=== PATIENT | male | born 1960 | race Caucasian/White ===

== ENCOUNTER 2018-08-19 15:10 | Emergency (ER) | payer BC ==
--- OUTSIDE RECORDS SUMMARY | 2018-08-19 15:11 | XMS REPORT ---
:1960 [facility] Address [address] [place] [address] Dr. Read [address] [place] [id number] Care Team Providers Name Role Phone Unavailable Unavailable Unavailable Payers Payer Name Policy Type Policy Number Effective Date Expiration Date Problems This patient has no known problems. Allergies, Adverse Reactions, Alerts Allergy Allergy Status Severity Reaction(s) Onset Inactive Treating Comments Name Type Date Date Clinician No Known DA Active U 2018-03 Drug -25 Allergies 00:00:0 0 No Known DA Active U 2018-03 Drug -24 Allergies 00:00:0 0 No Known DA Active U 2016-02 Drug -18 Allergies 00:00:0 0 Medications This patient has no known medications.
--- OUTSIDE RECORDS SUMMARY | 2018-08-19 15:11 | XMS REPORT | Clinical Summary ---
:1960 Author Organization [facility] Address [address] [place] [address] Care Team Providers Name Role Phone Hema De La Rosa DO Primary Care Provider Allergies No Known Allergies Medications Medication Sig Dispensed Refills Start Date End Date Status buprenorphine-naloxone Place 1 Film 0 Active (SUBOXONE) 8-2 mg film under the tongue daily. meloxicam (MOBIC) 7.5 Take by mouth 0 Active mg/5 mL suspension daily. cyclobenzaprine Take 10 mg by 0 Active (FLEXERIL) 10 mg tablet mouth 3 (three) times a day as needed for muscle spasms. Active Problems Not on file Encounters Date Type Specialty Care Team Description 07/31/2018 Office Visit Orthopedic Surgery Keanu Valadez Scoliosis, S. unspecified scoliosis type, unspecified spinal region (Primary Dx) 07/28/2018 Hospital Encounter Radiology Keanu Valadez 07/07/2018 Orders Only Orthopedic Surgery Obinna Perez MA Spinal stenosis of lumbar region, unspecified whether neurogenic claudication present (Primary Dx); Other kyphosis, site unspecified; Scoliosis, unspecified scoliosis type, unspecified spinal region 07/03/2018 Office Visit Orthopedic Surgery Keanu Valadez Other secondary S. scoliosis, lumbar region (Primary Dx) 05/08/2018 Hospital Encounter Radiology Keanu Valadez 05/08/2018 Hospital Encounter Radiology Keanu Valadez 05/08/2018 Hospital Encounter Radiology Keanu Valadez 05/08/2018 Hospital Encounter Radiology Keanu Valadez 05/08/2018 Office Visit Orthopedic Surgery Keanu Valadez Scoliosis, S. unspecified scoliosis type, unspecified spinal region (Primary Dx) after 08/18/2017 Social History Tobacco Use Types Packs/Day Years Used Date Former Smoker 1 20 Quit: 04/2018 Smokeless Tobacco: Never Used Alcohol Use Drinks/Week oz/Week Comments No Alcohol Habits Answer Date Recorded How often do you have a drink containing alcohol? Never 08/18/2018 How many drinks containing alcohol do you have on a typical Not asked day when you are drinking? How often do you have six or more drinks on one occasion? Not asked Sex Assigned at Date Recorded Not on file Job Start Date Occupation Industry Not on file Not on file Not on file Travel History Travel Start Travel End No recent travel history available. 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 Height 170.2 cm (5' 7") 08/18/2018 10:19 AM INSURANCE EXECUTIVE Body Mass Index 29.76 08/18/2018 10:19 AM INSURANCE EXECUTIVE Plan of Treatment Date Type Specialty Care Team Description 08/21/2018 Office Visit Neurosurgery Huseyin Childs MD [address] [facility] [address] [place] [address] [phone] Health Maintenance Due Date Last Done Comments COLON CANCER SCREENING 2008 SHINGLES VACCINES (1 of 2) 2008 INFLUENZA VACCINE 02/22/2018 Procedures Procedure Name Priority Date/Time Associated Diagnosis Comments CT SPINE EXTERNAL Routine 07/21/2018 1:39 PM Results for this STUDY INSURANCE EXECUTIVE procedure are in the results section. XR SPINE SCOLIOSIS Routine 05/08/2018 4:53 PM Scoliosis, Results for this 2-3 VIEWS CDT unspecified procedure are in scoliosis type, the results unspecified spinal section. region XR SPINE EXTERNAL Routine 04/12/2018 9:34 AM Results for this STUDY CDT procedure are in the results section. MRI SPINE EXTERNAL Routine 01/30/2018 12:47 PM Results for this STUDY CDT procedure are in the results section. after 08/18/[address] Spine External Study (07/21/2018 1:39 PM INSURANCE EXECUTIVE) Narrative Performed At This exam was not acquired at a [facility] facility and has not been [facility] interpreted by a [facility] Provider.The exam was imported into our imaging system for comparisons purposes. Performing Organization Address City/State/Zipcode Phone Number [facility] [address] [place] [address] XR Spine Scoliosos 2-3 Views (05/08/2018 4:53 PM CDT) Narrative Performed At Standing PA and lateral views of the entire spine are reviewed today.He SONYA BENNETT has a somewhat imbalanced scoliosis with a 31 degree right thoracic, 37 degree left lumbar curvature.The apex of his left lumbar curvature is L3.Coronal imbalance to the right.He has quite a bit of degenerative changes and bridging osteophytes throughout his spine.He appears to have prior laminectomy changes from L3 through L5, possibly L2 as well. Looking at his lateral film, he has severe spondylosis L5-S1, grade 1 degenerative spondylolisthesis at L4-5 with severe spondylosis at this level as well.He has 17 degrees of kyphosis from T10-L3.His C7 latasha line falls approximately 9 cm in front of the sacrum.27 degrees of lumbar lordosis and a pelvic incidence of 49 degrees, for a pelvic incidence lumbar lordosis mismatch of 22 degrees. Performing Organization Address [facility] Phone Number [facility] [address] [place] [address] XR Spine External Study (04/12/2018 9:34 AM CDT) Narrative Performed At This exam was not acquired at a [facility] facility and has not been [facility] interpreted by a [facility] Provider.The exam was imported into our imaging system for comparisons purposes. Performing Organization Address [facility] Phone Number [facility] [address] [place] [address] MRI Spine External Study (01/30/2018 12:47 PM CDT) Narrative Performed At This exam was not acquired at a [facility] facility and has not been [facility] interpreted by a [facility] Provider.The exam was imported into our imaging system for comparisons purposes. Performing Organization Address [facility] Phone Number [facility] [address] [place] [address] after 08/18/2017 Insurance Payer Benefit Plan / Group Subscriber ID Type Phone Address [facility] JOSSE CARRERO xxxxxxxxxxxx PPO Advance Directives Patient has advance care planning documents on file. For more information, please contact:Igor Rodgers[address] [place] [address]
--- NOTE | 2018-08-19 17:01 | RAD REPORT ---
EXAM DESCRIPTION: RAD - Foot Left 3 View - 08/19/2018 4:33 pm CLINICAL HISTORY: Left foot pain and swelling, trauma history COMPARISON: None. FINDINGS: No fracture, dislocation or periosteal reaction. No acute or destructive bony process. Mo derate-sized plantar and small Achilles spurs. No air or foreign body in the soft tissues. IMPRESSION: No fracture or acute bone finding. Plantar and Achilles spurs are present. Repeat imaging in 7 days recommended if the patient has continued symptoms concerning for fracture.
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
== END 2018-08-19 17:27 | disposition home or self-care (01) ==
LOC: ER 15:10
DX: S90.32XA Contusion of left foot, initial encounter (principal); W22.8XXA Striking against or struck by other objects, initial encounter; Y93.9 Activity, unspecified; Y92.9 Unspecified place or not applicable
CPT/HCPCS: 99283

== ENCOUNTER 2019-03-13 13:58 | Emergency (ER) | payer BC ==
--- OUTSIDE RECORDS SUMMARY | 2019-03-13 14:02 | XMS REPORT ---
:1960 [facility] Address [address] [place] [address] Dr. Read [address] [place] [id number] Care Team Providers Name Role Phone Unavailable [...]
--- OUTSIDE RECORDS SUMMARY | 2019-03-13 14:02 | XMS REPORT | Clinical Summary ---
:1960 Author Organization [facility] Address [address] [place] [address] Care Team Providers Name Role Phone Hema De La Rosa DO Primary Care Provider Allergies No Known Allergies Medications Medication Sig Dispensed Refills Start End Date Status Date cyclobenzaprine Take 10 mg 0 Active (FLEXERIL) 10 mg by mouth tablet daily. cholecalciferol, Take 1,000 0 Active vitamin D3, (VITAMIN Units by D3) 1,000 unit tablet mouth daily. ascorbic acid, Take 500 mg 0 Active vitamin C, (VITAMIN by mouth C) 500 MG tablet daily. testosterone every 30 0 Active cypionate (thirty) 9 (DEPOTESTOTERONE days. CYPIONATE) 200 mg/mL injection buprenorphine-naloxon Place 1 Film 0 11/05/19 Discontinued e (SUBOXONE) 8-2 mg under the 19 (Stop Taking at film tongue 2 Discharge) (two) times a day. meloxicam (MOBIC) 7.5 Take by 0 10/03/19 Discontinued mg/5 mL suspension mouth daily. 19 (Med List Cleanup) meloxicam (MOBIC) 7.5 every 0 11/05/19 Discontinued mg tablet morning. 8 19 (Stop Taking at Discharge) cyclobenzaprine Take 10 mg 0 10/03/19 Discontinued (FLEXERIL) 10 mg by mouth 7 19 (Duplicate tablet every order) morning. acetaminophen Take 2 0 11/05/19 Discontinued (TYLENOL) 325 MG tablets (650 9 19 (Stop Taking at tablet mg total) by Discharge) mouth every 8 (eight) hours as needed (pain) for up to 30 days. pregabalin (LYRICA) Take 1 0 11/05/19 Discontinued 150 MG capsule capsule (150 9 19 mg total) by mouth 3 (three) times a day for 30 days. heparin Inject 1 mL 0 11/05/19 Discontinued sodium,porcine (5,000 Units 9 19 (Stop Taking at (HEPARIN, PORCINE,) total) under Discharge) 5,000 unit/mL the skin injection every 12 (twelve) hours. ramelteon (ROZEREM) 8 Take 1 0 11/05/19 Discontinued mg tablet tablet (8 mg 9 19 total) by mouth nightly as needed for sleep. methylnaltrexone Inject 0.6 0 11/05/19 Discontinued (RELISTOR) 12 mg/0.6 mL (12 mg 9 19 (Stop Taking at mL syringe total) under Discharge) the skin every other day. morPHINE (MS CONTIN) Take 1 0 11/18/19 30 MG 12 hr tablet tablet (30 9 19 mg total) by mouth every 8 (eight) hours for 14 days. Max Daily Amount: 90 mg morPHINE Take 1 0 11/18/19 immediate-release 15 tablet (15 9 19 MG tablet mg total) by mouth every 4 (four) hours as needed (pain) for up to 14 days. Max Daily Amount: 90 mg pregabalin (LYRICA) Take 1 90 capsule 0 12/05/19 150 MG capsule capsule (150 9 19 mg total) by mouth 3 (three) times a day for 30 days. ramelteon (ROZEREM) 8 Take 1 15 tablet 0 11/20/19 mg tablet tablet (8 mg 9 19 total) by mouth nightly as needed for sleep for up to 15 days. 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 Scoliosis due to degenerative disease of spine in adult patient 08/21/2018 Lumbar stenosis with neurogenic claudication 08/21/2018 Encounters Date Type Specialty Care Team Description 02/14/2019 Office Visit Neurosurgery Huseyin Childs S/P lumbar fusion MD Addison (Primary Dx) 02/14/2019 Hospital Encounter Radiology Huseyin Childs Other form of MD Addison scoliosis of thoracolumbar spine 02/14/2019 Orders Only Neurosurgery Law, Lumbar pain (Primary Dx); DANE Brown Thoracic back pain, unspecified back pain laterality, unspecified chronicity; Scoliosis (and kyphoscoliosis), idiopathic; Scoliosis due to degenerative disease of spine in adult patient; Scoliosis of thoracolumbar region due to degenerative disease of spine in adult; Thoracic spine pain 02/12/2019 Orders Only Neurosurgery Huseyin hCilds Other form of MD Addison scoliosis of thoracolumbar spine (Primary Dx) 11/15/2018 Office Visit Neurosurgery Huseyin Childs Scoliosis due to MD Addison degenerative disease of spine in adult patient (Primary Dx) 11/15/2018 Hospital Encounter Radiology Huseyin Childs Scoliosis of MD Addison thoracolumbar spine, unspecified scoliosis type 11/15/2018 Orders Only Neurosurgery Mireya Pablo MA 11/14/2018 Orders Only Neurosurgery Angel Pablo of DANE Gomes thoracolumbar spine, unspecified scoliosis type (Primary Dx) 11/04/2018 Documentation Business Intelligence Director Alonzo Tanesha 10/28/2018 Documentation Otolaryngology Huseyin Childs MD 10/20/2018 Surgery General Surgery Huseyin Childs T9-S1 THORACOLUMBAR MD Addison POSTERIOR FUSION W/ INSTRUMENTATION, MULTI-LEVEL POWERS-LUNA OSTEOTOMIES, EMG'S, SSEP'S, MEP'S MONITORING 10/20/2018 Anesthesia Event General Surgery Hema Munoz MD Felan, Priyanka Araya, RADIATOR SPECIALIST 10/17/2018 Anesthesia Event General Surgery Piotr Ann MD Felan, Veronica Lynn, RADIATOR SPECIALIST 10/17/2018 Surgery General Surgery Huseyin Childs L5-S1 ANTERIOR LUMBAR MD Addison INTERBODY FUSION W/ INSTRUMETATION, L2-L5, LATERAL LUMBAR INTERBODY FUSION W/ INSTRUMENTATION W/ EMG'S, SSEP'S, AND MEP'S 10/17/2018 Hospital Encounter Neurosurgery Huseyin Childs Scoliosis due to degenerative disease of spine in adult patient; Jeanne Jaime MD Lumbar stenosis with neurogenic claudication 11/04/2018 10/02/2018 Hospital Encounter Radiology Huseyin Childs Preop examination MD Addison 10/02/2018 Pre-Admit Testing Pre-Admission Huseyin Childs Pre-op testing Appointment Testing MD Addison (Primary Dx) 10/02/2018 Transcribe Orders Access Huseyin Childs Preop examination MD Addison (Primary Dx) 08/21/2018 Hospital Encounter Radiology Huseyin Childs MD 08/21/2018 Hospital Encounter Radiology Huseyin Childs MD 08/21/2018 Hospital Encounter Radiology Huseyin Childs Other bonnie Jaime MD disorders of bone density and structure, multiple sites 08/21/2018 Hospital Encounter Radiology Huseyin Childs Other bonnie Jaime MD disorders of bone density and structure, multiple sites 08/21/2018 Office Visit Neurosurgery Huseyin Childs Sagittal plane imbalance (Primary Dx); MD Addison Scoliosis due to degenerative disease of spine in adult patient; Lumbar stenosis with neurogenic claudication 08/21/2018 Orders Only Neurosurgery Samy, Other specified DANE Gomes disorders of bone density and structure, multiple sites (Primary Dx) 07/31/2018 Office Visit Orthopedic Surgery Rory, Scoliosis, Keanu S. unspecified scoliosis type, unspecified spinal region (Primary Dx) 07/28/2018 Hospital Encounter Radiology Keanu Simpson SGregory 07/07/2018 Orders Only Orthopedic Surgery PerezYossi hamiltonro, Spinal stenosis of lumbar region, unspecified whether neurogenic claudication present (Primary Dx); DANE Other kyphosis, site unspecified; Scoliosis, unspecified scoliosis type, unspecified spinal region 07/03/2018 Office Visit Orthopedic Surgery Rory, Other secondary Keanu S. scoliosis, lumbar region (Primary Dx) 05/08/2018 Hospital Encounter Radiology Keanu Simpson S. 05/08/2018 Hospital Encounter Radiology Keanu Simpson S. 05/08/2018 Hospital Encounter Radiology Keanu Simpson S. 05/08/2018 Hospital Encounter Radiology Keanu Simpsno S. 05/08/2018 Office Visit Orthopedic Surgery Rory, Scoliosis, Keanu S. unspecified scoliosis type, unspecified spinal region (Primary Dx) after 03/12/2018 Family History Medical History Relation Name Comments Lung cancer Mother Relation Name Status Comments Father Bile duct cancer Mother Social History Tobacco Use Types Packs/Day Years Used Date Former Smoker 2 30 Quit: 07/2018 Smokeless Tobacco: Never Used Alcohol Use Drinks/Week oz/Week Comments Yes social Alcohol Habits Answer Date Recorded How often [...] Vital Signs Vital Sign Reading Time Taken Comments Blood Pressure 125/63 11/04/2018 11:24 AM CDT Pulse 70 11/04/2018 11:24 AM CDT Temperature 37.1 C (98.7 F) 11/04/2018 11:24 AM CDT Respiratory Rate 18 11/04/2018 11:24 AM CDT Oxygen Saturation 97% 11/04/2018 11:24 AM CDT Inhaled Oxygen Concentration - - Weight 83.9 kg (185 lb) 10/20/2018 7:00 AM CDT Height 167.6 cm (5' 6") 10/20/2018 7:00 AM CDT Body Mass Index 29.86 10/20/2018 7:00 AM CDT Plan of Treatment Date Type Specialty Care Team Description 10/22/2019 Appointment Radiology Huseyin Childs MD [address] [facility] [address] [place] [address] [phone] 10/22/2019 Appointment Radiology Huseyin Childs MD [address] [facility] [address] [place] [address] [phone] 10/22/2019 Appointment Radiology Huseyin Childs MD [address] [facility] [address] [place] [address] [phone] 10/22/2019 Appointment Radiology Huseyin Childs MD [address] [facility] [address] [place] [address] 10/22/2019 Appointment Radiology Huseyin Childs MD [address] [facility] [address] [place] [phone] 10/22/2019 Office Visit Neurosurgery Huseyin Childs MD [address] [address] [phone] Health Maintenance Due Date Last Done Comments COLONOSCOPY SCREENING 2008 SHINGLES VACCINES (#1) 2008 INFLUENZA VACCINE 02/22/2019 06/24/2018 Implants Implanted Type Area Shop Tech Device Shelf Model / Identifier Expiration Serial / Lot Date System Spine Selnt For Dural Selng Exact 5ml Duraseal - [id number] Cardiovascular N/A: INTEGRA 12/23/[id number] / Implanted: 10/20/2018 at [facility] (Quantity not on file) Implants N/A LIFESCIENCE / NEURO [id number] System Spine Selnt For Dural Selng Exact 5ml Duraseal - [id number] Cardiovascular N/A: INTEGRA 12/23/[id number] / Implanted: Qty: 1 on 10/20/2018 by Huseyin Childs MD at [facility] Implants N/A LIFESCIENCE / NEURO [id number] Bone Matriz Osteocel Pro Large - [id number] - [id number] Human Tissue N/A: NUVASIVE 06/02/2023 [id number] / Implanted: Qty: 1 on 10/17/2018 by Huseyin Childs MD at [facility] Implants Spine [id number] / Lumbar LOT NA Bone Matriz Osteocel Pro Large - [id number] - [id number] Human Tissue N/A: NUVASIVE 03/05/2023 [id number] / Implanted: Qty: 1 on 10/17/2018 by Huseyin Childs MD at [facility] Implants Spine [id number] / Lumbar LOT NA Kit Bone Grft Lmbr Tprd 8ml Xxl Infuse - [id number] Human Tissue N/A: MEDTRONIC 12/23/2019 [id number] / Implanted: Qty: 1 on 10/20/2018 by Huseyin Childs MD at [facility] Implants N/A SPINAL AND / BIOLOGICS [id number] Paste Dbm Easy-Dispensing Wdmth Syr 10ml [place] [address] - [id number] - [id number] Human Tissue N/A: MEDTRONIC 08/23/2020 [id number] / Implanted: Qty: 1 on 10/20/2018 by Huseyin Childs MD at [facility] Implants N/A SPINAL GRAFT [id number] / TECHNOLOGIES [id number] Paste Dbm Easy-Dispensing Wdmth Syr 10ml [address] - [id number] - [id number] Human Tissue N/A: MEDTRONIC 08/23/2020 [id number] / Implanted: Qty: 1 on 10/20/2018 by Huseyin Childs MD at [facility] Implants N/A SPINAL GRAFT [id number] / TECHNOLOGIES [id number] Bone Cancellous 30ml Chips - [id number] - [id number] Human Tissue N/A: RTI SURGICAL 06/19/2023 [id number] / Implanted: Qty: 1 on 10/20/2018 by Huseyin Childs MD at [facility] Implants N/A INC. [id number] / [id number] Bone Cancellous 30ml Chips - [id number] - [id number] Human Tissue N/A: RTI SURGICAL 06/19/2023 [id number] / Implanted: Qty: 1 on 10/20/2018 by Huseyin Childs MD at [facility] Implants N/A INC. [id number] / [id number] Matrix Dural Duragen Plus 1x3in Regnrtn - [id number] Human Tissue N/A: INTEGRA 05/24/2021 [id number] / Implanted: Qty: 1 on 10/20/2018 by Huseyin Childs MD at [facility] Implants N/A LIFESCIENCE / NEURO [id number] Base Ti Hyperlordotic Imp, [id number] - [id number] IPM IMPLANT N/A: NUVASIVE [id number] / Implanted: 10/17/2018 at [facility] (Quantity not on file) DEVICES Spine SPINE / Lumbar Base [place], 5.0x17.5mm Ike - [id number] IPM IMPLANT N/A: NUVASIVE [id number] / Implanted: 10/17/2018 at [facility] (Quantity not on file) DEVICES Spine SPINE / Lumbar Modulus Xlw, [id number] 10deg - [id number] IPM IMPLANT N/A: NUVASIVE 03/21 [id number] / Implanted: 10/17/2018 at [facility] (Quantity not on file) DEVICES N/A SPINE / [id number] Coroent Xl Coronal Tapered Implants, Peek Xl(Ct) - [id number] - [id number] IPM IMPLANT N/A: NUVASIVE 06/24/2023 [id number] / Implanted: 10/17/2018 at [facility] (Quantity not on file) DEVICES Spine SPINE / Lumbar N/A Unid Patient Specific Lele 5.5 - [id number] [id number] IMPLANT N/A: MEDICREA [id number] / Implanted: Qty: 1 on 10/17/2018 by Huseyin Childs MD at [facility] DEVICES Spine INT'L / Lumbar Unid Patient Specific Lele 5.5 - [id number] [id number] IMPLANT N/A: MEDICREA [id number] / Implanted: 10/20/2018 at [facility] (Quantity not on file) DEVICES N/A INT 'L / [id number] Unid Patient Specific Lele 5.5 - [id number] [id number] IMPLANT N/A: MEDICREA [id number] / Implanted: 10/20/2018 at [facility] (Quantity not on file) DEVICES N/A INT 'L / LOTNA Unid Patient Specific Lele 5.5 - [id number] IPM IMPLANT N/A: MEDICREA [id number] / Implanted: 10/20/2018 at [facility] (Quantity not on file) DEVICES N/A INT 'L / LOTNA Screw [id number] 5.5/6.0 Drmas 7.5x50 - [id number] IPM IMPLANT N/A: MEDTRONIC [id number] / Implanted: Qty: 1 on 10/20/2018 by Huseyin Childs MD at [facility] DEVICES N/A SOFAMOR DANEK / Screw [id number] 5.5 Mas 7.5x100 Cc - [id number] IPM IMPLANT N/A: MEDTRONIC [id number] / Implanted: Qty: 1 on 10/20/2018 by Huseyin Childs MD at [facility] DEVICES N/A SOFAMOR DANEK / Screw [id number] Bs Cnmas 7.5x90 T/C - [id number] IPM IMPLANT N/A: MEDTRONIC [id number] / Implanted: Qty: 1 on 10/20/2018 by Huseyin Childs MD at [facility] DEVICES N/A SOFAMOR DANEK / Screw [id number] 5.5 Mas 8.5x50 Cc - [id number] IPM IMPLANT N/A: MEDTRONIC [id number] / Implanted: Qty: 1 on 10/20/2018 by Huseyin Childs MD at [facility] DEVICES N/A SOFAMOR DANEK / Screw [id number] 5.5 Mas 8.5x45 Cc - [id number] IPM IMPLANT N/A: MEDTRONIC [id number] / Implanted: Qty: 1 on 10/20/2018 by Huseyin Childs MD at [facility] DEVICES N/A SOFAMOR DANEK / Screw [id number] 5.5 Mas 8.5x40 Cc - [id number] IPM IMPLANT N/A: MEDTRONIC [id number] / Implanted: Qty: 1 on 10/20/2018 by Huseyin Childs MD at [facility] DEVICES N/A SOFAMOR DANEK / Screw [id number] 5.5 Mas 6.5x55 Cc - [id number] IPM IMPLANT N/A: MEDTRONIC [id number] / Implanted: Qty: 3 on 10/20/2018 by Huseyin Childs MD at [facility] DEVICES N/A SOFAMOR DANEK / Screw [id number] 5.5 Mas 7.5x50 Cc - [id number] IPM IMPLANT N/A: MEDTRONIC [id number] / Implanted: Qty: 1 on 10/20/2018 by Huseyin Childs MD at [facility] DEVICES N/A SOFAMOR DANEK / Screw [id number] 5.5 Mas 7.5x45 Cc - [id number] IPM IMPLANT N/A: MEDTRONIC [id number] / Implanted: Qty: 1 on 10/20/2018 by Huseyin Childs MD at [facility] DEVICES N/A SOFAMOR DANEK / Screw [id number] 5.5 Mas 7.5x45 Cc - [id number] IPM IMPLANT N/A: MEDTRONIC [id number] / Implanted: Qty: 2 on 10/20/2018 by Huseyin Childs MD at [facility] DEVICES N/A SOFAMOR DANEK / Screw [id number] 5.5/6.0 Drmas 7.5x50 - [id number] IPM IMPLANT N/A: MEDTRONIC [id number] / Implanted: Qty: 1 on 10/20/2018 by Huseyin Childs MD at [facility] DEVICES N/A SOFAMOR DANEK / Screw [id number] 5.5 Mas 7.5x55 Cc - [id number] IPM IMPLANT N/A: MEDTRONIC [id number] / Implanted: Qty: 1 on 10/20/2018 by Huseyin Childs MD at [facility] DEVICES N/A SOFAMOR DANEK / Screw [id number] 5.5 Mas 7.5x55 Cc - [id number] IPM IMPLANT N/A: MEDTRONIC [id number] / Implanted: Qty: 1 on 10/20/2018 by Huseyin Childs MD at [facility] DEVICES N/A SOFAMOR DANEK / Screw [id number] 5.5 Mas 6.5x50 Cc - [id number] IPM IMPLANT N/A: MEDTRONIC [id number] / Implanted: Qty: 1 on 10/20/2018 by Huseyin Childs MD at [facility] DEVICES N/A SOFAMOR DANEK / Screw [id number] 5.5 Mas 6.5x45 Cc - [id number] IPM IMPLANT N/A: MEDTRONIC [id number] / Implanted: Qty: 5 on 10/20/2018 by Huseyin Childs MD at [facility] DEVICES N/A SOFAMOR DANEK / Screw [id number] 5.5 Mas 5.5x50 Cc - [id number] IPM IMPLANT N/A: MEDTRONIC [id number] / Implanted: Qty: 1 on 10/20/2018 by Huseyin Childs MD at [facility] DEVICES N/A SOFAMOR DANEK / Screw [id number] 5.5 Mas 5.5x45 Cc - [id number] IPM IMPLANT N/A: MEDTRONIC [id number] / Implanted: Qty: 1 on 10/20/2018 by Huseyin Childs MD at [facility] DEVICES N/A SOFAMOR DANEK / Lele [id number] 5.9calepbxnevmfr110oefmol - [id number] IPM IMPLANT N/A: MEDTRONIC [id number] / Implanted: Qty: 1 on 10/20/2018 by Huseyin Childs MD at [facility] DEVICES N/A SOFAMOR DANEK / Set Screw [id number] 5.5 Ti Ns Brk Off - [id number] Orthopedic N/A: MEDTRONIC [id number] / Implanted: Qty: 24 on 10/20/2018 by Huseyin Childs MD at [facility] Trauma Implants N/A SOFAMOR DANEK / Kit Dil M5 Xlif - [id number] Spinal Implants N/A: NUVASIVE [id number] / Implanted: 10/17/2018 at [facility] (Quantity not on file) N/A / Connector Lele Spinal Ti 5.5x5.5mm Strl - [id number] Spinal Implants N/A: MEDTRONIC [id number] / Implanted: Qty: 1 on 10/20/2018 by Huseyin Childs MD at [facility] N/A SPINAL AND / BIOLOGICS Screw Set Std Ti 1/4in 32mm - [id number] Spinal Implants N/A: MEDTRONIC [id number] / Implanted: Qty: 2 on 10/20/2018 by Huseyin Childs MD at [facility] N/A SPINAL AND / BIOLOGICS Procedures Procedure Name Priority Date/Time Associated Diagnosis Comments XR SPINE SCOLIOSIS 2-3 Routine 02/14/2019 12:36 Other form of Results for this VIEWS PM CDT scoliosis of procedure are in thoracolumbar spine the results section. XR SPINE SCOLIOSIS 2-3 Routine 11/15/2018 2:49 Scoliosis of Results for this VIEWS PM CDT thoracolumbar spine, procedure are in unspecified scoliosis the results type section. ESTIMATED GFR Routine 11/02/2018 3:10 Results for this AM CDT procedure are in the results section. HC COMPLETE BLD COUNT Routine 11/02/2018 3:10 Results for this W/AUTO DIFF AM CDT procedure are in the results section. BASIC METABOLIC PANEL Routine 11/02/2018 3:10 Results for this AM CDT procedure are in the results section. XR ABDOMEN 2 VW AP W Routine 10/29/2018 9:07 Results for this UPRIGHT AND/OR AM CDT procedure are in DECUBITUS the results section. ESTIMATED GFR Routine 10/28/2018 10:20 Results for this AM CDT procedure are in the results section. BASIC METABOLIC PANEL Routine 10/28/2018 10:20 Results for this AM CDT procedure are in the results section. HC COMPLETE BLD COUNT Routine 10/28/2018 10:02 Results for this W/AUTO DIFF AM CDT procedure are in the results section. XR ABDOMEN 1 VW STAT 10/28/2018 9:05 Results for this PORTABLE AM CDT procedure are in the results section. ESTIMATED GFR Routine 10/27/2018 4:30 Results for this AM CDT procedure are in the results section. HC COMPLETE BLD COUNT Routine 10/27/2018 4:30 Results for this W/AUTO DIFF AM CDT procedure are in the results section. BASIC METABOLIC PANEL Routine 10/27/2018 4:30 Results for this AM CDT procedure are in the results section. XR ABDOMEN 1 VW STAT 10/24/2018 8:16 Results for this PORTABLE AM CDT procedure are in the results section. ZINC LEVEL, SERUM Routine 10/23/2018 7:15 Results for this PM CDT procedure are in the results section. VITAMIN B12 LEVEL Routine 10/23/2018 7:15 Results for this PM CDT procedure are in the results section. VITAMIN C LEVEL, Routine 10/23/2018 7:15 Results for this PLASMA PM CDT procedure are in the results section. XR ABDOMEN 1 VW Routine 10/23/2018 2:24 Results for this PORTABLE AM CDT procedure are in the results section. ESTIMATED GFR Routine 10/23/2018 2:00 Results for this AM CDT procedure are in the results section. BASIC METABOLIC PANEL Routine 10/23/2018 2:00 Results for this AM CDT procedure are in the results section. HC COMPLETE BLD COUNT Routine 10/23/2018 2:00 Results for this W/AUTO DIFF AM CDT procedure are in the results section. XR ABDOMEN 1 VW STAT 10/22/2018 11:13 Results for this PORTABLE PM CDT procedure are in the results section. HEMOGLOBIN & STAT 10/22/2018 5:30 Results for this HEMATOCRIT AM CDT procedure are in the results section. HEMOGLOBIN Routine 10/22/2018 3:20 Results for this AM CDT procedure are in the results section. HEMOGLOBIN Routine 10/21/2018 4:50 Results for this AM CDT procedure are in the results section. XR LUMBAR SPINE 2 OR 3 Routine 10/20/2018 3:32 Scoliosis due to Results for this VW PM CDT degenerative disease procedure are in of spine in adult the results patient section. Lumbar stenosis with neurogenic claudication FIBRINOGEN Routine 10/20/2018 3:30 Results for this PM CDT procedure are in the results section. PROTHROMBIN TIME WITH Routine 10/20/2018 3:30 Results for this INR PM CDT procedure are in the results section. LACTIC ACID, SYRINGE STAT 10/20/2018 3:30 Results for this PM CDT procedure are in the results section. MAGNESIUM LEVEL STAT 10/20/2018 3:30 Results for this PM CDT procedure are in the results section. GLUCOSE LEVEL, SYRINGE STAT 10/20/2018 3:30 Results for this PM CDT procedure are in the results section. IONIZED CALCIUM, STAT 10/20/2018 3:30 Results for this ARTERIAL PM CDT procedure are in the results section. HEMOGLOBIN, SYRINGE STAT 10/20/2018 3:30 Results for this PM CDT procedure are in the results section. POTASSIUM, SYRINGE STAT 10/20/2018 3:30 Results for this PM CDT procedure are in the results section. SODIUM LEVEL, SYRINGE STAT 10/20/2018 3:30 Results for this PM CDT procedure are in the results section. ARTERIAL BLOOD GAS, STAT 10/20/2018 3:30 Results for this CORRECTED PM CDT procedure are in the results section. INTRAOPERATIVE Routine 10/20/2018 2:58 MONITORING PM CDT OR FL > 1 HOUR Routine 10/20/2018 2:50 Scoliosis due to Results for this PM CDT degenerative disease procedure are in of spine in adult the results patient section. Lumbar stenosis with neurogenic claudication LACTIC ACID, SYRINGE STAT 10/20/2018 1:11 Results for this PM CDT procedure are in the results section. MAGNESIUM LEVEL STAT 10/20/2018 1:11 Results for this PM CDT procedure are in the results section. HEMOGLOBIN, SYRINGE STAT 10/20/2018 1:11 Results for this PM CDT procedure are in the results section. GLUCOSE LEVEL, SYRINGE STAT 10/20/2018 1:11 Results for this PM CDT procedure are in the results section. IONIZED CALCIUM, STAT 10/20/2018 1:11 Results for this ARTERIAL PM CDT procedure are in the results section. SODIUM LEVEL, SYRINGE STAT 10/20/2018 1:11 Results for this PM CDT procedure are in the results section. POTASSIUM, SYRINGE STAT 10/20/2018 1:11 Results for this PM CDT procedure are in the results section. ARTERIAL BLOOD GAS, STAT 10/20/2018 1:11 Results for this CORRECTED PM CDT procedure are in the results section. MAGNESIUM LEVEL STAT 10/20/2018 10:54 Results for this AM CDT procedure are in the results section. LACTIC ACID, SYRINGE STAT 10/20/2018 10:54 Results for this AM CDT procedure are in the results section. GLUCOSE LEVEL, SYRINGE STAT 10/20/2018 10:54 Results for this AM CDT procedure are in the results section. IONIZED CALCIUM, STAT 10/20/2018 10:54 Results for this ARTERIAL AM CDT procedure are in the results section. POTASSIUM, SYRINGE STAT 10/20/2018 10:54 Results for this AM CDT procedure are in the results section. HEMOGLOBIN, SYRINGE STAT 10/20/2018 10:54 Results for this AM CDT procedure are in the results section. ARTERIAL BLOOD GAS, STAT 10/20/2018 10:54 Results for this CORRECTED AM CDT procedure are in the results section. SODIUM LEVEL, SYRINGE STAT 10/20/2018 10:54 Results for this AM CDT procedure are in the results section. ARTERIAL LINE Routine 10/20/2018 7:53 AM CDT Procedure Note - Hussain Beyer CRNA - 10/20/2018 7:53 AM CDT Arterial line Performed by: Maxi Dupont II, MD Authorized by: Maxi Dupont II, MD Patient Location: OR Start Time: 10/20/2018 7:53 AM End Time: 10/20/2018 7:53 AM Staff: Performed by: Anesthesiologist Pre-procedure: patient identified, IV checked, site and side verified, risks and benefits discussed, procedure verified, surgical consent complete, patient position confirmed, monitors and equipment checked and pre-op evaluation complete MSBT: antiseptic used, hand hygiene performed and cap/gown used by other personnel Indications: Indications: multiple ABGs and hemodynamic monitoring Anesthesia: Anesthesia: General Procedure Details: Arterial Line placement: Placed post induction Line placement site: Radial Line placement side: Right Arterial line gauge: 20 G Number of attempts: 1 Ultrasound guidance used: No Post-procedure: Post-procedure: Sterile dressing applied Post procedure circulation, sensation, movement: Unable to assess Patient tolerance: Patient tolerated the procedure well with no immediate complications [place] AN ELECTIVE ENDOTRACHEAL AIRWAY Routine 10/20/2018 7:52 AM CDT Procedure Note - Hussain Beyer CRNA - 10/20/2018 7:52 AM CDT Airway Date/Time: 10/20/2018 7:41 AM Performed by: Hussain Beyer CRNA Authorized by: Maxi Dupont II, MD Location: OR Urgency: Elective Difficult Airway: No Performed by: anesthesiologist Preoxygenated with 100% O2: Yes C-spine Precautions Maintained Throughout: Yes Mask Ventilation: Easy mask Final Airway Type: Endotracheal airway Final Endotracheal Airway: ETT Cuffed: Yes Technique Used: Direct laryngoscopy Devices/Methods Used in Placement: Intubating stylet Insertion Site: Oral Blade Type: Gonzalez Laryngoscope Blade/Videolaryngoscope Blade Size: 2 ETT Size (mm): 8.0 Cuff at minimum occlusion pressure: Yes Measured from: Lips ETT to Lips (cm): 22 Placement Verified by: CO2 detection and equal breath sounds Laryngoscopic view: Grade IIa - partial view of glottis Rapid Sequence Induction (RSI): No Modified RSI: No Number of Attempts at Approach: 1 FUSION, SPINE, THORACIC, 10/20/2018 7:30 AM CDT Scoliosis due to degenerative USING POSTERIOR TECHNIQUE disease of spine in adult patient Lumbar stenosis with neurogenic claudication Case Notes PRONE POSITION, PRO AXIS TABLE, EMG'S, SSEP'S, MEP'S MONITORING, STEALTH S7, O ARM , AQUAMANTYS, BONE SCALPEL, MEDTR[employer]IC INSTRUMENTATION, MICROSCOPE, DR ESCOBAR CO-SURGEON Special Needs PRONE POSITION, PRO AXIS TABLE, EMG'S, SSEP'S, MEP'S MONITORING, STEALTH S7, O ARM , AQUAMANTYS, BONE SCALPEL, [employer]TR[employer]IC INSTRUMENTATION, MICROSCOPE, DR ESCOBAR CO-SURGEON TYPE AND SCREEN Routine 10/20/2018 1:40 AM CDT ESTIMATED GFR Routine 10/20/2018 1:40 AM CDT BASIC METABOLIC PANEL Routine 10/20/2018 1:40 AM CDT HC COMPLETE BLD COUNT W/AUTO Routine 10/20/2018 1:40 AM CDT Results for this DIFF procedure are in the results section. PARTIAL THROMBOPLASTIN TIME Routine 10/20/2018 1:40 AM CDT Results for this (PTT) procedure are in the results section. PROTHROMBIN TIME WITH INR Routine 10/20/2018 1:40 AM CDT XR SPINE SCOLIOSIS 2-3 VIEWS Routine 10/19/2018 3:55 PM CDT HEMOGLOBIN Routine 10/19/2018 3:35 AM CDT HEMOGLOBIN Routine 10/18/2018 3:35 AM CDT INTRAOPERATIVE MONITORING Routine 10/17/2018 2:47 PM CDT SURGICAL PATHOLOGY REQUEST Routine 10/17/2018 1:27 PM CDT OR FL > 1 HOUR Routine 10/17/2018 12:15 PM CDT ARTERIAL LINE Routine 10/17/2018 12:09 PM CDT Procedure Note - Quoc Tamez CRNA - 10/17/2018 12:09 PM CDT Arterial line Performed by: Quoc Tamez CRNA Authorized by: Piotr Ann MD Patient Location: OR Start Time: 10/17/2018 7:55 AM Staff: Anesthesiologist: Yariel Olson MD Pre-procedure: patient identified, IV checked, site and side verified, risks and benefits discussed, procedure verified, surgical consent complete, patient position confirmed, monitors and equipment checked and pre-op evaluation complete MSBT: antiseptic used, all elements of maximal sterile barrier technique followed, hand hygiene performed, cap/gown used by other personnel and solutions labeled Indications: Indications: multiple ABGs and hemodynamic monitoring Procedure Details: Arterial Line placement: Placed post induction Line placement site: Radial Line placement side: Right Arterial line gauge: 20 G Number of attempts: 1 Ultrasound guidance used: No Post-procedure: Post-procedure: Sterile dressing applied Post procedure circulation, sensation, movement: Normal Patient tolerance: Patient tolerated the procedure well with no immediate complications IONIZED CALCIUM, ARTERIAL Routine 10/17/2018 9:03 AM CDT GLUCOSE LEVEL, SYRINGE Routine 10/17/2018 9:03 AM CDT POTASSIUM, SYRINGE Routine 10/17/2018 9:03 AM CDT HEMOGLOBIN, SYRINGE Routine 10/17/2018 9:03 AM CDT SODIUM LEVEL, SYRINGE Routine 10/17/2018 9:03 AM CDT ARTERIAL BLOOD GAS, Routine 10/17/2018 9:03 AM CDT Results for this CORRECTED procedure are in the results section. WV AN ELECTIVE ENDOTRACHEAL Routine 10/17/2018 8:52 AM CDT AIRWAY Procedure Note - Quoc Tamez CRNA - 10/17/2018 8:52 AM CDT Airway Date/Time: 10/17/2018 7:57 AM Performed by: Quoc Tamez CRNA Authorized by: Piotr Ann MD Location: OR Urgency: Elective Difficult Airway: No Resident/DENSITOMETRIST/AA: Quoc Tamez CRNA Performed by: resident/DENSITOMETRIST/AA Preoxygenated with 100% O2: Yes C-spine Precautions Maintained Throughout: No Mask Ventilation: Easy mask Final Airway Type: Endotracheal airway Final Endotracheal Airway: ETT Cuffed: Yes Technique Used: Direct laryngoscopy Devices/Methods Used in Placement: Intubating stylet Insertion Site: Oral Blade Type: Gonzalez Laryngoscope Blade/Videolaryngoscope Blade Size: 2 ETT Size (mm): 8.0 Cuff at minimum occlusion pressure: Yes Measured from: Lips ETT to Lips (cm): 23 Placement Verified by: CO2 detection, direct visualization and equal breath sounds Laryngoscopic view: Grade IIa - partial view of glottis Rapid Sequence Induction (RSI): No Modified RSI: No Number of Attempts at Approach: 1 FUSION, ANTERIOR SPINAL 10/17/2018 7:44 AM CDT Scoliosis due to degenerative COLUMN, LUMBAR, ANTERIOR disease of spine in adult APPROACH patient Lumbar stenosis with neurogenic claudication Case Notes Dr. Albertina WELSH CO-SURGEON (WORKING FIRST, EST. 30 MIN), Dr. SIMPSON ASSISTING, SUPINE POSITION FIRST, LATERAL: LEFT SIDE UP RIGHT LATERAL DECUBITUS, C-ARM , AMSCO BED, NUVASIVE INSTRUMENTATION, EMG'S, SSEP'S, MEP'S MONITORING Special Needs Dr. Albertina WELSH CO-SURGEON (WORKING FIRST, EST. 30 MIN), Dr. SIMPSON ASSISTING, SUPINE POSITION FIRST, LATERAL: LEFT SIDE UP RIGHT LATERAL DECUBITUS, C-ARM , AMSCO BED, NUVASIVE INSTRUMENTATION, EMG'S, SSEP'S, MEP'S MONITORING GRAM STAIN Routine 10/02/2018 10:23 Results for this AM CDT procedure are in the results section. URINE CULTURE Routine 10/02/2018 10:23 Results for this AM CDT procedure are in the results section. XR CHEST 2 VW Routine 10/02/2018 9:16 Preop examination Results for this AM CDT procedure are in the results section. ECG 12-LEAD Routine 10/02/2018 8:45 Results for this AM CDT procedure are in the results section. URINALYSIS SCREEN AND Routine 10/02/2018 8:34 Pre-op testing Results for this MICROSCOPY, WITH REFLEX AM CDT procedure are in TO CULTURE the results section. ESTIMATED GFR Routine 10/02/2018 8:33 Results for this AM CDT procedure are in the results section. TYPE AND SCREEN Routine 10/02/2018 8:33 Pre-op testing Results for this AM CDT procedure are in the results section. VITAMIN D 25 HYDROXY Routine 10/02/2018 8:33 Pre-op testing Results for this LEVEL AM CDT procedure are in the results section. PARATHYROID HORMONE Routine 10/02/2018 8:33 Pre-op testing Results for this AM CDT procedure are in the results section. PHOSPHORUS LEVEL Routine 10/02/2018 8:33 Pre-op testing Results for this AM CDT procedure are in the results section. MAGNESIUM LEVEL Routine 10/02/2018 8:33 Pre-op testing Results for this AM CDT procedure are in the results section. HEPATIC FUNCTION PANEL Routine 10/02/2018 8:33 Pre-op testing Results for this AM CDT procedure are in the results section. PROTHROMBIN TIME WITH Routine 10/02/2018 8:33 Pre-op testing Results for this INR AM CDT procedure are in the results section. PARTIAL THROMBOPLASTIN Routine 10/02/2018 8:33 Pre-op testing Results for this TIME (PTT) AM CDT procedure are in the results section. BASIC METABOLIC PANEL Routine 10/02/2018 8:33 Pre-op testing Results for this AM CDT procedure are in the results section. CBC HEMOGRAM Routine 10/02/2018 8:33 Pre-op testing Results for this AM CDT procedure are in the results section. XR SPINE EXTERNAL STUDY Routine 08/21/2018 1:23 Results for this PM [facility]ONDE OPERATOR procedure are in the results section. XR SPINE EXTERNAL STUDY Routine 08/21/2018 1:08 Results for this PM RADIOSONDE OPERATOR procedure are in the results section. BONE DENSITY PERIPHERAL Routine 08/21/2018 11:51 Other specified Results for this AM RADIOSONDE OPERATOR disorders of bone procedure are in density and the results structure, multiple section. sites BONE DENSITY Routine 08/21/2018 11:50 Other specified Results for this AM RADIOSONDE OPERATOR disorders of bone procedure are in density and the results structure, multiple section. sites CT SPINE EXTERNAL STUDY Routine 07/21/2018 1:39 Results for this PM RADIOSONDE OPERATOR procedure are in the results section. XR SPINE SCOLIOSIS 2-3 Routine 05/08/2018 4:53 Scoliosis, Results for this VIEWS PM CDT unspecified procedure are in scoliosis type, the results unspecified spinal section. region XR SPINE EXTERNAL STUDY Routine 04/12/2018 9:34 Results for this AM CDT procedure are in the results section. after 03/12/2018 Results XR Spine Scoliosos 2-3 Views (02/14/2019 12:36 PM CDT)Only the most recent of4 resultswithin the time period is included. Specimen Narrative Performed At EXAMINATION: XR SPINE SCOLIOSIS 2-3 VIEWS [facility] CLINICAL HISTORY: M41.85 Other forms of scoliosisthoracolumbar region, scoliosis COMPARISON:Scoliosis study 11/15/2018 IMPRESSION: 12 rib-bearing thoracic vertebrae and 5 lumbar type vertebrae. Right convex thoracic scoliosis with Spivey angle measuring 29 degrees from the superior endplate of T1 to the inferior endplate of L1. Left convex lumbar scoliosis with Spivey angle measuring 31 degrees from the superior endplate of L1 to the inferior endplate of L4. Leftward pelvic tilt with approximately 5 mm offset of the superior aspects of the femoral heads. A coronal latasha line drawn inferiorly from the mid C7 vertebral body terminates approximately 6.3 cm to the right of the mid S1 level, previously 4.8 cm. A sagittal latasha line drawn inferiorly from the mid C7 vertebral body terminates approximately 3.3 cm posterior to the posterior aspect of the superior endplate of S1, previously 2.8 cm anterior. Posterior spinal fusion T9 to the pelvis. Hardware appears intact. Interbody cage devices at L3-L4 and L5-S1. Interbody graft at L4-L5. Gastric band. [id number] Procedure Note Interface, Radiology Results Incoming - 02/14/2019 4:45 PM CDT EXAMINATION: XR SPINE SCOLIOSIS 2-3 VIEWS CLINICAL HISTORY: M41.85 Other forms of scoliosis thoracolumbar region, scoliosis COMPARISON: Scoliosis study 11/15/2018 IMPRESSION: 12 rib-bearing thoracic vertebrae and 5 lumbar type vertebrae. Right convex thoracic scoliosis with Spivey angle measuring 29 degrees from the superior endplate of T1 to the inferior endplate of L1. Left convex lumbar scoliosis with Spivey angle measuring 31 degrees from the superior endplate of L1 to the inferior endplate of L4. Leftward pelvic tilt with approximately 5 mm offset of the superior aspects of the femoral heads. A coronal latasha line drawn inferiorly from the mid C7 vertebral body terminates approximately 6.3 cm to the right of the mid S1 level, previously 4.8 cm. A sagittal latasha line drawn inferiorly from the mid C7 vertebral body terminates approximately 3.3 cm posterior to the posterior aspect of the superior endplate of S1, previously 2.8 cm anterior. Posterior spinal fusion T9 to the pelvis. Hardware appears intact. Interbody cage devices at L3-L4 and L5-S1. Interbody graft at L4-L5. Gastric band. [id number] Performing Organization Address [facility] Centercode Phone Number [address] [address] Estimated GFR (11/02/2018 3:10 AM CDT)Only the most recent of6 resultswithin the time period is included. Estimated GFR >=90 mL/min/1.73 [facility] Comment: HOSPITAL CatergoryUnitsInterpretation G1 >=90 Normal or high G2 60-89Mildly decreased [id number] to moderately decreased D3n84-84Ktflhjksqw to severely decreased G4 15-29Severely decreased G5 <15Kidney failure The eGFR was calculated using the Chronic Kidney Disease Epidemiology Collaboration (CKD-EPI) equation. Interpretation is based on recommendations of the National Kidney Foundation-Kidney Disease Outcomes Quality Initiative (NKF-KDOQI) published in 2014. Specimen Plasma specimen Performing Organization Address City/[facility]/Zipcode Phone Number [facility] DEPARTMENT OF PATHOLOGY AND [address] [place] [phone] [facility] [address] [address] CBC with platelet and differential (11/02/2018 3:10 AM CDT)Only the most recent of5 resultswithin the time period is included. Pathologist [facility] WBC 7.40 4.50 - 11.00 [facility] k/uL HOSPITAL RBC 3.55 (L) 4.40 - 6.00 [facility] m/uL [facility] HGB 10.9 (L) 14.0 - 18.0 [facility] g/dL HOSPITAL HCT 34.9 (L) 41.0 - 51.0 % [facility] MCV 98.3 82.0 - 100.0 [facility] MCH 30.7 27.0 - 34.0 pg [facility] MCHC 31.2 31.0 - 37.0 [facility] g/dL [facility] RDW - SD 55.8 (H) 37.0 - 55.0 fL [facility] MPV 9.6 8.8 - 13.2 fL [facility] Platelet count 451 (H) 150 - 400 k/uL [facility] Nucleated RBC 0.00 /100 WBC [facility] Neutrophils 57.6 39.0 - 69.0 % [facility] Lymphocytes 28.9 25.0 - 45.0 % [facility] Monocytes 9.2 0.0 - 10.0 % [facility] Eosinophils 3.0 0.0 - 5.0 % [facility] Basophils 0.9 0.0 - 1.0 % [facility] Immature granulocytes 0.4Comment: 0.0 - 1.0 % [facility] "Immature HOSPITAL granulocytes" (promyelocytes , myelocytes, metamyelocytes ) Specimen Blood Performing Organization Address City/State/Zipcode Phone Number [facility] DEPARTMENT OF PATHOLOGY AND [address] [place] [address] GEN[facility] MEDICINE [address] [address] Basic metabolic panel (11/02/2018 3:10 AM CDT)Only the most recent of6 resultswithin the time period is included. [facility] Sodium 139 135 - 148 mEq/L [facility] Potassium 4.4 3.5 - 5.0 mEq/L [facility] Chloride 100 98 - 112 mEq/L [facility] CO2 27 24 - 31 mEq/L [facility] Anion gap 12@ANIO 7 - 15 mEq/L [facility] BUN 7 (L) 8 - 23 mg/dL [facility] Creatinine 0.60 (L) 0.70 - 1.20 mg/dL [facility] Glucose 98 65 - 99 mg/dL [facility] Calcium 9.4 8.8 - 10.2 mg/dL [facility] Specimen Plasma specimen Performing Organization Address City/[facility] Centercode Phone Number [facility] DEPARTMENT OF PATHOLOGY AND [address] [place] [address] GENOMIC MEDICINE [facility] [address] [place] [address] XR Abdomen 2 Vw Ap W Upright And/Or Decubitus (10/29/2018 9:07 AM CDT) Specimen Narrative Performed At EXAMINATION: XR ABDOMEN 2 VW AP W UPRIGHT AND OR DECUBITUS [facility] INDICATION: small bowel obstruction COMPARISON: October 28, 2018 IMPRESSION: Gastric band is in place. Mild diffuse gaseous distention of loops of small and large bowel, more suggestive of adynamic ileus than high-grade small bowel obstruction. A 15 mm calcific density overlies the right interpolar region, likely a calculus. There is also likely a small calculus involving the left kidney. Spinal fusion hardware is in place. [facility]-[id number] Procedure Note Hm Interface, Radiology Results Incoming - 10/29/2018 11:28 AM CDT EXAMINATION: XR ABDOMEN 2 VW AP W UPRIGHT AND OR DECUBITUS INDICATION: small bowel obstruction COMPARISON: October 28, 2018 IMPRESSION: Gastric band is in place. Mild diffuse gaseous distention of loops of small and large bowel, more suggestive of adynamic ileus than high-grade small bowel obstruction. A 15 mm calcific density overlies the right interpolar region, likely a calculus. There is also likely a small calculus involving the left kidney. Spinal fusion hardware is in place. [facility]-[id number] Performing Organization Address City/State/Zipcode Phone Number [facility] [address] [place] [address] XR Abdomen 1 Vw Portable (10/28/2018 9:05 AM CDT)Only the most recent of4 resultswithin the time period is included. Specimen Narrative Performed At EXAMINATION: XR ABDOMEN 1 VW PORTABLE [facility] INDICATION: SBO COMPARISON: October 24, 2018 IMPRESSION: There is gas within large and small bowel loops, arguing against high-grade small bowel obstruction. Gastric band is in place. Posterior fusion hardware extends from the midthoracic spine to the sacrum. Lumbar levoscoliosis. Scattered degenerative osseous changes. [facility]-[id number] Procedure Note Hm Interface, Radiology Results Incoming - 10/28/2018 9:17 AM CDT EXAMINATION: XR ABDOMEN 1 VW PORTABLE INDICATION: SBO COMPARISON: October 24, 2018 IMPRESSION: There is gas within large and small bowel loops, arguing against high-grade small bowel obstruction. Gastric band is in place. Posterior fusion hardware extends from the midthoracic spine to the sacrum. Lumbar levoscoliosis. Scattered degenerative osseous changes. [facility]-[id number] Performing Organization Address [facility]/Zipcode Phone Number [facility] [address] [place] [address] Zinc level, serum (10/23/2018 7:15 PM CDT) Zinc 64 60 - 120 ug/dL [facility] Comment: INTERPRETIVE INFORMATION: Zinc, Serum or Plasma Circulating zinc concentrations are dependent on albumin status and are depressed with malnutrition. Zinc may also be lowered with infection, inflammation, stress, oral contraceptives, and . Zinc may be elevated with zinc supplementation or fasting. Elevated zinc concentrations may interfere with copper absorption. Test developed and characteristics determined by [facility]. See Compliance Statement B: [employer]/CS Performed by [facility], [address] [place] [id number] [email or web address], Branden Holland MD - Lab. Director Specimen Blood Performing Organization Address [facility] Centercode Phone Number [facility] [address] [place] [address] [facility] [address] [place] [address] Vitamin C level, plasma (10/23/2018 7:15 PM CDT) Vitamin C, plasma 21 (L) 23 - 114 [facility] Comment: umol/L INTERPRETIVE DATA: Vitamin C (Ascorbic Acid), Plasma Vitamin C concentrations lower than 11 umol/L indicate deficiency. Concentrations between 11 and 23 umol/L are consistent with a moderate risk of deficiency due to inadequate tissue stores. Vitamin C concentration is reported as micromoles per liter (umol/L). To convert concentration to milligrams per deciliter (mg/dL), multiply the result by 0.0176. Test developed and characteristics determined by [facility]. See Compliance Statement B: [employer]/CS Performed by [facility], [address] [place] [address] [email or web address], Branden Holland MD - Lab. Director Specimen Plasma specimen Performing Organization Address City/[facility]/Zipcode Phone Number [facility] [address] [place] [address] [facility] [address] [place] [address] Vitamin B12 level (10/23/2018 7:15 PM CDT) Vitamin B12 [phone] [facility] Comment: pg/mL HOSPITAL Significant overlap exists between normal and deficiency states. However, most patients with deficiencies will have Serum B12 <200 pg/mL. Specimen Serum Performing Organization Address [facility] Centercode Phone Number [facility] DEPARTMENT OF PATHOLOGY AND [address] [place] [address] Hemoglobin & hematocrit (10/22/2018 5:30 AM CDT) HGB 11.4 (L) 14.0 - 18.0 g/dL [facility] HCT 34.8 (L) 41.0 - 51.0 % [facility] Specimen Blood Performing Organization Address [facility] Phone Number [facility] DEPARTMENT OF PATHOLOGY AND [address] [place] [address] Hemoglobin (10/22/2018 3:20 AM CDT)Only the most recent of4 resultswithin the time period is included. HGB 7.6 (L) 14.0 - 18.0 g/dL [facility] Specimen Blood Performing Organization Address City/[facility]/Zipcode Phone Number [facility] DEPARTMENT OF PATHOLOGY AND [address] [place], [place] [id number] XR Lumbar Spine 2 Or 3 Vw (10/20/2018 3:32 PM CDT) Specimen Narrative Performed At EXAMINATION: XR LUMBAR SPINE 2 OR 3 VW [facility] CLINICAL HISTORY: M41.50 Other secondary scoliosissite unspecified, M48.062 Spinal stenosislumbar region with neurogenic claudication, T9-S1 THORACOLUMBAR POSTERIOR FUSION COMPARISON:None IMPRESSION: Frontal and lateral views of lumbar spine were obtained for total of 2 views. Extensive fusion hardware is noted posteriorly from the lower thoracic spine down to the sacrum. There is rightward scoliosis of the mid lumbar spine. Hardware appears grossly in good alignment given the limitations of this exam due to the rotatory component of the scoliosis. Exam is also limited beam attenuation and osteoporosis with no definite acute compression deformity identified. [facility]-[id number] Procedure Note Interface, Radiology Results Incoming - 10/20/2018 3:40 PM CDT EXAMINATION: XR LUMBAR SPINE 2 OR 3 VW CLINICAL HISTORY: M41.50 Other secondary scoliosis site unspecified, M48.062 Spinal stenosis lumbar region with neurogenic claudication, T9-S1 THORACOLUMBAR POSTERIOR FUSION COMPARISON: None IMPRESSION: Frontal and lateral views of lumbar spine were obtained for total of 2 views. Extensive fusion hardware is noted posteriorly from the lower thoracic spine down to the sacrum. There is rightward scoliosis of the mid lumbar spine. Hardware appears grossly in good alignment given the limitations of this exam due to the rotatory component of the scoliosis. Exam is also limited beam attenuation and osteoporosis with no definite acute compression deformity identified. [facility]-[id number] Performing Organization Address City/State/Zipcode Phone Number [address] [address] Sodium level, syringe (10/20/2018 3:30 PM CDT)Only the most recent of4 resultswithin the time period is included. Sodium, syringe 132 (L) 135 - 148 mEq/L [facility] Specimen Blood Performing Organization Address City/State/Zipcode Phone Number [facility] DEPARTMENT OF PATHOLOGY AND [address] [place] [address] GENOMIC MEDICINE [address] [address] Potassium, syringe (10/20/2018 3:30 PM CDT)Only the most recent of4 resultswithin the time period is included. Potassium, syringe 4.1 3.5 - 5.0 mEq/L [facility] Specimen Blood Performing Organization Address City/[facility]/Zipcode Phone Number [facility] DEPARTMENT OF PATHOLOGY AND [address] [place] [phone] [place] [phone] Lactic acid, syringe (10/20/2018 3:30 PM CDT)Only the most recent of3 resultswithin the time period is included. Lactic acid, syringe 1.6 0.5 - 2.2 mmol/L [facility] Specimen Blood Performing Organization Address City/[facility] Centercode Phone Number [facility] DEPARTMENT OF PATHOLOGY AND [address] [place] [phone] Ionized calcium, arterial (10/20/2018 3:30 PM CDT)Only the most recent of4 resultswithin the time period is included. Ionized calcium, 1.03 (L) 1.11 - 1.32 [facility] arterial mmol/L HOSPITAL Specimen Blood Performing Organization Address City/[facility] Centercode Phone Number [facility] DEPARTMENT OF PATHOLOGY AND [address] [place] [phone] Hemoglobin, syringe (10/20/2018 3:30 PM CDT)Only the most recent of4 resultswithin the time period is included. Hemoglobin, syringe 11.9 (L) 14.0 - 18.0 g/dL [facility] Specimen Blood Performing Organization Address [facility] Centercode Phone Number [facility] DEPARTMENT OF PATHOLOGY AND [address] [place] [phone] Glucose level, syringe (10/20/2018 3:30 PM CDT)Only the most recent of4 resultswithin the time period is included. Glucose, syringe 119 (H) 65 - 99 mg/dL [facility] Specimen Blood Performing Organization Address City/[facility] Centercode Phone Number [facility] DEPARTMENT OF PATHOLOGY AND [address] [place] [phone] [place] [phone] Arterial blood gas, corrected (10/20/2018 3:30 PM CDT)Only the most recent of4 resultswithin the time period is included. pH, arterial 7.42 7.35 - 7.45 [facility] pCO2, arterial 38 35 - 45 mmHg [facility] pO2, arterial 236 (H) 80 - 90 mmHg [facility] Temperature, Celsius 37.1 Degrees C [facility] O2 saturation, 100 95 - 100 % [facility] arterial HOSPITAL pH, arterial 7.42 [facility] HOSPITAL pCO2, arterial [address] [facility] HOSPITAL pO2, arterial [address] [facility] Base excess, arterial 0 -2 - 2 mEq/L [facility] Specimen Blood Performing Organization Address City/[facility] Centercode Phone Number [facility] DEPARTMENT OF PATHOLOGY AND [address] [place] [phone] [place] [phone] Prothrombin time with INR (10/20/2018 3:30 PM CDT)Only the most recent of3 resultswithin the time period is included. Prothrombin time 14.8 (H) 11.5 - 14.5 [facility] INR 1.2 [place] Comment: [facility] International Normalized Ratio (INR) is a therapeutic HOSPITAL monitoring tool for patients who are stable on oral anticoagulant therapy. An INR of 2.0-3.0 is suggested for deep vein thrombosis/pulmonary embolism. Specimen Blood Performing Organization Address City/[facility] Centercola Phone Number [facility] DEPARTMENT OF PATHOLOGY AND [address] [place] [phone] [address] Fibrinogen (10/20/2018 3:30 PM CDT) Fibrinogen 254 200 - 450 mg/dL [facility] Specimen Blood Performing Organization Address City/[facility]/Zipcode Phone Number [facility] DEPARTMENT OF PATHOLOGY AND [address] [place] [phone] [address] Magnesium level (10/20/2018 3:30 PM CDT)Only the most recent of4 resultswithin the time period is included. Magnesium 1.4 (L) 1.6 - 2.4 mg/dL [facility] Specimen Plasma specimen Performing Organization Address City/[facility]/Zipcode Phone Number [facility] DEPARTMENT OF PATHOLOGY AND [address] [place] [phone] [address] Intraoperative monitoring (10/20/2018 2:58 PM CDT) Narrative Performed At OR [place] > I Hour (10/20/2018 2:50 PM CDT)Only the most recent of2 resultswithin the time period is included. Specimen Narrative Performed At EXAMINATION:OR [place]> 1 HOUR [facility] C-arm fluoroscopy was requested in OR. LOCATION: DUNN3 OR RM 19 PROCEDURE: O-ARM FOR T9-S1 THORACOLUMBAR POSTERIOR FUSION START: 0805 END: 1450 FL TIME: 13.86sec DOSE (mGy): 107.20 TECH: GM/DR SCANS: 3 IMPRESSION: Separate operative report will be issued by the physician performing the procedure. [id number] Procedure Note Interface, Radiology Results Incoming - 10/20/2018 10:12 PM CDT EXAMINATION: OR [place] > 1 HOUR C-arm fluoroscopy was requested in OR. LOCATION: DUNN3 OR RM 19 PROCEDURE: O-ARM FOR T9-S1 THORACOLUMBAR POSTERIOR FUSION START: 0805 END: 1450 [place] TIME: 13.86sec DOSE (mGy): 107.20 TECH: GM/DR SCANS: 3 IMPRESSION: Separate operative report will be issued by the physician performing the procedure. [id number] Performing Organization Address City/[facility]/Zipcode Phone Number [address] [address] Partial thromboplastin time, activated (10/20/2018 1:40 AM CDT)Only the most recent of2 resultswithin the time period is included. PTT 45.8 (H) 23.0 - 36.0 [facility] Comment: [facility] PTT therapeutic range for unfractionated heparin is 61.0-112.0 seconds which corresponds to Anti-Xa 0.3-0.7 U/ml. Specimen Blood Performing Organization Address City/State/Zipcode Phone Number [facility] DEPARTMENT OF PATHOLOGY AND [address] [place] [phone] [address] Type and screen (10/20/2018 1:40 AM CDT)Only the most recent of2 resultswithin the time period is included. ABO grouping O [facility] Rh type NEG [facility] Antibody screen (gel) NEG [facility] Specimen Blood Performing Organization Address City/State/Zipcode Phone Number [facility] DEPARTMENT OF PATHOLOGY AND [address] [place] [address] GENOMIC MEDICINE [facility] [address] [place] [address] Intraoperative monitoring (10/17/2018 2:47 PM CDT) Narrative Performed At INTRAOPERATIVE NEURO MONITORING Patient Name: Steven Hope Date of : 1960 Gender: male Surgical Procedure:L5-S1 ALIF; L2-L5 XLIF OR: (CORI) Room #: (19) Tech #1: (JN) Start Time: (09:50) End Time: (12:13) Total Time (in hours): (3) Date of Service: 10/17/18 Physician IOM Time: 3 Hours Procedure(s) performed During IOM: 83092, 14970, 79254 ICD10: M4716 Stimulation Parameters Ulnar nerves individually stimulated at the wrist. Rate 4.7 Hz, Intensity 20-60 mA, Duration 0.3 ms, Filters 30-500 Hz, Notch Off Posterior Tibial nerves individually stimulated at the ankle., Rate 4.7 Hz, Intensity 30 - 80 mA, Duration 0.3 ms, Filters 30-500 Hz, Notch Off Motor strip stimulated anterior to C3 and C4 with alternating polarities, Intensity 500 V Train Rate 4-5 CHLOE 2-3 ms, Filter 30-2KHz Notch off Technical Summary Intraoperative neurophysiological monitoring was performed using a combination of upper and lower extremity somatosensory evoked potentials (SEP), transcranial electrical motor potentials (TcMEP) and running electromyography (EMG) of the innervated muscle groups. A real time connection was established by the monitoring technologist with the examining neurologist throughout the operative procedure. Lower extremity somatosensory evoked potentials were recorded peripherally at the popliteal fossa and centrally at the cervical and cortical levels following posterior tibial nerve stimulation at the ankle. Upper extremity somatosensory evoked potentials were recorded centrally at the cervical and cortical levels following ulnar nerve stimulation at the wrist. There were no significant surgically related changes in amplitude or latency to the cervical and/or cortical SEP responses throughout the surgical procedure. TcMEPs were recorded peripherally from the upper and lower extremities following alternating polarity motor strip stimulation. Post-induction TcMEP responses to motor cortex stimulation were clear and reproducible bilaterally. Bilateral VM MEPs were lost during the procedure. At closing responses were judged to be essentially unchanged from those of post positioning baselines. Free running EMG of the innervated muscle groups was monitored continuously throughout the operative procedure with no sustained neurotonic discharges noted. Conclusion All values were reported to the surgeon in real time. Surgical pathology request (10/17/2018 1:27 PM CDT) [facility] DEPARTMENT OF PATHOLOGY AND GENOMIC MEDICINE Surgical pathology See link below [facility] DEPARTMENT OF report for PDF Lab PATHOLOGY AND Report GENOMIC MEDICINE Result status This is Final [facility] DEPARTMENT OF Report for PATHOLOGY AND [id number] GENOMIC MEDICINE Specimen Performing Organization Address City/[facility]ercode Phone Number [facility] DEPARTMENT OF [facility]OLOGY AND [address] [place] [phone] [place] [address] Gram stain (10/02/2018 10:23 AM CDT) Pathologist [facility] Gram stain result Rare WBC's [facility] No organisms seen HOSPITAL Comment: Specimen Information Specimen Source: Urine Specimen Site: Clean catch Specimen Urine Performing Organization Address City/[facility] Centercode Phone Number [facility] DEPARTMENT OF PATHOLOGY AND [address] [place] [phone] Urine culture (10/02/2018 10:23 AM CDT) Pathologist [facility] Urine culture Mixed dillon <=10-3 col/cc [facility] isolate Comment: HOSPITAL Specimen Information Specimen Source: Urine Specimen Site: Clean catch Specimen Urine Performing Organization Address City/[facility]ercode Phone Number [facility] DEPARTMENT OF PATHOLOGY AND [address] [place] [phone] [place] [phone] XR Chest 2 Vw (10/02/2018 9:16 AM CDT) Specimen Narrative Performed At XR CHEST 2 VW [facility] CLINICAL INDICATION:Z01.818 Encounter for other preprocedural examination, preop COMPARISON:None available IMPRESSION: Heart and mediastinum are within normal limits. Joy markings are marginally increased without significant edema or infiltrate. There is no pneumothorax or effusion. There is an indeterminate well-circumscribed 9 mm nodular density overlying the left apex about the first second anterior rib levels. This is not identified on lateral view uncertain if this is a parenchymal nodule or related to skin either anteriorly or posteriorly over the upper chest. Correlate with physical exam and consider follow-up CT chest for further evaluation if there are no remote exams to assess stability. There are mild degenerative changes in the thoracal lumbar spine with angular kyphosis about the thoracolumbar junction. *Indeterminate nodule left apex uncertain if this is lung parenchymal versus artifact from a skin lesion. Correlate with physical exam and consider CT chestin follow-up in the absence of prior exams and stability. *[facility]-[id number] Procedure Note Interface, Radiology Results Incoming - 10/02/2018 9:34 AM CDT XR CHEST 2 VW CLINICAL INDICATION: Z01.818 Encounter for other preprocedural examination, preop COMPARISON: None available IMPRESSION: Heart and mediastinum are within normal limits. Joy markings are marginally increased without significant edema or infiltrate. There is no pneumothorax or effusion. There is an indeterminate well-circumscribed 9 mm nodular density overlying the left apex about the first second anterior rib levels. This is not identified on lateral view uncertain if this is a parenchymal nodule or related to skin either anteriorly or posteriorly over the upper chest. Correlate with physical exam and consider follow-up CT chest for further evaluation if there are no remote exams to assess stability. There are mild degenerative changes in the thoracal lumbar spine with angular kyphosis about the thoracolumbar junction. * Indeterminate nodule left apex uncertain if this is lung parenchymal versus artifact from a skin lesion. Correlate with physical exam and consider CT chest in follow-up in the absence of prior exams and stability. *[facility]-[id number] Performing Organization Address City/State/Zipcode Phone Number [facility] [address] [place] [address] ECG 12 lead (10/02/2018 8:45 AM CDT) Ventricular rate 72 [facility] Atrial rate 72 [facility] WV interval 146 [facility] QRSD interval 98 [facility] QT interval 388 [facility] QTC interval 424 [facility] P axis 1 68 [facility] QRS axis 1 72 [facility] T wave axis 62 [facility] EKG impression Normal sinus [facility] M[facility] rhythm-Possible Left atrial enlargement-Borderline ECG-No previous ECGs available-Electronicall y Signed By Danielle Mccormack MD ([id number]) on 10/02/2018 8:49:12 PM Specimen Narrative Performed At Performing Organization Address City/State/Zipcode Phone Number [facility] MUSE [address] [place] [address] Urinalysis screen and microscopy, with reflex to culture (10/02/2018 8:34 AM CDT) Specimen site Clean catch [facility] Color, UA Straw [facility] Appearance, UA Clear [facility] Specific gravity, 1.009 1.001 - 1.035 [facility] pH, UA 7.0 5.0 - 8.5 [facility] Protein, UA Negative Negative [facility] Glucose, UA Negative Negative [facility] Ketones, UA Negative Negative [facility] Bilirubin, UA Negative Negative [facility] Blood, UA Small (A) Negative [facility] Nitrite, UA Negative Negative [facility] Urobilinogen, UA <2.0 <2.0 [facility] Leukocyte esterase, Small (A) Negative [facility] WBC, UA 7 (H) 0 - 1 /HPF [facility] RBC, UA 2 0 - 5 /HPF [facility] Bacteria, UA Few None seen [facility] Yeast, UA None seen [facility] Yeast with None seen [facility] pseudohyphae, HOSPITAL Specimen Urine Performing Organization Address City/State/Zipcode Phone Number [facility] DEPARTMENT OF PATHOLOGY AND [address] [place] [address] GENOMIC MEDICINE [facility] [address] [place] [address] Vitamin D 25 hydroxy level (10/02/2018 8:33 AM CDT) Vitamin D, 137.5 30.0 - 150.0 [facility] 25-hydroxy Comment: ng/mL HOSPITAL This assay reports the sum of 25-hydroxy vitamin D3 and 25-hydroxy vitamin D2. Reference range: 0-17 years: Deficiency: less than 20ng/mL Optimum level: greater than or equal to 20 ng/mL. 18 years and older: Deficiency: less than 20ng/mL Insufficiency: 20-29 ng/mL Optimum Level: 30-80 ng/mL The assay reportable range is 3.4155.9 ng/mL. Levels higher than 150 ng/mL may be associated with toxicity. If toxicity is clinically suspected and the reported result is >155.9 ng/mL,contact lab for alternative methods to obtain a definitivelevel. If separate quantitation of 25-hydroxy vitamin D3 and 25-hydroxy vitamin D2 is needed, please contact lab for alternative methods. Specimen Blood Performing Organization Address City/[facility]ercode Phone Number [facility] DEPARTMENT OF PATHOLOGY AND [address] [place] [phone] [place] [phone] CBC hemogram (10/02/2018 8:33 AM CDT) WBC 9.41 4.50 - 11.00 k/uL [facility] RBC 5.20 4.40 - 6.00 m/uL [facility] HGB 15.8 14.0 - 18.0 g/dL [facility] HCT 48.6 41.0 - 51.0 % [facility] MCV 93.5 82.0 - 100.0 fL [facility] MCH 30.4 27.0 - 34.0 pg [facility] MCHC 32.5 31.0 - 37.0 g/dL [facility] RDW - SD 45.8 37.0 - 55.0 fL [facility] MPV 9.5 8.8 - 13.2 fL [facility] Platelet count 319 150 - 400 k/uL [facility] Nucleated RBC 0.00 /100 WBC [facility] Specimen Blood Performing Organization Address [facility] Centercode Phone Number [facility] DEPARTMENT OF PATHOLOGY AND [address] [place] [phone] [address] Phosphorus level (10/02/2018 8:33 AM CDT) Phosphorus 2.0 (L) 2.4 - 4.5 mg/dL [facility] Specimen Plasma specimen Performing Organization Address City/[facility]/Zipcode Phone Number [facility] DEPARTMENT OF PATHOLOGY AND [address] [place] [phone] [address] Parathyroid hormone (10/02/2018 8:33 AM CDT) PTH 38 15 - 65 pg/mL [facility] Specimen Blood Performing Organization Address City/State/Zipcode Phone Number [facility] DEPARTMENT OF PATHOLOGY AND [address] [place] [phone] [place] [phone] Hepatic function panel (10/02/2018 8:33 AM CDT) Albumin 4.1 3.5 - 5.0 g/dL [facility] Total bilirubin 0.3 0.0 - 1.2 [facility] mg/dL [facility] Bilirubin direct <0.2 0.0 - 0.3 [facility] mg/dL [facility] Alkaline phosphatase 70 40 - 129 U/L [facility] Protein 7.4 6.3 - 8.3 g/dL [facility] Comment: HOSPITAL 4.6-7.0 g/dL 1 week 4.4-7.6 g/dL 7 months-1year5.1-7.3 g/dL 1-2 years5.6-7.5 g/dL >3 years6.0-8.0 g/dL 18-150 6.3-8.3 g/dL ALT 14 5 - 50 U/L [facility] AST 18 10 - 50 U/L [facility] Specimen Plasma specimen Performing Organization Address City/[facility]ode Phone Number [facility] DEPARTMENT OF PATHOLOGY AND [address] [place] [phone] [place] [phone] XR Spine External Study (08/21/2018 1:23 PM RADIOSONDE OPERATOR)Only the most recent of3 resultswithin the time period is included. Specimen Narrative Performed At This exam was not acquired at a [facility]ism facility and has not been [facility] interpreted by a [facility]ism Provider.The exam was imported into our imaging system for comparisons purposes. Performing Organization Address City/[facility]/Zipcode Phone Number [facility] [address] [place] [address] Bone Density Peripheral (08/21/2018 11:51 AM RADIOSONDE OPERATOR) Specimen Narrative Performed At EXAMINATION:BONE DENSITY PERIPHERAL [facility] CLINICAL HISTORY:M85.89 Other specified disorders of bone density and structuremultiple sites, Osteoporosis COMPARISON:None. The results of this study expressed as bone mineral density (BMD) were as follows: Right Forearm (Radius 33%): BMD: 1.061 g/cm2 T-Score: 0.7 WHO Classification:Normal IMPRESSION: Bone mineral density measurements as described.Please see report. A copy of this scan including a report detailing these results will follow. Note: The world health organization (WHO) has classified the patient's T-score as follows: Above (-1) as normal (-1) to (-2.5) as low (osteopenia) Below (-2.5) as abnormally low (osteoporosis, increased fracture risk) *[facility]-[id number] Procedure Note Interface, Radiology Results Incoming - 08/21/2018 12:25 PM RADIOSONDE OPERATOR EXAMINATION: BONE DENSITY PERIPHERAL CLINICAL HISTORY: M85.89 Other specified disorders of bone density and structure multiple sites, Osteoporosis COMPARISON: None. The results of this study expressed as bone mineral density (BMD) were as follows: Right Forearm (Radius 33%): BMD: 1.061 g/cm2 T-Score: 0.7 WHO Classification: Normal IMPRESSION: Bone mineral density measurements as described. Please see report. A copy of this scan including a report detailing these results will follow. Note: The world health organization (WHO) has classified the patient's T-score as follows: Above (-1) as normal (-1) to (-2.5) as low (osteopenia) Below (-2.5) as abnormally low (osteoporosis, increased fracture risk) *[facility]-[id number] Performing Organization Address City/State/Zipcode Phone Number [facility] [address] [place] [address] Bone Density (08/21/2018 11:50 AM RADIOSONDE OPERATOR) Specimen Narrative Performed At EXAMINATION:BONE DENSITY [facility] CLINICAL HISTORY:M85.89 Other specified disorders of bone density and structuremultiple sites, Osteoporosis COMPARISON:None. The results of this study expressed as bone mineral density (BMD) were as follows: AP spine (L1-L2) BMD: 1.515 g/cm2 T-Score: 2.6 WHO Classification:Normal There is advanced levoscoliosis of the spine which may artifactually elevate apparent bone mineral density. TBS L1-L4: 1.607, >1.350 normal, 1.200-1.350 partially degraded microarchitecture, <1.200 degraded microarchitecture The 10 year probability of fracture, adjusted for FRAX: Major Osteoporotic Fracture: 3.0% Hip Fracture:0.1% Dual Femur (Total Mean): BMD: 0.971 g/cm2 T-Score:- 0.9 WHO Classification:Normal IMPRESSION: Bone mineral density results as described.Normal BMD as described. A copy of this scan including a report detailing these results will follow. Note: The world health organization (WHO) has classified the patient's T-score as follows: Above (-1) as normal (-1) to (-2.5) as low (osteopenia) Below (-2.5) as abnormally low (osteoporosis, increased fracture risk) Dual femur FRAX: Risk factors: None. 10 year probability of fracture: 1.Major osteoporotic: 4.6% 2.Hip: 0.3% 3.Based on dual femur right neck BMD *[facility]-[id number] Procedure Note [facility], Radiology Results Incoming - 08/21/2018 12:24 PM RADIOSONDE OPERATOR EXAMINATION: BONE DENSITY CLINICAL HISTORY: M85.89 Other specified disorders of bone density and structure multiple sites, Osteoporosis COMPARISON: None. The results of this study expressed as bone mineral density (BMD) were as follows: AP spine (L1-L2) BMD: 1.515 g/cm2 T-Score: 2.6 WHO Classification: Normal There is advanced levoscoliosis of the spine which may artifactually elevate apparent bone mineral density. TBS L1-L4: 1.607, >1.350 normal, 1.200-1.350 partially degraded microarchitecture, <1.200 degraded microarchitecture The 10 year probability of fracture, adjusted for FRAX: Major Osteoporotic Fracture: 3.0% Hip Fracture: 0.1% Dual Femur (Total Mean): BMD: 0.971 g/cm2 T-Score: - 0.9 WHO Classification: Normal IMPRESSION: Bone mineral density results as described. Normal BMD as described. A copy of this scan including a report detailing these results will follow. Note: The world health organization (WHO) has classified the patient's T-score as follows: Above (-1) as normal (-1) to (-2.5) as low (osteopenia) Below (-2.5) as abnormally low (osteoporosis, increased fracture risk) Dual femur FRAX: Risk factors: None. 10 year probability of fracture: 1. Major osteoporotic: 4.6% 2. Hip: 0.3% 3. Based on dual femur right neck BMD *[facility]-[id number] Performing Organization Address [facility] Phone Number [employer] [address] [place] [address] CT Spine External Study (07/21/2018 1:39 PM RADIOSONDE OPERATOR) Specimen Narrative Performed At This exam was not acquired at a Hinduism facility and has not been [facility] interpreted by a Hinduism Provider.The exam was imported into our imaging system for comparisons purposes. Performing Organization Address [facility] Phone Number [employer] [address] [place] [address] after 03/12/2018 (Home) [place] [address] Advance Directives For more information, please contact: [phone] Type Date Recorded Patient Sales And Support Center Agent Explanation Advance Directives, Living Will and Medical Power of Complaint Clerk Advance Directives, 11/09/2018 4:43 AM ADVANCE DIRECTIVE Living Will and Medical Power of Complaint Clerk Advance Directives, 11/09/2018 4:43 AM MEDICAL POWER OF Living Will and SQL DATABASE ADMINISTRATOR Medical Power of Complaint Clerk
[2019-03-13] MEDS ORDERED: LEVALBUTEROL 1.25 MG/3 ML NEB ONE (14:05)
--- NOTE | 2019-03-13 14:29 | RAD REPORT ---
EXAM DESCRIPTION: RAD - Chest Single View - 03/13/2019 2:19 pm CLINICAL HISTORY: possible aspiration Chest pain. COMPARISON: Abdomen 1 View (KUB) dated 03/07/2019; Chest Pa And Lat (2 Views) dated 03/07/2019; Abdome n 1 View (KUB) dated 03/02/2019 FINDINGS: Portable technique limits examination quality. Bilateral pulmonary opacities are noted likely representing pulmonary edema superimposed on emphysema tous changes. The heart is normal in size. Hardware is present in the thoracolumbar spine. IMPRESSION: Mild pulmonary edema suspected.
--- NOTE | 2019-03-13 15:00 | EDPHYS ---
Physician Documentation [facility] Name: Steven Hope Age: 58 yrs Sex: Male : 1960 Arrival Date: 03/13/2019 Time: 14:01 Bed 16 Private MD: ED Physician Bj Culver HPI: 03/13 14:04 This 58 yrs old Male presents to ER via Unassigned with complaints of rn possible aspiration. 14:04 Sent from surgery center for possible aspiration during lithotripsy, given propofol, rn vomited, and anesthesia noted some wheezing, oxygen was mid 80s, 95% on 3L, is smoker. Patient reports feels fine, "ready to go to the gym". Patient states because of lap band has had similar event happen before where aspiration was considered and ended up ok. . Onset: The symptoms/episode began/occurred just prior to arrival. Severity of symptoms: At their worst the symptoms were mild in the emergency department the symptoms are unchanged. The patient has experienced a previous episode. The patient has been recently seen by a physician:. Historical: - Allergies: 14:10 No Known Allergies; rb1 - PMHx: 14:10 Back pain; Kidney stones; rb1 - PSHx: 14:10 Kidney stone removal; rb1 - Immunization history:: Adult Immunizations up to date. - Family history:: not pertinent. - Social history:: Smoking status: . - Ebola Screening: : Patient negative for fever greater than or equal to 101.5 degrees Fahrenheit, and additional compatible Ebola Virus Disease symptoms. - Hospitalizations: : No recent hospitalization is reported. ROS: 14:04 Constitutional: Negative for fever, chills, and weight loss, Eyes: Negative for injury, rn pain, redness, and discharge, Neck: Negative for injury, pain, and swelling, Cardiovascular: Negative for chest pain, palpitations, and edema, Respiratory: Negative for pleuritic chest pain, Abdomen/GI: Negative for abdominal pain, diarrhea, and constipation, MS/Extremity: Negative for injury and deformity, Skin: Negative for injury, rash, and discoloration, Neuro: Negative for headache, weakness, numbness, tingling, and seizure. Exam: 14:04 Constitutional: This is a well developed, well nourished patient who is awake, alert, rn and in no acute distress. Head/Face: Normocephalic, atraumatic. Eyes: Pupils equal round and reactive to light, extra-ocular motions intact. Lids and lashes normal. Conjunctiva and sclera are non-icteric and not injected. Cornea within normal limits. Periorbital areas with no swelling, redness, or edema. ENT: MMM Cardiovascular: Regular rate and rhythm. No pulse deficits. Respiratory: Lungs have equal breath sounds bilaterally, clear to auscultation. No increased work of breathing, no retractions or nasal flaring. Abdomen/GI: soft, non-tender MS/ Extremity: Pulses equal, no cyanosis. Neurovascular intact. Full, normal range of motion. Equal circumference. Neuro: Awake and alert, GCS 15, oriented to person, place, time, and situation. Cranial nerves II-XII grossly intact. Motor strength 5/5 in all extremities. Sensory grossly intact. Cerebellar exam normal. Vital Signs: 14:08 BP 120 / 72; Pulse 80; Resp 18; Temp 98.0(O); Pulse Ox 93% on R/A; Weight 97.52 kg (R); tw2 Height 5 ft. 6 in. (167.64 cm); Pain 0/10; 15:00 BP 132 / 68; Pulse 88; Resp 17; Temp 98.2(O); Pulse Ox 97% on R/A; Pain 0/10; rb1 14:08 Body Mass Index 34.70 (97.52 kg, 167.64 cm) tw2 14:08 pt placed on o2 via nc at 2l, will continue to monitor tw2 MDM: 14:01 Patient medically screened. rn 14:54 Differential Diagnosis pneumonitis, aspiration, pneumonia. Data reviewed: vital signs, rn nurses notes, radiologic studies, plain films, and as a result, I will continue to observe the patient. Counseling: I had a detailed discussion with the patient and/or guardian regarding: the historical points, exam findings, and any diagnostic results supporting the discharge/admit diagnosis, radiology results. Response to treatment: the patient's condition has returned to base line, the patient is now symptom free. ED course: Pt states feels fine, doesn't want blood tests, denies sob or cough, xray shows possible interstitial vs edema findings. Patient wants to go home. Explained to him aspiration starts as pneumonitis then possible pneumonia, told him preference is to get tests, observe in hospital, patient wants to go home. States understands risks and wants to go. States will return if worsens. Taken off oxygen and O2 95%, is smoker, well within his range. Will prescribe abx and inhaler prn. . 03/13 14:01 Order name: JORGE Chest (1 view); Complete Time: 14:43 rn Administered Medications: 14:09 Drug: Xopenex (3) 1.25 mg Route: Inhalation; rb1 Disposition: 03/13/19 14:59 Discharged to Home. Impression: Possible aspiration during induction of anesthesia. - Condition is Stable. - Discharge Instructions: Aspiration Pneumonia. - Prescriptions for Clindamycin HCl 300 mg Oral Capsule - take 1 capsule by ORAL route every 6 hours for 10 days; 40 capsule. Levaquin 500 mg Oral Tablet - take 1 tablet by ORAL route once daily for 10 days; 10 tablet. Albuterol Sulfate 90 mcg/actuation - inhale 1-2 puff by INHALATION route every 4-6 hours; 1 Inhaler. - Medication Reconciliation Form, Thank You Letter, Antibiotic Education, Prescription Opioid Use form. - Follow up: Private Physician; When: As needed; Reason: Recheck today's complaints, Re-evaluation by your physician. - Problem is new. - Symptoms have improved. Signatures: Dispatcher [employer] EDNE Bj Culver MD MD rn Barber, Rebecca, RN RN rb1 Corrections: (The following items were deleted from the chart) 15:43 14:02 CBC+H.LAB.BRZ ordered. EDNE EDMS 15:43 14:02 BASIC METABOLIC PANEL+C.LAB.BRZ ordered. EDNE EDMS 15:43 14:02 BLOOD CULTURE*+BA.LAB.BRZ ordered. EDNE EDMS 15:43 14:02 Procalcitonin+C.LAB.BRZ ordered. EDNE EDMS 15:48 14:59 03/13/2019 14:59 Discharged to Home. Impression: Possible aspiration during rb1 induction of anesthesia. Condition is Stable. Forms are Medication Reconciliation Form, Thank You Letter, Antibiotic Education, Prescription Opioid Use. Follow up: Private Physician; When: As needed; Reason: Recheck today's complaints, Re-evaluation by your physician. Problem is new. Symptoms have improved. rn
--- NOTE | 2019-03-13 15:00 | ER ---
Nurse's Notes [facility] Name: Steven Hope Age: 58 yrs Sex: Male : 1960 Arrival Date: 03/13/2019 Time: 14:01 Bed 16 Private MD: Diagnosis: Possible aspiration during induction of anesthesia Presentation: 03/13 14:04 Presenting complaint: EMS states: pt was at [facility] having kidney tw2 stones removed when he aspirated, he was 90's on RA, when he is on 2L he is fine, they say there able to complete the sx, pt denies sob or pain. Transition of care: patient was not received from another setting of care. Onset of symptoms was March 13, 2019. Risk Assessment: Do you want to hurt yourself or someone else? Patient reports no desire to harm self or others. Initial Sepsis Screen: Does the patient meet any 2 criteria? No. Patient's initial sepsis screen is negative. Does the patient have a suspected source of infection? No. Patient's initial sepsis screen is negative. Care prior to arrival: IV initiated. 22 GA, in the right wrist, Oxygen administered. via nasal cannula. 14:04 Method Of Arrival: EMS: [facility] tw2 14:04 Acuity: OTILIA 2 tw2 Triage Assessment: 14:09 General: Appears in no apparent distress. Behavior is cooperative, appropriate for age. tw2 Pain: Denies pain. Historical: - Allergies: 14:10 No Known Allergies; rb1 - PMHx: 14:10 Back pain; Kidney stones; rb1 - PSHx: 14:10 Kidney stone removal; rb1 - Immunization history:: Adult Immunizations up to date. - Family history:: not pertinent. - Social history:: Smoking status: . - Ebola Screening: : Patient negative for fever greater than or equal to 101.5 degrees Fahrenheit, and additional compatible Ebola Virus Disease symptoms. - Hospitalizations: : No recent hospitalization is reported. Screenin:10 Abuse screen: Denies threats or abuse. Nutritional screening: No deficits noted. rb1 Tuberculosis screening: No symptoms or risk factors identified. Fall Risk None identified. Assessment: 14:10 General: Appears in no apparent distress. comfortable, Behavior is calm, cooperative. rb1 General: Pt. reports that [facility] thinks he may have aspirated during his procedure.. Pain: Denies pain. Neuro: Level of Consciousness is awake, alert, obeys commands, Oriented to person, place, time, situation. Cardiovascular: Capillary refill < 3 seconds is brisk in bilateral fingers. Respiratory: Airway is patent Respiratory effort is even, unlabored, Respiratory pattern is regular, symmetrical, Denies shortness of breath. GI: No signs and/or symptoms were reported involving the gastrointestinal system. : No signs and/or symptoms were reported regarding the genitourinary system. Derm: Skin is pink, warm \T\ dry. Musculoskeletal: Range of motion: intact in all extremities. 15:00 Reassessment: Patient appears in no apparent distress at this time. No changes from rb1 previously documented assessment. 15:08 Reassessment: Pt. reports that he feels good and would like to speak with the doctor. rb1 Pt. desires to go home. Notified provider. 15:14 Reassessment: Pt. O2 sat remains 96% and above on RA. rb1 Vital Signs: 14:08 BP 120 / 72; Pulse 80; Resp 18; Temp 98.0(O); Pulse Ox 93% on R/A; Weight 97.52 kg (R); tw2 Height 5 ft. 6 in. (167.64 cm); Pain 0/10; 15:00 BP 132 / 68; Pulse 88; Resp 17; Temp 98.2(O); Pulse Ox 97% on R/A; Pain 0/10; rb1 14:08 Body Mass Index 34.70 (97.52 kg, 167.64 cm) tw2 14:08 pt placed on o2 via nc at 2l, will continue to monitor tw2 ED Course: 14:01 Patient arrived in ED. rn 14:01 Bj Culver MD is Attending Physician. rn 14:03 Vero Taylor, THONG is Primary Nurse. rb1 14:08 Triage completed. tw2 14:09 Arm band placed on. tw2 14:10 Patient has correct armband on for positive identification. Bed in low position. Call rb1 light in reach. Side rails up X2. environmental monitoring specialist on. Pulse ox on. NIBP on. Warm blanket given. 14:10 Maintain EMS IV. Dressing intact. Good blood return noted. Site clean \T\ dry. Gauge \T\ rb 1 site: 20 G right hand. 14:18 X-ray completed. Portable x-ray completed in exam room. Patient tolerated procedure ls3 well. 14:18 XRAY Chest (1 view) In Process Unspecified. EDMS 15:28 No provider procedures requiring assistance completed. IV discontinued, intact, rb1 bleeding controlled, No redness/swelling at site. Pressure dressing applied. Administered Medications: 14:09 Drug: Xopenex (3) 1.25 mg Route: Inhalation; rb1 Outcome: 14:59 Discharge ordered by MD. rn 15:28 Patient left the ED. rb1 15:28 Discharged to home ambulatory, with significant other. rb1 15:28 Condition: stable 15:28 Discharge instructions given to patient, Instructed on discharge instructions, follow up and referral plans. medication usage, Demonstrated understanding of instructions, follow-up care, medications, Prescriptions given X 3. Signatures: Dispatcher [employer] EDMS Bj Culver MD MD rn Barber, Rebecca RN RN rb1 Alana Freitas RN RN tw2 Gadiel Santana ls3 Corrections: (The following items were deleted from the chart) 16:08 15:48 Patient left the ED. rb1 rb1
== END 2019-03-13 15:48 | disposition home or self-care (01) ==
LOC: ER 13:58
DX: Z04.89 Encounter for examination and observation for other specified reasons (principal); Z98.890 Other specified postprocedural states; Z87.442 Personal history of urinary calculi
CPT/HCPCS: 71045; 99285

== ENCOUNTER 2020-04-24 09:43 | Inpatient (IN) | payer BC ==
[2020-04-24] MEDS ORDERED: VANCOMYCIN 1.5 GM in NA CHLORIDE 0.9% 500 ML IVPB ONE (11:30)
[2020-04-24] MEDS ORDERED: CHLORPROMAZINE 25 MG TAB PO ONE (11:35)
--- NOTE | 2020-04-24 12:12 | EDPHYS ---
Physician Documentation [facility] Name: Steven Hope Age: 59 yrs Sex: Male : 1960 Arrival Date: 04/24/2020 Time: 09:46 Bed 4 Private MD: Hema De La Rosa H ED Physician Willem Pratt HPI: 04/25 09:27 This 59 yrs old Male presents to ER via Wheelchair with complaints of Leg kdr Pain. 09:27 The patient presents with pain, that is acute, swelling, tenderness. The complaints kdr affect the lateral aspect of left calf, medial aspect of left calf and left tesfaye. Context: The problem was sustained at home, resulted from an unknown cause, the patient can fully bear weight, the patient is able to ambulate, Problem is a result from a previous injury: No. Onset: The symptoms/episode began/occurred gradually, 3 week(s) ago. Modifying factors: The symptoms are alleviated by nothing. the symptoms are aggravated by movement. Associated signs and symptoms: The patient has no apparent associated signs or symptoms. Treatment prior to arrival includes: prescription medications, The patient was given Amoxicillin for a few days. Severity of symptoms: At their worst the symptoms were mild, moderate, in the emergency department the symptoms are unchanged. The patient has not experienced similar symptoms in the past. The patient has been recently seen by a physician: the patient's primary care provider. Historical: - Allergies: 04/24 09:58 No Known Allergies; ll1 - PMHx: 09:58 Back pain; Kidney stones; ll1 - PSHx: 09:58 Kidney stone removal; major back surgery; ll1 - Immunization history:: Flu vaccine is up to date. - Social history:: Smoking status: Patient reports the use of cigarette tobacco products, smokes one pack cigarettes per day. ROS: 04/25 09:27 Constitutional: Negative for fever, chills, and weight loss, Eyes: Negative for injury, kdr pain, redness, and discharge, ENT: Negative for injury, pain, and discharge, Neck: Negative for injury, pain, and swelling, Cardiovascular: Negative for chest pain, palpitations, and edema, Respiratory: Negative for shortness of breath, cough, wheezing, and pleuritic chest pain, Abdomen/GI: Negative for abdominal pain, nausea, vomiting, diarrhea, and constipation, Back: Negative for injury and pain, : Negative for injury, bleeding, discharge, and swelling, Neuro: Negative for headache, weakness, numbness, tingling, and seizure activity. Psych: Negative for depression, anxiety, suicide ideation, homicidal ideation, and hallucinations, Allergy/Immunology: Negative for hives, rash, and allergies, Endocrine: Negative for neck swelling, polydipsia, polyuria, polyphagia, and marked weight changes, Hematologic/Lymphatic: Negative for swollen nodes, abnormal bleeding, and unusual bruising. Skin: Positive for cellulitis, erythema, swelling, of the lateral aspect of right calf, right calf, medial aspect of right calf and right tesfaye. Exam: 09:27 Constitutional: This is a well developed, well nourished patient who is awake, alert, kdr and in no acute distress. Head/Face: Normocephalic, atraumatic. Eyes: Pupils equal round and reactive to light, extra-ocular motions intact. Lids and lashes normal. Conjunctiva and sclera are non-icteric and not injected. Cornea within normal limits. Periorbital areas with no swelling, redness, or edema. Neck: Trachea midline, no thyromegaly or masses palpated, and no cervical lymphadenopathy. Supple, full range of motion without nuchal rigidity, or vertebral point tenderness. No Meningismus. Chest/axilla: Normal chest wall appearance and motion. Nontender with no deformity. No lesions are appreciated. Cardiovascular: Regular rate and rhythm with a normal S1 and S2. No gallops, murmurs, or rubs. Normal PMI, no JVD. No pulse deficits. Respiratory: Lungs have equal breath sounds bilaterally, clear to auscultation and percussion. No rales, rhonchi or wheezes noted. No increased work of breathing, no retractions or nasal flaring. Abdomen/GI: Soft, non-tender, with normal bowel sounds. No distension or tympany. No guarding or rebound. No evidence of tenderness throughout. Back: No spinal tenderness. No costovertebral tenderness. Full range of motion. MS/ Extremity: Pulses equal, no cyanosis. Neurovascular intact. Full, normal range of motion. Neuro: Awake and alert, GCS 15, oriented to person, place, time, and situation. Cranial nerves II-XII grossly intact. Motor strength 5/5 in all extremities. Sensory grossly intact. Cerebellar exam normal. Normal gait. Psych: Awake, alert, with orientation to person, place and time. Behavior, mood, and affect are within normal limits. 09:27 Skin: cellulitis, that is mild, that is moderate, confluent, on the lateral aspect of right calf. Vital Signs: 04/24 09:55 BP 148 / 93; Pulse 80; Resp 18; Temp 97.6; Pulse Ox 96% ; Weight 100.7 kg; Height 5 ft. ll1 7 in. (170.18 cm); Pain 8/10; 11:24 BP 144 / 96; Pulse 61; Resp 18; Pulse Ox 99% on R/A; Pain 7/10; em 13:42 BP 140 / 84; Pulse 80; Resp 18; Pulse Ox 97% on R/A; Pain 5/10; em 09:55 Body Mass Index 34.77 (100.70 kg, 170.18 cm) ll1 MDM: 12:11 Patient medically screened. kdr 04/25 09:27 Data reviewed: vital signs, nurses notes, lab test result(s), radiologic studies. kdr Counseling: I had a detailed discussion with the patient and/or guardian regarding: the historical points, exam findings, and any diagnostic results supporting the discharge/admit diagnosis, lab results, radiology results, the need for further work-up and treatment in the hospital. 04/24 11:13 Order name: CBC with Diff kdr 04/24 11:13 Order name: Chem 7 kdr 04/24 11:13 Order name: US Extremity Venous Unilateral Ltd kdr 04/24 11:13 Order name: Blood Culture Adult (2) kdr Administered Medications: 04/24 12:48 Drug: morphine 2 mg Route: IVP; Site: left antecubital; ss 13:40 Follow up: Response: No adverse reaction; Marked relief of symptoms; Pain is decreased em 12:50 Drug: vancoMYCIN 1.5 grams Route: IVPB; Rate: calculated rate; Site: left antecubital; ss 13:40 Follow up: IV Status: Infusion continued upon admission em 12:50 Drug: chlorproMAZINE 50 mg Route: PO; ss 13:31 Follow up: Response: No adverse reaction em Disposition: 04/24/20 12:11 Hospitalization ordered by Reginaldo Culver for Inpatient Admission. Preliminary diagnosis is Cellulitis of left lower limb. - Bed requested for Telemetry/MedSurg (observation). - Status is Inpatient Admission. ss - Condition is Fair. - Problem is new. - Symptoms have improved. Signatures: Dispatcher [employer] EDWillem Kahn MD MD [facility] Harry Zazueta, RN RN em Elyse Felton RN RN Yosef Nascimento, PA KRISTOPHER [email or web address] Ranjit Dee RN RN ja1 Beto Sigala RN RN ll1 Corrections: (The following items were deleted from the chart) 13:01 12:11 Hospitalization Ordered by Reginaldo Culver MD for Inpatient Admission. Preliminary ja1 diagnosis is Cellulitis of left lower limb. Bed requested for Telemetry/MedSurg (observation). Status is Inpatient Admission. Condition is Fair. Problem is new. Symptoms have improved. kdr 14:06 13:01 04/24/2020 12:11 Hospitalization Ordered by Reginaldo Culver MD for Inpatient ss Admission. Preliminary diagnosis is Cellulitis of left lower limb. Bed requested for Telemetry/MedSurg (observation). Status is Inpatient Admission. Condition is Fair. Problem is new. Symptoms have improved. ja1
--- NOTE | 2020-04-24 12:12 | ER ---
Nurse's Notes [facility] Name: Steven Hope Age: 59 yrs Sex: Male : 1960 Arrival Date: 04/24/2020 Time: 09:46 Bed 4 Private MD: Hema De La Rosa H Diagnosis: Cellulitis of left lower limb Presentation: 04/24 09:55 Chief complaint: Patient states: LLE pain and redness for 2-3 weeks. On amoxicillin ll1 since Tuesday. Ultrasound two days ago is negative for DVT. No fever. Coronavirus screen: Client denies travel out of the [place] in the last 14 days. At this time, the client does not indicate any symptoms associated with coronavirus-19. Ebola Screen: Patient denies travel to an Ebola-affected area in the 21 days before illness onset. Initial Sepsis Screen: Does the patient meet any 2 criteria? No. Patient's initial sepsis screen is negative. Risk Assessment: Do you want to hurt yourself or someone else? Patient reports no desire to harm self or others. Onset of symptoms was March 31, 2020. 09:55 Method Of Arrival: Wheelchair ll1 09:55 Acuity: OTILIA 3 ll1 Historical: - Allergies: 09:58 No Known Allergies; ll1 - PMHx: 09:58 Back pain; Kidney stones; ll1 - PSHx: 09:58 Kidney stone removal; major back surgery; ll1 - Immunization history:: Flu vaccine is up to date. - Social history:: Smoking status: Patient reports the use of cigarette tobacco products, smokes one pack cigarettes per day. Screenin:47 Abuse screen: Denies threats or abuse. Nutritional screening: No deficits noted. em Tuberculosis screening: No symptoms or risk factors identified. Fall Risk None identified. Assessment: 10:48 General: Appears in no apparent distress. uncomfortable, Behavior is calm, cooperative, em appropriate for age, Denies fever. Pain: Complains of pain in left tesfaye and anterior aspect of left ankle Pain currently is 7 out of 10 on a pain scale. Neuro: Level of Consciousness is awake, alert, obeys commands, Oriented to person, place, time, situation, Appropriate for age. Cardiovascular: Capillary refill < 3 seconds Patient's skin is warm and dry. Respiratory: Airway is patent Respiratory effort is even, unlabored, Respiratory pattern is regular, symmetrical. GI: Abdomen is round non-distended, Abd is soft and non tender X 4 quads. Reports nausea, vomiting, Patient currently denies abdominal pain. Derm: Skin is intact, is healthy with good turgor, Skin is dry, Skin is red, Skin temperature is hot left leg is reddened. Musculoskeletal: Capillary refill < 3 seconds. 11:48 Reassessment: Pt in ultrasound. IV access delayed. ss 11:50 Reassessment: wheeled to CT. em 12:30 Reassessment: Patient appears in no apparent distress at this time. Patient and/or em family updated on plan of care and expected duration. Pain level reassessed. Patient is alert, oriented x 3, equal unlabored respirations, skin warm/dry/pink. 13:42 Reassessment: Patient appears in no apparent distress at this time. Patient and/or em family updated on plan of care and expected duration. Pain level reassessed. Patient is alert, oriented x 3, equal unlabored respirations, skin warm/dry/pink. Patient states feeling better. Patient states symptoms have improved. Vital Signs: 09:55 BP 148 / 93; Pulse 80; Resp 18; Temp 97.6; Pulse Ox 96% ; Weight 100.7 kg; Height 5 ft. ll1 7 in. (170.18 cm); Pain 8/10; 11:24 BP 144 / 96; Pulse 61; Resp 18; Pulse Ox 99% on R/A; Pain 7/10; em 13:42 BP 140 / 84; Pulse 80; Resp 18; Pulse Ox 97% on R/A; Pain 5/10; em 09:55 Body Mass Index 34.77 (100.70 kg, 170.18 cm) ll1 ED Course: 09:46 Patient arrived in ED. mr 09:46 Hema De La Rosa DO is Private Physician. mr 09:57 Triage completed. ll1 09:58 Arm band placed on. ll1 10:38 Willem Pratt MD is Attending Physician. kdr 10:41 Harry Zazueta, THONG is Primary Nurse. em 10:47 Patient has correct armband on for positive identification. Placed in gown. Bed in low em position. Call light in reach. Pulse ox on. NIBP on. 11:40 Missed attempt(s): 22 gauge in left in right antecubital area. Bleeding controlled, em band aid applied, catheter tip intact. 11:50 US Extremity Venous Unilateral Ltd In Process Unspecified. EDMS 12:10 Reginaldo Culver MD is Hospitalizing Provider. kdr 12:35 Missed attempt(s): 22 gauge in right forearm. Bleeding controlled, band aid applied, 3 catheter tip intact. 12:40 Initial lab(s) drawn, by ED staff, sent to lab. First set of blood cultures drawn by [facility] Elyse Felton. Inserted saline lock: 22 gauge in left antecubital area, using aseptic technique. Blood collected. 12:45 Second set of blood cultures drawn by Elyse Felton. [facility] 14:03 No provider procedures requiring assistance completed. Patient admitted, IV remains in ss place. Administered Medications: 12:48 Drug: morphine 2 mg Route: IVP; Site: left antecubital; 13:40 Follow up: Response: No adverse reaction; Marked relief of symptoms; Pain is decreased em 12:50 Drug: vancoMYCIN 1.5 grams Route: IVPB; Rate: calculated rate; Site: left antecubital; 13:40 Follow up: IV Status: Infusion continued upon admission em 12:50 Drug: chlorproMAZINE 50 mg Route: PO; 13:31 Follow up: Response: No adverse reaction em Outcome: 12:11 Decision to Hospitalize by Provider. kdr 14:03 Admitted to Med/surg accompanied by tech, via wheelchair, with chart, Report called to DELANEY.RN 14:03 Condition: good 14:03 Instructed on the need for admit. 14:06 Patient left the ED. Signatures: Dispatcher [employer] EDMS Willem Pratt MD MD kdr Rivera, Harry Felix RN Elyse Headley RN RN Kelly Martínez [facility] Beto Sigala RN RN ll1
[2020-04-24] MEDS ORDERED: MORPHINE 2 MG/ML SYR ONE (12:30)
[2020-04-24 13:01] LABS: Absolute Lymphocytes (CBC) 1.3 K/uL (0.7-4.9); Basophils % 0.5 % (0-1.3); Hematocrit 53.6 % (39.6-49.0); Lymphocytes % 10.7 % (15.3-44.8); MPV 7.1 fL (7.6-11.3); RBC Red Blood Cell Count 5.31 M/uL (4.33-5.43)
[2020-04-24 13:09] LABS: Potassium 4.8 mmol/L (3.5-5.1)
--- NOTE | 2020-04-24 14:00 | P.HP ---
Certification for Inpatient Patient admitted to: Inpatient With expected LOS: >2 Midnights Practitioner: I am a practitioner with admitting privileges, knowledge of patient current condition, hospital course, and medical plan of care. Services: Services provided to patient in accordance with Admission requirements found in Title 42 Section 412.3 of the Code of Federal Regulations Patient History Date of Service: 04/24/20 Reason for admission: LLE cellulitis, failed outpatient therapy History of Present Illness: 59-year-old male, PMH: Opiate dependence on some oxycodone, chronic back pain, otherwise denies any past history. Patient presents to ED with significant left lower extremity pain, redness, and swelling. He states this has been progressively worsening over the past 2 weeks. He saw his PCP 4 days ago and was started on the Lasix and amoxicillin. He states a few weeks ago prior to this issue, his right lower extremity was very swollen but that resolved on its own. He reports no fevers, no chills, no vision changes, no shortness of breath, no chest pain, no abdominal pain, no changes in bowel/bladder habits. He does endorse some nausea and feeling Like shit" for the past 2 days, with significant decreased p.o. intake. In the ED, he was noted to have a leukocytosis of 12.5, mildly elevated bicarb of 34, afebrile, hypertensive. On arrival to the ED, patient's heart rate: 80s, BP: 140/90s, SpO2: 99% on room air Allergies No Known Allergies Allergy (Unverified 04/24/20 11:28) Home Medications: Amoxicillin [Amoxil] 875 mg PO BID 04/24/20 Buprenorphine HCl/Naloxone HCl [Suboxone 2 mg-0.5 mg Sl Film] 1 each SL DAILY 04/24/20 Furosemide [Lasix] 20 mg PO DAILY 04/24/20 - Past Medical/Surgical History -: Opioid dependence -: Chronic back pain -: Multiple back surgeries -: lap band - Family History Family History: Reviewed- Non-Contributory - Social History Smoking Status: Current every day smoker Smoking therapy provided: Yes Review of Systems 10-point ROS is otherwise unremarkable Physical Examination - Physical Exam General: Alert, In no apparent distress Neck: JVD not distended, No LAD Respiratory: Clear to auscultation bilaterally, Normal air movement Cardiovascular: Regular rate/rhythm, Normal S1 S2 Gastrointestinal: Soft and benign, Non-distended, Tenderness Musculoskeletal: Erythema (Left lower extremity from mid foot up to the mid lower leg, circumferential), Tenderness (LLE), Warmth (LLE), Other (No open wounds on left lower extremity, no drainage) Integumentary: Other (Multiple varicose veins on bilateral legs) Neurological: Normal speech, Normal affect - Studies Laboratory Data (last 24 hrs) 04/24/20 12:40: Sodium 139, Potassium 4.8, BUN 11, Creatinine 0.89, Glucose 86 04/24/20 12:40: WBC 12.5 H, Hgb 17.9, Hct 53.6 H, Plt Count 340 Assessment and Plan - Advance Directives Does patient have a Living Will: No Does patient have a Durable POA for Healthcare: No Physician Review Additional Text: LLE cellulitis, failed outpatient therapy Hypertension Opiate dependence. Chronic back pain Nicotine dependence LLE cellulitis, failed outpatient therapy -failed amoxicillin as an outpatient, received IV vanc in the ED -no significant risk for MRSA, will treat with cefazolin -will give gentle IV fluids @100ml/hr appears dry and has had decreased p.o. intake, monitor closely -blood cultures obtained in the ED -left lower extremity Doppler was performed in the ED and reported as negative, however difficult due to patient's tenderness -will check entrance CRP, troponin, lactate Hypertension -elevated in the ED likely secondary to pain, patient reports no history, but unclear borges compliant and how often he sees a physician -10 and p.r.n. if needed Opiate dependence Chronic back pain -continue home Suboxone Nicotine dependence -nicotine patch ordered Code: Full VTE prophylaxis: Lovenox Dispo: anticipate dc home in ~2 days Time Spent Managing Pts Care (In Minutes): 60
[2020-04-24] MEDS ORDERED: NA CHLORIDE 0.9% 1,000 ML IV SCH (14:35)
[2020-04-24] MEDS ORDERED: ONDANSETRON 4 MG (ODT) TAB PO PRN (14:35)
[2020-04-24] MEDS ORDERED: MORPHINE 2 MG/ML SYR IV PRN (14:35)
[2020-04-24 14:55] VITALS: BMI 35.2
[2020-04-24] MEDS: ENOXAPARIN 40 MG/0.4 ML SQ SCH (17:24)
[2020-04-24] MEDS: CEFAZOLIN/SWI 2gm 2 GM/20 ML SYR IVP SCH (17:24)
[2020-04-24] MEDS: NICOTINE 21 MG/PAT TD SCH (17:24)
[2020-04-24] MEDS ORDERED: FUROSEMIDE 40 MG/4 ML VIAL IV SCH (19:03)
[2020-04-24] MEDS ORDERED: FUROSEMIDE 40 MG/4 ML VIAL IV ONE (19:10)
[2020-04-24] MEDS ORDERED: FUROSEMIDE 40 MG/4 ML VIAL ONE (19:16)
[2020-04-24 19:28] LABS: Arterial Blood Carboxyhemoglob 6.3 % (0-1.5); Blood O2 Saturation 90.4 % (92-98.5)
[2020-04-24] MEDS: Buprenorphine Hcl/Naloxone Hcl [Suboxone 2 Mg-0.5 Mg Sl Film] SL SCH (20:07)
--- NOTE | 2020-04-24 23:45 | RAD REPORT ---
EXAM DESCRIPTION: CT - Head Brain Wo Cont - 04/24/2020 10:24 pm CLINICAL HISTORY: ams Headache, drowsiness COMPARISON: No comparisons TECHNIQUE: All CT scans are performed using dose optimization technique as appropriate and may inclu de automated exposure control or mA/KV adjustment according to patient size. FINDINGS: No intracranial hemorrhage, hydrocephalus or extra-axial fluid collection.No areas of brai n edema or evidence of midline shift. The paranasal sinuses and mastoids are clear. The calvarium is intact. IMPRESSION: No acute intracranial abnormality.
--- NOTE | 2020-04-24 23:48 | RAD REPORT ---
EXAM DESCRIPTION: CT - Chest For Pe Angio - 04/24/2020 10:23 pm CLINICAL HISTORY: Chest pain. hypoxia COMPARISON: No comparisons TECHNIQUE: CT angiogram of the pulmonary arteries was performed with MIP. All CT scans are performed using dose optimization technique as appropriate and may include automated exposure control or mA/KV adjustment according to patient size. FINDINGS: No evidence of pulmonary thromboembolism. No acute aortic finding demonstrated. Moderate bilateral interstitial lung opacities are present suggesting interstitial pneumonia/ pulmona ry infection. No significant pericardial or pleural fluid. Esophagus is timely with fluid within gastric banding no segun. Spinal hardware is present. IMPRESSION: No evidence of pulmonary thromboembolism. Moderate bilateral interstitial lung opacities are present likely representing interstitial pneumonia .
--- NOTE | 2020-04-25 00:23 | RAD REPORT ---
EXAM DESCRIPTION: RAD - Chest Pa And Lat (2 Views) - 04/24/2020 10:22 pm CLINICAL HISTORY: Desaturation Chest pain. COMPARISON: Abdomen 1 View (KUB) dated 05/21/2019; Abdomen 1 View (KUB) dated 05/07/2019; Abdomen 1 View (KUB) dated 04/23/2019; Abdomen 1 View (KUB) dated 03/28/2019 FINDINGS: Moderate bilateral interstitial lung opacities are present with could represent pulmonary edema or interstitial pneumonia. The heart is mildly prominent size. Thoracolumbar hardware is presen t.
[2020-04-25 00:46] LABS: ALT/SGPT 12 U/L (12-78); AST/SGOT 13 U/L (15-37); Albumin 3.4 g/dL (3.4-5.0); Alkaline Phosphatase 87 U/L (45-117); BUN Blood Urea Nitrogen 11 mg/dL (7-18); Bicarbonate 30 mmol/L (21-32); Bilirubin Direct 0.3 mg/dL (0-0.2); Bilirubin Total 0.7 mg/dL (0.2-1.0); Creatine Phosphokinase 60 U/L (39-308); Glucose Level 82 mg/dL (74-106); Protein, Total 7.8 g/dL (6.4-8.2); Sodium Level 138 mmol/L (136-145)
--- NOTE | 2020-04-25 01:00 | P.PN ---
Date of Service: 04/25/20 Rapid response was called yesterday evening, patient was having labored breathing and decreased mentation. Patient's saturations on Venti mask were in the high 80s. When I went to examine the patient he had crackles in bilateral lung horne. Ordered BiPAP, Lasix, Joy catheter be placed. Patient had 1800 cc urine output within the 1st couple of hr. Patient's arrived at bedside and stated that after receiving a medication in the emergency department he began acting differently. Upon further review of records patient received Thorazine for hiccups while in the emergency department. Patient had chest x- ray after it was noted that he is hypoxic which showed mild pulmonary edema, CT PE study was negative for pulmonary embolism although did show some fluid in the distal esophagus. Patient is known to have lap band and states that he has problems with reflux and feeling like food is not passing sometimes. Also perform CT brain to rule out any acute intracranial findings which was negative. ABG showed the patient was mildly hypoxic and mildly hypercapnic. Patient was initiated on BiPAP which he did not tolerate very well and was trying to pull off. At around midnight I went to examine the patient again, he was requiring 70% FiO2 on BiPAP is still with some confusion. Due to change in condition and patient's high level of oxygen requirement and decreased mentation patient admitted to intensive care unit. Patient does respond to verbal stimulus, will attempt to implement high-flow nasal cannula to decrease risk for aspiration if he can tolerate this. Discussed with at length regarding plan of care. Will continue to monitor patient closely in the intensive care unit.
[2020-04-25] MEDS: CEFAZOLIN/SWI 2gm 2 GM/20 ML SYR IVP SCH ×3 (01:11→17:48)
[2020-04-25 05:54] LABS: Absolute Lymphocytes (CBC) 0.7 K/uL (0.7-4.9); Basophils % 0.4 % (0-1.3); Hematocrit 50.4 % (39.6-49.0); Lymphocytes % 7.4 % (15.3-44.8); MPV 7.2 fL (7.6-11.3); RBC Red Blood Cell Count 5.07 M/uL (4.33-5.43)
[2020-04-25 06:16] LABS: Albumin 3.3 g/dL (3.4-5.0); Bilirubin Total 0.8 mg/dL (0.2-1.0); C-Reactive Protein 83.7 mg/L (<3.00); Magnesium 1.6 mg/dL (1.8-2.4); Phosphorus 2.7 mg/dL (2.5-4.9); Potassium 4.6 mmol/L (3.5-5.1); Protein, Total 7.4 g/dL (6.4-8.2)
[2020-04-25] MEDS ORDERED: MORPHINE 2 MG/ML SYR ONE (06:20)
[2020-04-25 06:37] LABS: Blood Morphology Comment NOT SEEN (NOT SEEN); Platelet Estimate ADEQ
[2020-04-25] MEDS ORDERED: FUROSEMIDE 40 MG/4 ML VIAL ONE (08:05)
[2020-04-25] MEDS ORDERED: ENOXAPARIN 40 MG/0.4 ML SQ ONE (08:06)
[2020-04-25] MEDS: FUROSEMIDE 20 MG/ 2ML VIAL IV SCH (09:00)
[2020-04-25] MEDS ORDERED: MAGNESIUM SULFATE 1 gm IVPB 1 GM/100 ML BAG IV ONE ×2 (09:00→10:19)
[2020-04-25] MEDS: Buprenorphine Hcl/Naloxone Hcl [Suboxone 2 Mg-0.5 Mg Sl Film] SL SCH ×2 (09:16→20:42)
--- NOTE | 2020-04-25 09:18 | P.PN ---
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 Workup revealed concern for insterstitial pneumonia Patient transferred to ICU and on 35L HFNC. BIPAP was avoiding due to his decreased mentation and concern for aspiration Patient and his report he is breathing better this morning, he feels better remains sleepy/tired, occassionally has increased work of breathing) Physical Examination - Vital Signs Temperature: 99.1 F Blood Pressure: 115/55 Pulse: 90 Respirations: 25 Pulse Ox (%): 95 - Physical Exam General: Oriented x3, Other (appears sleepy, but answers questions a ppropriately, somewhat agitated) Respiratory: Diminished (at bases), Crackles/rales (bilateral in lower lung horne) Cardiovascular: Regular rate/rhythm, Edema (1+ on LLE, improved) Gastrointestinal: Soft and benign, Non-distended, No tenderness Musculoskeletal: Tenderness (b/l lower legs, L>R, improved) Integumentary: Erythema (mild in LLE from calf to ankle, much improved) Neurological: Cranial nerves 3-12 intact, Abnormal speech (sluggish, slight slurred / sleepy, improves when prompted more) Urinary: Mehta catheter - Studies Laboratory Data (last 24 hrs) 04/24/20 12:40: Sodium 139, Potassium 4.8, BUN 11, Creatinine 0.89, Glucose 86 04/24/20 12:40: WBC 12.5 H, Hgb 17.9, Hct 53.6 H, Plt Count 340 Assessment & Plan Physician Review Additional Text: LLE cellulitis, failed outpatient therapy Hypertension Opiate dependence. Chronic back pain Nicotine dependence LLE cellulitis, failed outpatient therapy -failed amoxicillin as an outpatient, received IV vanc in the ED -no significant risk for MRSA, continue cefazolin -improved significantly compared to yesterday -blood cultures obtained in the ED -left lower extremity Doppler was performed in the ED and reported as negative, however difficult due to patient's tenderness -CRP uptrending, likely due to interstitial pneumonia and not cellulitis given clinical improvement Acute hypoxemic respiratory failure Insterstitial pneumonia -reported no cough/SOB, h/o lung issues at time of admission, lungs were clear in ED -received ~3-4 hours of 100ml/hr NS prior to desaturation yesterday -IVF dc'd yesterday, pt given 60mg IV Lasix and continued on 40mg BID, however no significant effusions/edema noted on CT, BP trending down, lower leg edema improved, will decrease to IV 20mg daily, can give extra doses if needed/appropriate. 1900ml UOP overnight. -mehta for strict I/Os -CXR: ?pulm edema, CT: concern for interstitial pneumonia -BNP: 66 -CRP: 41.7 on admission, up to 83.7 today -start solumedrol, 40mg IV q8hr for now -pulmonology consulted -currently on 35L HFNC at 90% fIO2 -ABG pending for this morning Hypertension -elevated in the ED likely secondary to pain, patient reports no history, but unclear how compliant and how often he sees a physician -10 and p.r.n. if needed Opiate dependence Chronic back pain -continue home Suboxone Nicotine dependence -nicotine patch ordered Code: Full VTE prophylaxis: Lovenox Dispo: anticipate dc home in 2-3 days, requires ICU level of care Time Spent Managing Pts Care (In Minutes): 40
[2020-04-25] MEDS: ENOXAPARIN 40 MG/0.4 ML SQ SCH (09:25)
[2020-04-25] MEDS: NICOTINE 21 MG/PAT TD SCH (09:26)
--- NOTE | 2020-04-25 09:45 | RAD REPORT ---
EXAM DESCRIPTION: RAD - Chest Single View - 04/25/2020 9:32 am CLINICAL HISTORY: SOB, hypoxia; b/l opacities COMPARISON: CT chest April 24, two view chest April 24 TECHNIQUE: AP portable chest image was obtained 04/25/2020 9:32 am . FINDINGS: Lung volumes are reduced compared to prior study. Diffuse interstitial opacification is pr esent. Airspace opacification is also present. Right base findings are progressive some of which is d ue to under penetrated technique and shallow inspiration. There is certainly been no improvement from prior day examination. Heart and vasculature are normal. No measurable pleural effusion and no pneum othorax. No acute bony abnormality seen. No acute aortic findings suspected. IMPRESSION: Interstitial and alveolar opacification is present worse in the medial right base. Findings are progressive from April 24 imaging, part of which is due to lower lung volumes. Bilateral pneumonia is a primary consideration. A noninfectious failure or volume overload would be p ossible as well.
[2020-04-25] MEDS: METHYLPREDNISOLONE 40 MG INJ IV SCH ×2 (10:08→17:19)
[2020-04-25] MEDS ORDERED: METHYLPREDNISOLONE 40 MG INJ ONE ×3 (10:19→22:47)
[2020-04-25] MEDS: ARFORMOTEROL TARTRATE 15 MCG/2 ML VIAL.NEB NEB SCH ×2 (10:47→20:00)
--- NOTE | 2020-04-25 10:49 | P.CNS ---
Date of Consult: 04/25/20 Reason for Consult: Respiratory failure Chief Complaint: Respiratory failure History of Present Illness: Patient is 59 years of age heavy smoker admitted with cellulitis developed respiratory distress was transferred to the ICU very hypoxic no prior history of obstructive or cardiac lung disease chest x-ray shows significant interstitial disease any cellulitis has improved significantly feeling better history of opioid dependence back injuries and surgeries Allergies No Known Allergies Allergy (Unverified 04/24/20 11:28) Home Medications: Amoxicillin [Amoxil] 875 mg PO BID 04/24/20 Buprenorphine HCl/Naloxone HCl [Suboxone 2 mg-0.5 mg Sl Film] 1 each SL DAILY 04/24/20 Furosemide [Lasix] 20 mg PO DAILY 04/24/20 - Past Medical/Surgical History -: Opioid dependence -: Chronic back pain -: Multiple back surgeries -: lap band - Social History Smoking Status: Current every day smoker Review of Systems Unremarkable General: Weakness Respiratory: Cough, Shortness of Breath Musculoskeletal: Other (Some tenderness in the left leg) Physical Examination Temp Pulse Resp BP Pulse Ox 99.1 F 90 25 H 115/55 L 95 04/25/20 09:30 04/25/20 09:30 04/25/20 09:30 04/25/20 09:30 04/25/20 09:30 General: Alert, In no apparent distress, Oriented x3 Respiratory: Clear to auscultation bilaterally Cardiovascular: No edema, Regular rate/rhythm, Normal S1 S2 Gastrointestinal: Normal bowel sounds, Soft and benign, Non-distended Laboratory Data (last 24 hrs) 04/24/20 12:40: Sodium 139, Potassium 4.8, BUN 11, Creatinine 0.89, Glucose 86 04/24/20 12:40: WBC 12.5 H, Hgb 17.9, Hct 53.6 H, Plt Count 340 - Problems (1) Respiratory failure Current Visit: Yes Status: Acute Plan: Patient is 59 years of age admitted with cellulitis developed respiratory distress became hypoxic was admitted to the ICU is doing much better although still on high-flow nasal cannula oxygen he does not appear to be septic can change him over to p.o. levofloxacin blood cultures are pending he has cut pretty impressive interstitial lung disease on the x-ray echocardiogram is pending I recommend adding spironolactone 25 mg twice a day Lasix low-dose Dc Joy catheter (2) COPD (chronic obstructive pulmonary disease) Current Visit: Yes Status: Acute Plan: Patient is a heavy smoker I strongly suspect he has obstructive airways disease blood gases shows hypoxia hypercapnia he will need outpatient workup including pulmonary function testing and will benefit from a bronchodilator I have added Brovana use ipratropium schedule for now Qualifiers: COPD type: unspecified COPD Qualified Code(s): J44.9 - Chronic obstructive pulmonary disease, unspecified
--- NOTE | 2020-04-25 11:38 | EKG ---
Test Date: 2020-04-25 Test Time: 02:29:51 Syrup Mixer Assistant: [place] MEASUREMENT RESULTS: Intervals: Rate: 92 HI: 136 QRSD: 92 QT: 378 QTc: 467 Gervais: P: 53 HI: 136 QRS: 45 T: -5 INTERPRETIVE STATEMENTS: Normal sinus rhythm ST abnormality, possible digitalis effect Abnormal ECG Compared to ECG 03/07/2019 09:36:48 ST (T wave) deviation now present Electronically Signed On 04-25-20 11:37:14 CDT by Virgil Wade
--- NOTE | 2020-04-25 11:43 | RAD REPORT ---
EXAM DESCRIPTION: US - Extremity Venous Uni Ltd - 04/24/2020 10:20 pm CLINICAL HISTORY: Pain;Swelling COMPARISON: None. TECHNIQUE: Real-time sonographic evaluation of the left lower extremity deep venous system was perfo rmed. FINDINGS: Normal compressibility, flow augmentation, phasic flow and spontaneous flow are identified in the left lower extremity common femoral, superficial femoral, popliteal and posterior tibial vein s. No intraluminal filling defects seen. Final report was delayed due to malfunction of the dip tanker system. IMPRESSION: No DVT in the left lower extremity.
--- NOTE | 2020-04-25 12:04 | ECHO ---
HEIGHT: 5 ft 7 in WEIGHT: 225 lb 0 oz DATE OF STUDY: 04/25/[address]: Song Montero NP 2-DIMENSIONAL: YES M.MODE: YES DOPPLER: YES COLOR FLOW: YES TDS: YES PORTABLE: NO DEFINITY: NO BUBBLE STUDY: NO DIAGNOSIS: PULMONARY EDEMA CARDIAC HISTORY: CATHERIZATION: SURGERY: PROSTHETIC VALVE: PACEMAKER: MEASUREMENTS (cm) DIASTOLIC (NORMALS) SYSTOLIC (NORMALS) IVSd 1.0 (0.6-1.2) LA Diam (1.9-4.0) LVEF 68% LVIDd 4.4 (3.5-5.7) LVIDs 2.7 (2.0-3.5) %FS 38% LVPWd 1.1 (0.6-1.2) Ao Diam 2.7 (2.0-3.7) 2 DIMENSIONAL ASSESSMENT: RIGHT ATRIUM: NORMAL LEFT ATRIUM: NORMAL RIGHT VENTRICLE: NORMAL LEFT VENTRICLE: NORMAL TRICUSPID VALVE: NORMAL MITRAL VALVE: MITRAL ANNULAR CALCIFICATION PULMONIC VALVE: NORMAL AORTIC VALVE: SCLEROSIS PERICARDIAL EFFUSION: NONE AORTIC ROOT: NORMAL LEFT VENTRICULAR WALL MOTION: NORMAL DOPPLER/COLOR FLOW: NORMAL LEFT VENTRICULAR EJECTION FRACTION. DECREASED LEFT VENTRICULAR COMPLIANCE. COMMENTS: GRADE I DIASTOLIC DYSFUNCTION. NORMAL LEFT VENTRICULAR EJECTION FRACTION AND LEFT VENTRICULAR SIZE. MITRAL ANNULAR CALCIFICATION. AORTIC SCLEROSIS. TECHNOLOGIST: John AHGEN
[2020-04-25] MEDS: IPRATROPIUM BROM 0.5MG/2.5ML NEB SCH ×2 (13:11→20:00)
[2020-04-25] MEDS ORDERED: IPRATROPIUM BROM 0.5MG/2.5ML ONE ×2 (13:19→20:14)
[2020-04-26] MEDS: METHYLPREDNISOLONE 40 MG INJ IV SCH ×3 (00:27→16:29)
[2020-04-26] MEDS: CEFAZOLIN/SWI 2gm 2 GM/20 ML SYR IVP SCH ×3 (00:27→16:29)
[2020-04-26] MEDS ORDERED: IPRATROPIUM BROM 0.5MG/2.5ML ONE ×2 (01:41→08:06)
[2020-04-26] MEDS: IPRATROPIUM BROM 0.5MG/2.5ML NEB SCH ×4 (02:00→20:00)
[2020-04-26 06:04] LABS: Absolute Lymphocytes (CBC) 0.7 K/uL (0.7-4.9); Basophils % 0.7 % (0-1.3); Lymphocytes % 4.8 % (15.3-44.8); MPV 7.3 fL (7.6-11.3)
[2020-04-26] MEDS: Buprenorphine Hcl/Naloxone Hcl [Suboxone 2 Mg-0.5 Mg Sl Film] SL SCH ×2 (06:18→20:42)
[2020-04-26 06:20] LABS: Bilirubin Total 0.5 mg/dL (0.2-1.0); Magnesium 2.1 mg/dL (1.8-2.4); Potassium 4.3 mmol/L (3.5-5.1); Protein, Total 8.1 g/dL (6.4-8.2)
[2020-04-26] MEDS: ACETAMINOPHEN 500 MG TAB PO PRN ×3 (07:27→20:39)
[2020-04-26] MEDS ORDERED: ACETAMINOPHEN 500 MG TAB ONE (07:35)
[2020-04-26] MEDS: ARFORMOTEROL TARTRATE 15 MCG/2 ML VIAL.NEB NEB SCH (07:55)
[2020-04-26] MEDS ORDERED: FUROSEMIDE 20 MG/ 2ML VIAL ONE (08:12)
[2020-04-26] MEDS ORDERED: ENOXAPARIN 40 MG/0.4 ML SQ ONE (08:12)
[2020-04-26] MEDS ORDERED: NICOTINE 21 MG/PAT TD ONE (08:13)
[2020-04-26] MEDS ORDERED: METHYLPREDNISOLONE 40 MG INJ ONE (08:13)
[2020-04-26] MEDS: ENOXAPARIN 40 MG/0.4 ML SQ SCH (08:46)
[2020-04-26] MEDS: NICOTINE 21 MG/PAT TD SCH (08:47)
[2020-04-26] MEDS: FUROSEMIDE 20 MG/ 2ML VIAL IV SCH (08:47)
[2020-04-26 08:55] LABS: Blood Morphology Comment NOT SEEN (NOT SEEN); Platelet Estimate ADEQ; White Blood Cell Scan OK (OK)
--- NOTE | 2020-04-26 10:11 | P.PN ---
Subjective Date of Service: 04/26/20 Chief Complaint: Respiratory failure Subjective: Improving (down to 3L NC, breathing more comfortably, mentating better b/l swelling improved, pain of LLE improving, redness nearly resolved) Physical Examination - Vital Signs Temperature: 97.6 F Blood Pressure: 116/82 Pulse: 83 Respirations: 18 Pulse Ox (%): 93 - Physical Exam General: Alert, In no apparent distress, Oriented x3 HEENT: Mucous membr. moist/pink Neck: JVD not distended Respiratory: Diminished, Crackles/rales (bilateral lower lung horne) Cardiovascular: Regular rate/rhythm, Edema (1+ to above ankle on left) Gastrointestinal: Soft and benign, Non-distended, No tenderness Integumentary: Tenderness/swelling (LLE - up to mid lower leg, most tender around ankle), Erythema (very faint LLE: ankle) Neurological: Normal speech, Normal affect Assessment & Plan Physician Review Additional Text: LLE cellulitis, failed outpatient therapy Hypertension Opiate dependence. Chronic back pain Nicotine dependence LLE cellulitis, failed outpatient therapy -failed amoxicillin as an outpatient, received IV vanc in the ED -no significant risk for MRSA, continue cefazolin -improved significantly -blood cultures obtained in the ED: NGTD -left lower extremity Doppler was performed in the ED and reported as negative, however difficult due to patient's tenderness -CRP uptrending, likely due to interstitial pneumonia and not cellulitis given clinical improvement Acute hypoxemic respiratory failure Insterstitial pneumonia -reported no cough/SOB, h/o lung issues at time of admission, lungs were clear in ED -received ~3-4 hours of 100ml/hr NS prior to desaturation yesterday -[employer] on 04/24 evening, IVF dc'd, 60mg IV Lasix given, continued on 20mg IV daily; significant improvement, will decrease to 20mg PO daily -mehta initially placed for strict I/O's, dc'd this morning -CT: concern for interstitial pneumonia -BNP: 66 -CRP: 41.7 on admission, up to 83.7 -> 255 today -continue solumedrol, 40mg IV q8hr for now -pulmonology consulted - appreciate assistance -currently on 3L NC since last night -with significant improvement clinically, suspect CRP to downtrend tomorrow Hypertension -elevated in the ED likely secondary to pain, patient reports no history, but unclear how compliant and how often he sees a physician -10 and p.r.n. if needed Opiate dependence Chronic back pain -continue home Suboxone Nicotine dependence -nicotine patch ordered Code: Full VTE prophylaxis: Lovenox Dispo: anticipate dc home in 24-48hrs can transfer out of ICU today Time Spent Managing Pts Care (In Minutes): 35
--- NOTE | 2020-04-26 11:12 | CON ---
Date of Consultation: 04/25/2020 Reason For Consultation: Admitted to Dr. Culver's service on 04/24/2020 for cellulitis on the left lo wer extremity. I saw the patient on 04/25/2020, for acute diastolic congestive heart failure. History Of Present Illness: Mr. Hope is a 59-year-old male without any previous cardiac history. He came in with left lower extremity cellulitis on 04/24/2020. He was afebrile when he came in. He wa s being hydrated and treated with antibiotics, but apparently he became hypoxic and was brought to [facility] ICU for further evaluation and treatment. The patient complained of shortness of breath, but denie d any PND, orthopnea, pedal edema, palpitation, or syncope. Past Medical History: Positive for history of drug use that has resolved. Otherwise, he does not gonzalez ve any past medical history worth mentioning from a cardiac standpoint. He has had back pains, kidne y stones, major back surgery and has had the kidney stone removal. Medications: None. Review of Systems: Negative. Social History: Positive for drug use, but stopped 3 years ago. Allergies: NONE. Family History: Noncontributory. Physical Examination: General: When I saw him, his pressure was 109/74. He was afebrile. He was in sinus rhythm. His pu lse was 83. His respiratory rate was 18. He is feeling much better. His O2 saturation was 95% on h igh-flow oxygen delivery. He had been placed on facial BiPAP when he got short of breath. His pO2 w as 57, pCO2 was 52 with pH was 7.36. HEENT: Negative. Neck: Supple. No bruit. Chest: Reveals some rales at the bases. Cardiac: Revealed a regular rhythm and rate. No murmurs, gallops, or rubs. Abdomen: Benign. Extremities: Revealed no clubbing, cyanosis, or edema. Diagnostic Data: His EKG was nonspecific. He had a white count of 13,000. His creatinine was del l. His glucose was 140. His C-reactive protein was elevated at 255. TSH was 1.17. His procalciton in is normal. COVID was negative. Chest x-ray was negative. Echocardiogram, which was done showed mild diastolic congestive heart failure. EKG was normal with nonspecific changes. He had an extremi ty venous Doppler that was negative. Chest x-ray consistent with possible bilateral pneumonia. Impression And Plan: 1.Acute diastolic congestive heart failure, improving. He has a normal ejection fraction. 2.Cellulitis. The patient's present medical regimen includes antibiotics, Lovenox, Lasix, inhalers, magnesium suppl ementation, steroids. I agree with his present regimen. I think when he goes home, he should be on a low-dose beta-breonna, salt restrictions, low-dose diuretic, and I will see him in the office down the road, and we will plan to do an outpatient stress test on him to make sure he does not have any c oronary artery disease. For now, we will continue to follow. FRITZ Voice ID: [id number] Report ID: [id number]
--- NOTE | 2020-04-26 11:18 | P.PN ---
Subjective Date of Service: 04/27/20 Chief Complaint: COPD exacerbation Subjective: Improving (Patient is doing much better he is much improved is very alert responsive cooperative complaining of a pain in the left heel) Review of Systems 10-point ROS is otherwise unremarkable Physical Examination - Vital Signs Temperature: 97.6 F Blood Pressure: 116/82 Pulse: 83 Respirations: 18 Pulse Ox (%): 93 - Physical Exam General: Alert, Oriented x3 Respiratory: Clear to auscultation bilaterally, Diminished Cardiovascular: No edema, Normal S1 S2 Assessment & Plan - Problems (Diagnosis) (1) COPD (chronic obstructive pulmonary disease) Current Visit: Yes Status: Acute Plan: P patient is currently doing much better I suspect his an exacerbation of underlying COPD change to prednisone 20 mg p.o. twice a day patient will need a bronchodilators of change him over to Dulera also recommend low-dose spironolactone possible underlying diastolic heart failure Qualifiers: COPD type: unspecified COPD Qualified Code(s): J44.9 - Chronic obstructive pulmonary disease, unspecified (2) Foot pain, left Current Visit: Yes Status: Acute Plan: Patient has been complaining of pain in his left heel worse in the morning and has resolved few min after walking a may have underlying plantar fascitis this cellulitis has improved significantly blood cultures are negative
--- NOTE | 2020-04-26 14:09 | PN ---
Date of Progress Note: 04/26/2020 Subjective: Mr. Hope was admitted initially for cellulitis, brought down to the ICU because of acute diastolic congestive heart failure, possible COPD exacerbation. He had a normal ejection fraction. He has intermittently been in atrial fibrillation this morning. When I saw him, he was in sinus rhy thm, but later in the day went into rapid atrial fibrillation, rate of 130. The case was discussed w ith Dr. Philip. We will continue his present regimen including Lasix, nebulized treatment. I will go ahead and load him up with amiodarone and put him on p.o. amiodarone. He is already on Lovenox. We will see how he does with the amiodarone. If he remains in atrial fibrillation by Tuesday, we madhu l do a cardioversion. ABIMAEL/AMY Voice ID: [id number] Report ID: [id number]
[2020-04-26] MEDS: DULERA 200/5 (MOMETASONE/FORMOTEROL) INHALER IH SCH (20:31)
[2020-04-27] MEDS: METHYLPREDNISOLONE 40 MG INJ IV SCH ×2 (00:18→08:45)
[2020-04-27] MEDS: CEFAZOLIN/SWI 2gm 2 GM/20 ML SYR IVP SCH ×2 (00:18→08:45)
[2020-04-27] MEDS ORDERED: MELATONIN 5 MG TABLET PO PRN (00:29)
[2020-04-27] MEDS: IPRATROPIUM BROM 0.5MG/2.5ML NEB SCH ×3 (02:00→13:10)
[2020-04-27] MEDS ORDERED: METOPROLOL TAR 25 MG TAB PO SCH (06:30)
[2020-04-27 06:37] LABS: Absolute Lymphocytes (CBC) 0.7 K/uL (0.7-4.9); Basophils % 0.2 % (0-1.3); Hematocrit 49.3 % (39.6-49.0); Lymphocytes % 4.9 % (15.3-44.8); MPV 7.9 fL (7.6-11.3); RBC Red Blood Cell Count 4.94 M/uL (4.33-5.43)
[2020-04-27 06:59] LABS: Magnesium 2.1 mg/dL (1.8-2.4); Potassium 4.3 mmol/L (3.5-5.1)
[2020-04-27] MEDS: NICOTINE 21 MG/PAT TD SCH (08:46)
[2020-04-27] MEDS: FUROSEMIDE 20 MG/ 2ML VIAL IV SCH (08:47)
[2020-04-27] MEDS: ENOXAPARIN 40 MG/0.4 ML SQ SCH (08:47)
[2020-04-27] MEDS: DULERA 200/5 (MOMETASONE/FORMOTEROL) INHALER IH SCH (08:48)
[2020-04-27] MEDS: Buprenorphine Hcl/Naloxone Hcl [Suboxone 2 Mg-0.5 Mg Sl Film] SL SCH ×2 (08:48→11:24)
[2020-04-27 09:46] VITALS: O2SAT 94
[2020-04-27 12:27] VITALS: BP 146/90; TEMP 97.8
--- NOTE | 2020-04-27 21:55 | P.DS ---
Admission Date: 04/24/20 Discharge Date: 04/27/20 Disposition: ROUTINE DISCHARGE Discharge Condition: FAIR Reason for Admission: COPD exacerbation Consultations: Cardiology - Dr. Wade Pulmonology - Dr. Philip Problem List Procedures: CT Head (04/24): No acute intracranial abnormality. Venous doppler (04/24): No DVT in the left lower extremity. CXR (04/24): Moderate bilateral interstitial lung opacities are present with could represent pulmonary edema or interstitial pneumonia. The heart is mildly prominent size. Thoracolumbar hardware is present. CTA Chest (04/24): No evidence of pulmonary thromboembolism. Moderate bilateral interstitial lung opacities are present likely representing interstitial pneumonia. CXR (04/25): Interstitial and alveolar opacification is present worse in the medial right base. Findings are progressive from April 24 imaging, part of which is due to lower lung volumes. Bilateral pneumonia is a primary consideration. A noninfectious failure or volume overload would be possible as well. TTE (04/25): normal LVEF: 68%, grade 1 diastolic dysfunction, decreased LV compliance; normal LV size, mitral annular calcification. aortic sclerosis. Problem List LLE cellulitis, failed outpatient therapy acute hypoxemic respiratory failure secondary to acute COPD exacerbation and bilateral interstitial pneumonia Grade 1 Diastolic Dysfunction Hypertension Chronic back pain Nicotine dependence h/o Opiate dependence Brief History of Present Illness: 59yo M, PMH: h/o opiate dependence and chronic back pain, otherwise denies any past medical history who presented to ED with significant LLE pain, redness, and swelling x1-2 weeks despite starting amoxicillin by PCP a few days prior. He also endorsed some RLE swelling "a few weeks ago" but resolved without intervention. He saw his PCP a few days prior and was started on amoxicillin and Lasix without any improvement. He denied any SOB/PLASCENCIA, orthopnea, or h/o CHF/COPD on admission. He was breathing comfortably on RA without issue. He was admitted for further treatment of his LLE cellulitis In the ED, he was noted to have a leukocytosis of 12.5, mildly elevated bicarb of 34, afebrile, hypertensive. On arrival to the ED, patient's heart rate: 80s, BP: 140/90s, SpO2: 99% on room air Hospital Course: Patient was initially admitted for treatment of his cellulitis with IV Ancef. In the evening after admission, patient became acutely hypoxemic with altered mental status (less alert, confused). Further workup was done (CXR, ABG, Labs) and patient was found to moderate b/l insterstitial lung opacities. pH / pCO2 / pO2 / HCO3 / FiO2 (7.36 / 52.2 / 57.5 /28.4 / 50%) He was treated with IV lasix, BIPAP, and transferred to ICU for further monitoring. He was transitioned to high flow nasal cannula, started on IV Solumedrol and eventually weaned back to down to 3L NC within 24 hrs. An echocardiogram was performed due to concern for possible new onset acute CHF whilch showed grade 1 diastolic dysfunction. Cardiology was consulted who agreed with continued diuresis with lasix, but this was likely due to pulmonary etiology. Pulmonology was consulted who felt this was likely an acute exacerbation of u nderlying COPD. His LLE cellulitis (erythema, tenderness) significantly improved on IV Ancef. Blood cultures drawn in ED remained negative. On day of discharge, patient was feeling much better, LLE pain was nearly resolved, breathing comfortably on 2-3 L NC, and was anxious to get back home. He was noted to drop to 84% with ambulation on RA, so he was discharged home with home oxygen. He will follow up with PCP within 1 week, Pulmonology and Cardiology in the next 2-3 weeks. Medications on discharge: Keflex - 7 days Prednisone - 20mg BID x 4 days Albuterol inhaler Dulera (received as inpatient) Vital Signs/Physical Exam: Temp Pulse Resp BP Pulse Ox 97.8 F 89 20 146/90 H 97 04/27/20 12:00 04/27/20 12:00 04/27/20 12:00 04/27/20 12:00 04/27/20 12:00 General: Alert, In no apparent distress, Oriented x3 HEENT: Mucous membr. moist/pink, Sclerae nonicteric Neck: JVD not distended, No LAD Respiratory: Diminished (at bases bilaterally, with mild expiratory wheeze. on 2L NC) Cardiovascular: No edema (trace LLE just above ankle), Regular rate/rhythm, Normal S1 S2 Gastrointestinal: Soft and benign, Non-distended, No tenderness Musculoskeletal: No erythema, Tenderness (mild on b/l ankle of LLE) Integumentary: No rashes, No breakdown, Other (varicose veins on b/l extremities) Neurological: Normal speech, Normal affect Laboratory Data at Discharge: WBC 15.2 K/uL (4.3-10.9) H 04/27/20 05:47 Hgb 16.3 g/dL (13.6-17.9) 04/27/20 05:47 Hct 49.3 % (39.6-49.0) H 04/27/20 05:47 Plt Count 350 K/uL (152-406) D 04/27/20 05:47 Sodium 132 mmol/L (136-145) L 04/27/20 05:47 Potassium 4.3 mmol/L (3.5-5.1) 04/27/20 05:47 BUN 40 mg/dL (7-18) H 04/27/20 05:47 Creatinine 0.90 mg/dL (0.55-1.3) 04/27/20 05:47 Glucose 139 mg/dL (74-106) H 04/27/20 05:47 Phosphorus 2.7 mg/dL (2.5-4.9) 04/25/20 05:43 Magnesium 2.1 mg/dL (1.8-2.4) 04/27/20 05:47 Total Bilirubin 0.5 mg/dL (0.2-1.0) 04/26/20 05:18 AST 8 U/L (15-37) L 04/26/20 05:18 ALT 11 U/L (12-78) L 04/26/20 05:18 Alkaline Phosphatase 83 U/L (45-117) 04/26/20 05:18 Troponin I < 0.02 ng/mL (0.0-0.045) 04/25/20 00:05 Home Medications: Buprenorphine HCl/Naloxone HCl [Suboxone 2 mg-0.5 mg Sl Film] 1 each SL DAILY 04/24/20 Albuterol Inhaler [Ventolin Inhaler*] 2 puff IH Q6H PRN #1 hfa.aer.ad 04/27/20 Cephalexin [Keflex] 1 tab PO Q6HR 7 Days #28 cap 04/27/20 Furosemide [Lasix] 1 tab PO DAILY #30 tablet 04/27/20 Mometasone/Formoterol [Dulera 200 Mcg/5 Mcg Inhaler] 2 puff IH BID inhaler 04/27/20 predniSONE [Prednisone] 20 mg PO BID 4 Days #8 tablet 04/27/20 New Medications: Cephalexin [Keflex] 1 tab PO Q6HR 7 Days #28 cap Furosemide [Lasix] 1 tab PO DAILY #30 tablet predniSONE [Prednisone] 20 mg PO BID 4 Days #8 tablet Albuterol Inhaler [Ventolin Inhaler*] 2 puff IH Q6H PRN #1 hfa.aer.ad PRN Reason: Shortness Of Breath Patient Discharge Instructions: Follow up with PCP in 1 week. Follow up with Cardiology, Dr. Wade in 2-3 weeks. Follow up with Pulmonology, Dr. Philip in 2-3 weeks. Use oxygen at all times until you follow up with your physicians. Do not smoke while using oxygen Diet: Regular Activity: Ad dora Followup: Blu Philip MD [ACTIVE - CAN ADMIT] - Virgil Wade MD [ACTIVE - CAN ADMIT] - Time spent managing pt's care (in minutes): 40
--- NOTE | 2020-04-28 10:25 | PN ---
Date of Progress Note: 04/27/2020 Mr. Hope has been treated in the hospital with cellulitis, COPD exacerbation, acute mild diastolic co ngestive heart failure. Overnight, he has done well. He is in sinus rhythm to sinus arrhythmia and occasional sinus bradycardia episode. Not a great candidate for metoprolol. He is still getting ant ibiotics for the cellulitis. He is still getting a low dose Lasix for his congestive heart failure. He remains slightly hypoxic off oxygen and I think there is a plan by Dr. Culver to send him home on home O2. I will definitely make sure that I see him in the office in the near future. While I see h im, a Lexiscan has been ordered to make sure we are not dealing with coronary artery disease as well. ABIMAEL/AMY Voice ID: [id number] Report ID: [id number]
--- OUTSIDE RECORDS SUMMARY | 2020-04-30 15:16 | XMS REPORT | Continuity of Care Document ---
:1960 Author Organization [employer] Care Team Providers Name Role Phone [employer] Unavailable Un available Problems Problem Status Onset Classification Date Comments Sourc e Date Reported DECONDITION Active 10/18/19 [facility] 19 History of - Resolved Problem 10/07/2019 [facility] (context-depend ent category) OTHER MALAISE Active [facility] Medications No Data Provided for This Section Allergies, Adverse Reactions, Alerts No Known Medication Allergies Immunizations No Data Provided for This Section Results No Data Provided for This Section Pathology Reports No Data Provided for This Section Diagnostic Reports No Data Provided for This Section Consultation Notes No Data Provided for This Section Discharge Summaries No Data Provided for This Section History and Physicals No Data Provided for This Section Vital Signs Vital Sign Value Date Comments Source Systolic (mm Hg) 143 09/07/2019 [facility] Diastolic (mm Hg) 78 09/07/2019 [facility] Respitory Rate 18 09/07/2019 [facility] Temperature Oral (F) 97.5 F 09/07/2019 [facility] Height 170.18 cm 09/07/2019 [facility] Weight 99.545 09/07/2019 [facility] BMI Calculated 34.37 09/07/2019 [facility] Encounters Location Location Encounter Encounter Reason Attending ADM [place] Stat Source Details Type Number For Provider Date Date Visit Outpatient [id number] Yung 09/07 [facility] Outpatient [id number] Yung 09/07 09/08 [facility] [place] Out[facility] [id number] Yung 10/04 [facility] Ambulatory [id number] Yung 10/04 10/04 [facility] [place] Procedures Procedure Code Date Perfomer Comments Source Laparoscopic [id number] [facility] adjustable gastric Group banding Assessment and Plan No Data Provided for This Section Plan of Care No Data Provided for This Section Social History Social History Date Source Social History TypeResponse 09/07/2019 [facility] Smoking Status Current some day smoker; Type: Cigarette s; Exposure to Tobacco Smoke None; Cigarette Smoking Last 365 Days Yes; Reg Smoking Cessation Counseling No entered on: 09/07/19 Family History No Data Provided for This Section Advance Directives No Data Provided for This Section Functional Status No Data Provided for This Section
--- OUTSIDE RECORDS SUMMARY | 2020-04-30 15:16 | XMS REPORT | Clinical Summary ---
:1960 Author Organization [facility] Address [address] [place] [address] Care Team Providers Name Role Phone Hema De La Rosa DO Primary Care Provider Allergies No Known Active Allergies Medications Medication Sig Dispensed Refills Start Date End Date Status cyclobenzaprine Take 10 mg by 0 Active (FLEXERIL) 10 mg tablet mouth daily. cholecalciferol, vitamin Take 1,000 0 Active D3, (VITAMIN D3) 1,000 Units by mouth unit tablet daily. ascorbic acid, vitamin C, Take 500 mg by 0 Active (VITAMIN C) 500 MG tablet mouth daily. testosterone cypionate every 30 0 10/01/2018 Active (DEPOTESTOTERONE (thirty) days. CYPIONATE) 200 mg/mL injection 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 Scoliosis due to degenerative disease of spine in adul t patient 08/21/2018 Lumbar stenosis with neurogenic claudication 9 Encounters Date Type Specialty Care Team Description 12/05/2019 Hospital Encounter Radiology Huseyin Childs, Chron ic right sacroiliac MD pain 12/05/2019 Travel 11/30/2019 Travel 11/30/2019 Telephone Radiology Marianna Goyal RN 11/22/2019 Travel 10/22/2019 Orders Only Neurosurgery Stephanie Law, Caroline righ t sacroiliac MA pain (Primary D x) 10/08/2019 Office Visit Neurosurgery Huseyin Childs, S/P lumbar fusion (Primary Dx) 10/08/2019 Hospital Encounter Radiology Huseyin Childs, Scoli osis (and kyphoscoliosis), idiopathic; Scoliosis due t o degenerative disease of spine in adult patient; Scoliosis of th oracolumbar region due to degenerative disease of spine in adult 10/08/2019 Hospital Encounter Radiology Huseyin Childs, Scoli osis (and kyphoscoliosis), idiopathic; Scoliosis due t o degenerative disease of spine in adult patient; Scoliosis of th oracolumbar region due to degenerative disease of spine in adult 10/08/2019 Hospital Encounter Radiology Huseyin Childs, Gemini osis (and kyphoscoliosis), idiopathic; Scoliosis due t o degenerative disease of spine in adult patient; Scoliosis of th oracolumbar region due to degenerative disease of spine in adult 10/08/2019 Hospital Encounter Radiology Huseyin Childs, Lumba r pain 10/08/2019 Hospital Encounter Radiology Huseyin Childs, Thora cic spine pain 10/08/2019 Travel after 04/30/2019 Surgical History Surgery Date Site/Laterality Comments LUMBAR LAMINECTOMY 07/25/2003 - 07/24/2004 REPAIR, TENDON, BICEPS 07/25/2001 - Left 07/24/2002 LAPAROSCOPIC GASTRIC 07/25/2012 - BANDING 07/24/2013 ROTATOR CUFF REPAIR 07/25/2004 - Right 07/24/2005 CERVICAL DISCECTOMY 07/25/2005 - 07/24/2006 INGUINAL HERNIA REPAIR 07/25/2015 - Left 07/24/2016 FUSION, ANTERIOR SPINAL 10/17/2018 Spine Lumbar/N/A Procedu re: L5-S1 ANTERIOR COLUMN, LUMBAR, ANTERIOR LUMBAR INTERBODY FUSION W/ APPROACH INSTRUMETATION, L2-L5, LATERAL LUMBAR I NTERBODY FUSION W/ INSTRU MENTATION W/ EMG'S, SSEP'S , AND MEP'S; Surgeon: Huseyin Childs MD; Lo cation: [facility]; Se rvice: Neurosurgery; L aterality: N/A; Medical devices from this surgery are in t he Implants section . FUSION, SPINE, THORACIC, 10/20/2018 Spine Thoracic/N/A Proc edure: T9-S1 USING POSTERIOR THORACOLUMBAR PO STERIOR TECHNIQUE FUSION W/ INSTRU MENTATION, MULTI-LEVEL MIRTA H-LUNA OSTEOTOMIES, EMG 'S, SSEP'S, MEP'S MO NITORING; Surgeon: Huseyin Childs MD; Location: [facility]; Service: Neurosurgery; L aterality: N/A; Medical devices from this surgery are in t he Implants section . Medical History Medical History Date Comments Wears glasses Exercises 5 times per week elliptical 5d /wk x 30 mins; no chest pain or sob on stair s but has difficulty with stairs due to b ack pain Arthritis Scoliosis DDD (degenerative disc disease), lumbar Wears partial dentures upper and lower Chronic pain History of drug abuse (HCC) quit 2008 Family History Medical History Relation Name Comments Lung cancer Mother Relation Name Status Comments Father Bile duct cancer Mother Social History Tobacco Use Types Packs/Day Years Used Date Former Smoker 2 Quit: 07/2018 Smokeless Tobacco: Never Used Alcohol Use Drinks/Week oz/Week Comments Yes social Alcohol Habits Answer Date Recorded How often do you have a drink containing alcohol? Never 08/18/2018 How many drinks containing alcohol do you have on a typical Not asked day when you are drinking? How often do you have six or more drinks on one occasion? No t asked Sex Assigned at Date Recorded Not on file Last Filed Vital Signs Vital Sign Reading Time Taken Comments Blood Pressure 114/79 12/05/2019 10:00 AM CDT Pulse 69 12/05/2019 10:15 AM CDT Temperature 36.4 C (97.6 F) 12/05/2019 9:55 AM CDT Respiratory Rate 18 12/05/2019 10:00 AM CDT Oxygen Saturation 95% 12/05/2019 10:15 AM CDT Inhaled Oxygen Concentration - - Weight - - Height - - Body Mass Index - - Plan of Treatment Health Maintenance Due Date Last Done Comments COLONOSCOPY SCREENING 2008 SHINGLES VACCINES (#1) 2008 INFLUENZA VACCINE 02/23/2020 06/24/2018 Implants Implanted Type Area Director Of Materials Device Shelf Model / Identifier Expiration Serial / Lot Date System Spine Selnt For Dural Selng Exact 5ml Duraseal - [id number] Cardiovascular N/A: INTEGRA 12/23/[id number] / Implanted: 10/20/2018 at [facility] (Quantity not on file) Tao escobar N/A LIFESCIENCE / NEURO [id number] System Spine Selnt For Dural Selng Exact 5ml Duraseal - [id number] Cardiovascular N/A: INTEGRA 12/23/[id number] / Implanted: Qty: 1 on 10/20/2018 by Huseyin Childs MD at [facility] Implants N/A LIFESCIENCE / NEURO [id number] Bone Matriz Osteocel Pro Large - [id number] - [id number] Human T issue N/A: NUVASIVE 06/02/2023 [id number] / Implanted: Qty: 1 on 10/17/2018 by Huseyin hCilds MD at [facility] Implants Spine [id number] / Lumbar LOT NA Bone Matriz Osteocel Pro Large - [id number] - [id number] Human T issue N/A: NUVASIVE 03/05/2023 [id number] / Implanted: Qty: 1 on 10/17/2018 by Huseyin Childs MD at [facility] Implants Spine [id number] / Lumbar LOT NA Kit Bone Grft Lmbr Tprd 8ml Xxl Infuse - [id number] Human Tissue N/ A: MEDTRONIC 12/23/2019 [id number] / Implanted: Qty: 1 on 10/20/2018 by Huseyin Childs MD at [facility] Implants N/A SPINAL AND / BIOLOGICS [id number] Paste Dbm Easy-Dispensing Wdmth Syr 10ml [address] - [id number] - [id number] Human Tissue N/A: MEDTRONIC 08/23/2020 [id number] / Implanted: Qty: 1 on 10/20/2018 by Huseyin Childs MD at [facility] Implants N/A SPINAL GRAFT [id number] / TECHNOLOGIES [id number] Paste Dbm Easy-Dispensing Wdmth Syr 10ml [address] - [id number] - [id number] Human Tissue N/A: MEDTRONIC 08/23/2020 [id number] / Implanted: Qty: 1 on 10/20/2018 by Huseyin Childs MD at [facility] Implants N/A SPINAL GRAFT [id number] / TECHNOLOGIES [id number] Bone Cancellous 30ml Chips - [id number] - [id number] Human Tiss ue N/A: RTI SURGICAL 06/19/2023 [id number] / Implanted: Qty: 1 on 10/20/2018 by Huseyin Childs MD at [facility] Implants N/A INC. [id number] / [id number] Bone Cancellous 30ml Chips - [id number] - [id number] Human Tiss ue N/A: RTI SURGICAL 06/19/2023 [id number] / Implanted: Qty: 1 on 10/20/2018 by Huseyin Childs MD at [facility] Implants N/A INC. [id number] / [id number] Matrix Dural Duragen Plus 1x3in Regnrtn - [id number] Human Tissue N/A : INTEGRA 05/24/2021 [id number] / Implanted: Qty: 1 on 10/20/2018 by Huseyin Childs MD at [facility] Implants N/A LIFESCIENCE / NEURO [id number] Base Ti Hyperlordotic Imp, [id number] - [id number] IPM IMPLANT N/A: NUVASIVE [id number] / Implanted: 10/17/2018 at [facility] (Quantity not on file) DEV ICES Spine SPINE / Lumbar Base [place], 5.0x17.5mm Ike - [id number] IPM IMPLANT N/A: NUVASIVE [id number] / Implanted: 10/17/2018 at [facility] (Quantity not on file) DEV ICES Spine SPINE / Lumbar Modulus Xlw, [id number] 10deg - [id number] IPM IMPLANT N/A: NUZAIDI VE 03/21/2022 [id number] / Implanted: 10/17/2018 at [facility] (Quantity not on file) DEVICES N/A SPINE / [id number] Coroent Xl Coronal Tapered Implants, Peek Xl(Ct) - 10x [id number] - [id number] IPM IMPLANT N/A: NUVASIVE 06/24/2023 [id number] / Implanted: 10/17/2018 at [facility] (Quantity not on file) DEV ICES Spine SPINE / Lumbar N/A Unid Patient Specific Lele 5.5 - [id number] IPM IMPLANT N/A: MEDIC SANDEEP [id number] / Implanted: Qty: 1 on 10/17/2018 by Huseyin Childs MD at [facility] DEVICES Spine INT'L / Lumbar Unid Patient Specific Lele 5.5 - [id number] IPM IMPLANT N/A: MED ICREA 01/20/2019 [id number] / Implanted: 10/20/2018 at [facility] (Quantity not on file) DEVICES N/A INT'L / [id number] Unid Patient Specific Lele 5.5 - [id number] [id number] IMPLANT N/A: MED ICREA 01/20/2019 [id number] / Implanted: 10/20/2018 at [facility] (Quantity not on file) DEVICES N/A INT'L / LOTNA Unid Patient Specific Lele 5.5 - [id number] IPM IMPLANT N/A: MED ICREA 01/20/2019 [id number] / Implanted: 10/20/2018 at [facility] (Quantity not on file) DEVICES N/A INT'L / LOTNA Screw [id number] 5.5/6.0 Drmas 7.5x50 - [id number] IPM IMPLANT N/A: MEDTRONIC [id number] / Implanted: Qty: 1 on 10/20/2018 by Huseyin Childs MD at [facility] DEVICES N/A SOFAMOR DANEK / Screw [id number] 5.5 Mas 7.5x100 Cc - [id number] IPM IMPLANT N/A: MEDTRONIC [id number] / Implanted: Qty: 1 on 10/20/2018 by Huseyin Childs MD at [facility] DEVICES N/A SOFAMOR DANEK / Screw [id number] Bs Cnmas 7.5x90 T/C - [id number] IPM IMPLANT N/A: MEDTRONIC [id number] / Implanted: Qty: 1 on 10/20/2018 by Huseyin Childs MD at [facility] DEVICES N/A SOFAMOR DANEK / Screw [id number] 5.5 Mas 8.5x50 Cc - [id number] IPM IMPLANT N/A: MEDTRONIC [id number] / Implanted: Qty: 1 on 10/20/2018 by Huseyin Childs MD at [facility] DEVICES N/A SOFAMOR DANEK / Screw [id number] 5.5 Mas 8.5x45 Cc - [id number] IPM IMPLANT N/A: MEDTRONIC [id number] / Implanted: Qty: 1 on 10/20/2018 by Huseyin Childs MD at [facility] DEVICES N/A SOFAMOR DANEK / Screw [id number] 5.5 Mas 8.5x40 Cc - [id number] IPM IMPLANT N/A: MEDTRONIC [id number] / Implanted: Qty: 1 on 10/20/2018 by Huseyin Chidls MD at [facility] DEVICES N/A SOFAMOR DANEK / Screw [id number] 5.5 Mas 6.5x55 Cc - [id number] IPM IMPLANT N/A: MEDTRONIC [id number] / Implanted: Qty: 3 on 10/20/2018 by Huseyin Childs MD at [facility] DEVICES N/A SOFAMOR DANEK / Screw [id number] 5.5 Mas 7.5x50 Cc - [id number] IPM IMPLANT N/A: MEDTRONIC [id number] / Implanted: Qty: 1 on 10/20/2018 by Huseyin Childs MD at [facility] DEVICES N/A SOFAMOR DANEK / Screw [id number] 5.5 Mas 7.5x45 Cc - [id number] IPM IMPLANT N/A: MEDTRONIC [id number] / Implanted: Qty: 1 on 10/20/2018 by Huseyin Childs MD at [facility] DEVICES N/A SOFAMOR DANEK / Screw [id number] 5.5 Mas 7.5x45 Cc - [id number] IPM IMPLANT N/A: MEDTRONIC [id number] / Implanted: Qty: 2 on 10/20/2018 by Huseyin Childs MD at [facility] DEVICES N/A SOFAMOR DANEK / Screw [id number] 5.5/6.0 Drmas 7.5x50 - [id number] IPM IMPLANT N/A: MEDTRONIC [id number] / Implanted: Qty: 1 on 10/20/2018 by Huseyin Childs MD at [facility] DEVICES N/A SOFAMOR DANEK / Screw [id number] 5.5 Mas 7.5x55 Cc - [id number] IPM IMPLANT N/A: MEDTRONIC [id number] / Implanted: Qty: 1 on 10/20/2018 by Huseyin Childs MD at [facility] DEVICES N/A SOFAMOR DANEK / Screw [id number] 5.5 Mas 7.5x55 Cc - [id number] IPM IMPLANT N/A: MEDTRONIC [id number] / Implanted: Qty: 1 on 10/20/2018 by Huseyin Childs MD at [facility] DEVICES N/A SOFAMOR DANEK / Screw [id number] 5.5 Mas 6.5x50 Cc - [id number] IPM IMPLANT N/A: MEDTRONIC [id number] / Implanted: Qty: 1 on 10/20/2018 by Huseyin Childs MD at [facility] DEVICES N/A SOFAMOR DANEK / Screw [id number] 5.5 Mas 6.5x45 Cc - [id number] IPM IMPLANT N/A: MEDTRONIC [id number] / Implanted: Qty: 5 on 10/20/2018 by Huseyin Childs MD at [facility] DEVICES N/A SOFAMOR DANEK / Screw [id number] 5.5 Mas 5.5x50 Cc - [id number] IPM IMPLANT N/A: MEDTRONIC [id number] / Implanted: Qty: 1 on 10/20/2018 by Huseyin Childs MD at [facility] DEVICES N/A SOFAMOR DANEK / Screw [id number] 5.5 Mas 5.5x45 Cc - [id number] IPM IMPLANT N/A: MEDTRONIC [id number] / Implanted: Qty: 1 on 10/20/2018 by Huseyin Childs MD at [facility] DEVICES N/A SOFAMOR DANEK / Lele [id number] 5.8wrkxydmuygoxu272fhrdvw - [id number] IPM IMPLAN T N/A: MEDTRONIC [id number] / Implanted: Qty: 1 on 10/20/2018 by Huseyin Childs MD at [facility] DEVICES N/A SOFAMOR DANEK / Set Screw [id number] 5.5 Ti Ns Brk Off - [id number] Orthopedic N/A: MEDTRONIC [id number] / Implanted: Qty: 24 on 10/20/2018 by Huseyin Childs M D at [facility] Trauma Implants N/A SOFAMOR DANEK / Kit Dil M5 Xlif - [id number] Spinal Implants N/A: NUVASIVE [id number] / Implanted: 10/17/2018 at [facility] (Quantity not on file) N/A / Connector Lele Spinal Ti 5.5x5.5mm Strl - [id number] Spinal Impla nts N/A: MEDTRONIC [id number] / Implanted: Qty: 1 on 10/20/2018 by Huseyin Childs MD at [facility] N/A SPINAL AND / BIOLOGICS Screw Set Std Ti 1/4in 32mm - [id number] Spinal Implants N/A: MED TRONIC [id number] / Implanted: Qty: 2 on 10/20/2018 by Huseyin Childs MD at [facility] N/A SPINAL AND / BIOLOGICS Procedures Procedure Name Priority Date/Time Associated Diagnosis Comme nts CT GUIDED STAT 12/05/2019 10:08 Chronic right Results fo r this INJECTION AM CDT sacroiliac pain procedure ar e in the results section. XR THORACIC SPINE Routine 10/08/2019 2:01 Scoliosis (and Resu lts for this COMPLETE 4+ VW PM CDT kyphoscoliosis), procedure are in idiopathic the results Scoliosis due to section. degenerative disease of spine in adult patient Scoliosis of thoracolumbar region due to degenerative disease of spine in adult XR SPINE SCOLIOSIS Routine 10/08/2019 2:01 Scoliosis (and Res ults for this 2-3 VIEWS PM CDT kyphoscoliosis), procedure a re in idiopathic the results Scoliosis due to section. degenerative disease of spine in adult patient Scoliosis of thoracolumbar region due to degenerative disease of spine in adult XR LUMBAR SPINE AP Routine 10/08/2019 2:01 Scoliosis (and Res ults for this LATERAL FLEXION PM CDT kyphoscoliosis), procedu re are in AND EXTENSION idiopathic the results Scoliosis due to section. degenerative disease of spine in adult patient Scoliosis of thoracolumbar region due to degenerative disease of spine in adult CT THORACIC SPINE Routine 10/08/2019 1:43 Thoracic spine pain Results for this WO CONTRAST PM CDT procedure are i n the results section. CT LUMBAR SPINE WO Routine 10/08/2019 1:43 Lumbar pain Resul ts for this CONTRAST PM CDT procedure are i n the results section. after 04/30/[address] Guided Injection (12/05/2019 10:08 AM CDT) Specimen Narrative Performed At EXAMINATION: CT GUIDED INJECTION [facility] Procedure: CT-guided right sacroiliac arian int block CLINICAL HISTORY: M53.3 Sacrococcygeal disorders n ot elsewhere classified, G89.29 Other chronic pain, R T SACROILIAC PAIN Technique: Informed consent was obtained. The patient was placed on the CT table in prone posi tion. The right sacroiliac joint region was prepped and draped in alyson dard sterile fashion. Sedation was administered by intravenous injection of adequate amounts of Versed and fentanyl. Continuous monitoring and nish rding of the patients vital signs was carried out under my direct s upervision during the procedure, and subsequently in the recovery room until discharge. Total s edation time was 20 minutes. The right sacroiliac joint was localized with CT fl uoroscopy and the skin over that area was infiltrated with the 2% buffer ed lidocaine. Utilizing CT fluoroscopy 20-gauge spinal needle was advanced percutaneously into the posterior aspect of the lower right sacroiliac joint space. Contrast injection demo nstrates proper positioning of the tip of the needle in the joint cavi ty. Subsequently 80 mg of Depo-Medrol and 3 cc of Marcaine 0.75% was in jected into the joint space. The patient tolerated the procedure well without immediate medicat ions. Total radiation exposure/total exam DLP 394 mGy. Total sedation time was minutes. IMPRESSION: Successful uncomplicated CT guided the right sacroil iac joint block with good clinical response. [facility]-[id number] Procedure Note [facility], Radiology Results Incoming - 12/05/2019 2:36 PM CDT EXAMINATION: CT GUIDED INJECTION Procedure: CT-guided right sacroiliac arian int block CLINICAL HISTORY: M53.3 Sacrococcygeal disorders not elsewhere classified, G89.29 Other chronic pain, RT SACROILIAC PAIN Technique: Informed consent was obtained. The patient was placed on the CT table in prone position. The right sacroiliac joint region was prepped and draped in standard sterile fashion. Sedation was administered by intravenous injection of adequate amounts of Versed and fentanyl. Continuous monitoring and recording of the patients vital signs was carried out under my direct supervision during the procedure, and subsequently in the recovery room until discharge. Total se dation time was 20 minutes. The right sacroiliac joint was localize d with CT fluoroscopy and the skin over that area was infiltrated with the 2% buffered lidocaine. Utilizing CT fluoroscopy 20-gauge spinal needle was advanced percutaneously into the posterior aspect of the lower right sacroiliac joint space. Contrast injection demonstrates proper positioning of the tip of the needle in the joint cavity. Subsequently 80 mg of Depo-Medrol and 3 cc of Marcaine 0.75% was injected into the joint space. The patient tolerated the procedure well without immediate medicat ions. Total radiation exposure/total exam DLP 394 mGy. Total sedation time was minutes. IMPRESSION: Successful uncomplicated CT guided the right sacroiliac joint block with good clinical response. [facility]-[id number] Performing Organization Address City/State/ZIP Code Phon e Number [facility] [id number] [place] [address] XR Thoracic Spine Complete 4+ Vw (10/08/2019 2:01 PM CDT) Specimen Narrative Performed At EXAMINATION: XR THORACIC SPINE COMPLET E 4 VW [facility] NUMBER OF VIEWS: 6 CLINICAL HISTORY: M41.20 Other idiopathic scoliosis site unspecified, M41.50 Other secondary scol iosis site unspecified, scolio COMPARISON: None. FINDINGS: On the neutral frontal view there is mild curvature o f the thoracic spine convex towards the right which is almost complet berenice reduced on the bending right view and mildly accentuate d on the bending left view. There are postop changes with bilateral pedicle screw and vertical lele internal fixation devices extending from the T9 level inferiorly to the lumbar spine. There is moderate to marked thoracic spondylosis and degenerative change in the discs primarily at the mid and lower thoracic levels. There is no definite fracture demonstrat ed. IMPRESSION: Scoliosis, spondylosis and postoperative changes. [id number] Procedure Note Interface, Radiology Results Incoming - 10/08/2019 2:14 PM CDT EXAMINATION: XR THORACIC SPINE COMPLETE 4 VW NUMBER OF VIEWS: 6 CLINICAL HISTORY: M41.20 Other idiopath ic scoliosis site unspecified, M41.50 Other secondary scoliosis site unspecified, scolio COMPARISON: None. FINDINGS: On the neutral frontal view there is mi ld curvature of the thoracic spine convex towards the right which is almost completely reduced on the bending right view and mildly accentuated on the bending left view. There are postop changes with bilateral pedicle screw and vertical lele internal fixation devices extending from the T9 level inferiorly to the lumbar spine. There is moderate to marked thoracic sp ondylosis and degenerative change in the discs primarily at the mid and lower thoracic levels. There is no definite fracture demonstrat ed. IMPRESSION: Scoliosis, spondylosis and postoperative changes. [id number] Performing Organization Address City/[facility]/ZIP Code Phon e Number [facility] [id number] [place] [address] XR Spine Scoliosos 2-3 Views (10/08/2019 2:01 PM CDT) Specimen Narrative Performed At EXAMINATION: XR SPINE SCOLIOSIS 2-3 EWS HM [facility] CLINICAL HISTORY: M41.20 Other idiopathic scoliosis site unspecified, M41.50 Other secondary scol iosis site unspecified, scolio COMPARISON: Scoliosis x-ray dated February 14, 2019 Frontal and lateral views of the entire spine was perf ormed per scoliosis protocol. IMPRESSION: There is 20 degrees rightward curvature at T5. There i s 26 degrees leftward curvature at L3-4. Findings are slightly impr janes from the prior exam. Fusion hardware is again noted from T10 th rough the sacrum. There is some 7.5 cm rightward coronal b alance which is grossly stable. There is 3.5 cm positive sagi ttal balance. There was 3.3 cm negative sagittal balance on prior ex am as patient was leaning backwards with a more normal-gladys earing postural today's imaging. [id number] Procedure Note Hm Interface, Radiology Results Incoming - 10/08/2019 3:20 PM CDT EXAMINATION: XR SPINE SCOLIOSIS 2-3 VIEWS CLINICAL HISTORY: M41.20 Other idiopath ic scoliosis site unspecified, M41.50 Other secondary scoliosis site unspecified, scolio COMPARISON: Scoliosis x-ray dated February 14, 2019 Frontal and lateral views of the entire spine was performed per scoliosis protocol. IMPRESSION: There is 20 degrees rightward curvature at T5. There is 26 degrees leftward curvature at L3-4. Findings are slightly improved from the prior exam. Fusion hardware is again noted from T10 through the sacrum. There is some 7.5 cm rightward coronal balance which is grossly stable. There is 3.5 cm positive sagittal balance. There was 3.3 cm negative sagittal balance on prior exam as patient was leaning backwards with a more normal-appearing postural today's imaging. [facility]-[id number] Performing Organization Address City/[facility]/ZIP Code Phon e Number [facility] [id number] [place] [address] XR Lumbar Spine Ap Lateral Flexion And Extension (10/08/2019 2:01 PM CDT) Specimen Narrative Performed At EXAMINATION: Lateral neutral, flexion-extension views; AP view of the [facility] lumbar spine in the standing position. CLINICAL HISTORY: M41.20 Other idiopathic scoliosis site unspecified, M41.50 Other secondary scoliosis site unspecified, scoli COMPARISON: Lumbar spine x-rays from [facility] 2018. FINDINGS: There are relatively stable areas of posterior fusion from the lower thoracic region into the sacroiliac regions. There are relatively stable areas of anterior fusion L5-S1, L4-5 and L3-4. The v ertebral body and disc space height and alignment and degenerative changes are relatively stable. There are no areas of new lucency in the bone surrounding the hardware or disc s paces. There is no definite evidence of acute fracture of the screws or v ertical rods although overlying structures obscure so me details. The posterior bone density fusi on is more dense in some areas. IMPRESSION: Increased bone density in the posterior element region consistent with more fusion compared to prior exam. Othe rwise no significant changes. [facility]-[id number] Procedure Note Hm Interface, Radiology Results Incoming - 10/08/2019 3:35 PM CDT EXAMINATION: Lateral neutral, flexion-extension views; AP view of the lumbar spine in the standing position. CLINICAL HISTORY: M41.20 Other idiopathi c scoliosis site unspecified, M41.50 Other secondary scoliosis site unspecified, scoli COMPARISON: Lumbar spine x-rays from [facility] 2018. FINDINGS: There are relatively stable areas of pos terior fusion from the lower thoracic region into the sacroiliac regions. There are relatively stable areas of anterior fusion L5-S1, L4-5 and L3-4. The vertebral body and disc space height and alignment and degenerative changes are relatively stab le. There are no areas of new lucency in the bone surrounding the hardware or disc spaces. There is no definite evidence of acute fracture of the screws or vertical rods although overlying structures obscure so me details. The posterior bone density fusi on is more dense in some areas. IMPRESSION: Increased bone density in the posterior element region consistent with more fusion compared to prior exam. Otherwise no significant changes. [facility]-[id number] Performing Organization Address City/State/ZIP Code Phon e Number [facility] [id number] [place] [address] CT Thoracic Spine Wo Contrast (10/08/2019 1:43 PM CDT) Specimen Narrative Performed At EXAMINATION: CT THORACIC SPINE WO CONT RAST HM [facility] CLINICAL HISTORY: M54.6 Pain in thorac ic spine, thoracic pain COMPARISON: None. TECHNIQUE: Axial helical CT images throughout the THORACIC spin e were performed without contrast. Sagittal and coronal reformatted i mages were generated. CT scans are performed using radiation dose reduction techniques. Technical factors are evaluated and adjusted to ensure appropriate moderation of exposure. Automated dose management engineer nology is applied to adjust radiation exposure while achie ving a highly diagnostic quality image. FINDINGS: Posterior element fixation with pedicle screws, interc onnecting rods bone graft starts at T10 extends into the lumbar area. The lumbar fluid collection posterior to the posterior paraspinal soft tissues extends up to the level of T8-11-12 and a smaller than in the lumbar spine. There is narrowing of the disc spaces at T8-9 and T9-1 0. There is dorsal spondylotic changes with ligamentum flavum thickening throughout the upper lumbar spine. There is a chronic partially calcified moderate-sized right paracentral protrusion at T7-8 with impingement on the thecal sac and the right T7 nerve root. There is a fairly large left paracentral calcified dis c protrusion at T8-9 with impingement on the left T8 ner ve root There is annular bulging and spondylotic spinal canal stenosis at T9-10 with probable cord flattening. IMPRESSION: Postoperative changes of thoracolumbar f usion starting from T10. Multilevel thoracic disc protrusions as discussed abov e with spinal canal stenosis at T9-10. No acute compression fracture. [facility]-[id number] Procedure Note Interface, Radiology Results Incoming - 10/08/2019 2:30 PM CDT EXAMINATION: CT THORACIC SPINE WO CONTRAST CLINICAL HISTORY: M54.6 Pain in thoraci c spine, thoracic pain COMPARISON: None. TECHNIQUE: Axial helical CT images throughout the THORACIC spine were performed without contrast. Sagittal and coronal reformatted images were generated. CT scans are performed using radiation dose reduction techniques. Technical factors are evaluated and adjusted to ensure appropriate moderation of exposure. Automated dose management technology is applied to adjust radiation exposure while achievin g a highly diagnostic quality image. FINDINGS: Posterior element fixation with pedicle screws, interconnecting rods bone graft starts at T10 extends into the lumbar area. The lumbar fluid collection posterior to the posterior paraspinal soft tissues extends up to the level of T8-11-12 and a smaller than in the lumbar spine. There is narrowing of the disc spaces at T8-9 and T9-10. There is dorsal spondylotic changes with ligamentum flavum thickening throughout the upper lumbar spine. There is a chronic partially calcified m oderate-sized right paracentral protrusion at T7-8 with impingement on the thecal sac and the right T7 nerve root. There is a fairly large left paracentral calcified disc protrusion at T8-9 with impingement on the left T8 nerve root There is annular bulging and spondylotic spinal canal stenosis at T9-10 with probable cord flattening. IMPRESSION: Postoperative changes of thoracolumbar f usion starting from T10. Multilevel thoracic disc protrusions as discussed above with spinal canal stenosis at T9-10. No acute compression fracture. [facility]-[id number] Performing Organization Address City/State/ZIP Code Phon e Number [facility] [id number] [facility] [place] [address] CT Lumbar Spine Wo Contrast (10/08/2019 1:43 PM CDT) Specimen Narrative Performed At EXAMINATION: CT LUMBAR SPINE WO CONTRA ST [facility] CLINICAL HISTORY: M54.5 Low back pain, lumbar pain COMPARISON: None. TECHNIQUE: Axial helical CT images throughout the LUMBAR spine were performed without contrast. Sagittal and coronal reformatted i mages were generated. CT scans are performed using radiation dose reduction techniques. Technical factors are evaluated and adjusted to ensure appropriate moderation of exposure. Automated dose management engineer nology is applied to adjust radiation exposure while achie ving a highly diagnostic quality image. FINDINGS: There is anterior interbody fusion at L3-4 to L5-S1. T here is posterior element instrumentation and fusion throughout the lumb ar spine to the pelvis. There is scoliosis convex to the left. There is a partially calcified posterior extra spinal fluid collection extending from the thoracic area down to the S1 level. The fluid collection measures approximately 8 cm in maximal leung sverse diameter and increased 20 cm in craniocaudad diam eter and approximately 3 cm in maximal diameter at the level o f L3. This peripheral rim-like calcification. This is consistent with a chronic partially calcified postoperative pseudo meningocele. There is no evidence of ostial lysis randi rounding the surgical devices. Metallic fusion hardware degrades the image quality bu t there is no gross compression of the thecal sac with in the spinal canal or foramina. There are small calcified right renal st ones. IMPRESSION: Thoracolumbar and pelvic fusion. Fairly large peripherally rim calcified posterior extr a spinal pseudomeningocele as discussed above. No hardware failure or fracture. [facility]-[id number] Procedure Note Hm Interface, Radiology Results Incoming - 10/08/2019 2:06 PM CDT EXAMINATION: CT LUMBAR SPINE WO CONTRAST CLINICAL HISTORY: M54.5 Low back pain, lumbar pain COMPARISON: None. TECHNIQUE: Axial helical CT images throughout the LUMBAR spine were performed without contrast. Sagittal and coronal reformatted images were generated. CT scans are performed using radiation dose reduction techniques. Technical factors are evaluated and adjusted to ensure appropriate moderation of exposure. Automated dose management technology is applied to adjust radiation exposure while achievin g a highly diagnostic quality image. FINDINGS: There is anterior interbody fusion at L3 -4 to L5-S1. There is posterior element instrumentation and fusion throughout the lumbar spine to the pelvis. There is scoliosis convex to the left. There is a partially calcified posterior extra spinal fluid collection extending from the thoracic area down to the S1 level. The fluid collection measures approximately 8 cm in maximal transverse diameter and increased 20 cm in craniocaudad diameter and approximately 3 cm in maximal diameter at the level of L3. This peripheral rim- like calcification. This is consistent with a chronic partially calcified postoperative pseudomeningocele. There is no evidence of ostial lysis randi rounding the surgical devices. Metallic fusion hardware degrades the im age quality but there is no gross compression of the thecal sac within the spinal canal or foramina. There are small calcified right renal st ones. IMPRESSION: Thoracolumbar and pelvic fusion. Fairly large peripherally rim calcified posterior extra spinal pseudomeningocele as discussed above. No hardware failure or fracture. [facility]-[id number] Performing Organization Address City/State/ZIP Code Phon e Number [facility] [id number] [facility] [place] [address] after 04/30/2019 Advance Directives For more information, please contact: [phone] Type Date Recorded Patient Remote Ruby On Rails Developer Explanati on Advance Directives, Living Will and Medical Power of Site Supervisor Advance Directives, 11/09/2018 4:43 AM ADVANCE D IRECTIVE Living Will and Medical Power of Site Supervisor Advance Directives, 11/09/2018 4:43 AM MEDICAL P OWER OF Living Will and TWISTHAND Medical Power of Site Supervisor
--- OUTSIDE RECORDS SUMMARY | 2020-04-30 15:17 | XMS REPORT | Continuity of Care Document ---
:1960 Author Organization [facility] t Address [address] [place] [address] Care Team Providers Name Role Phone Alexander De La Rosa DO Primary Care Physician Amadeo CARLSON, JGregory Attending Clinician Jay Jay BENITO Attending Clinician Unavailable Thanh VELA Attending Clinician Unavailable Elmer Attending Clinician Payers Payer Name Policy Type Policy Effective Date Expiration Date Sour ce Number BCBSBCBS CHOICE [id number] 2017 [place] PPO/FEDERAL 00:00:00 [place] EMPL [id number] 2017-Presen tPPO Problems Condition Condition Condition Status Onset Resolution Last Treating Co mments Source Name Details Category Date Date Treatment Clinician Date DECONDITIO Diagnosis Active 2019-03-28 Memoria N 3-26 13:23:00 l 00:00: [place] DECONDITIO 00 N Active 10/17/2018 [facility] 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 [facility] imbalance imbalance 00:00: st 00 Scoliosis Scoliosis Disease Active Shayna ston due to due to 08-21 [facility] degenerati degenerati 00:00: st ve disease ve disease 00 of spine of spine in adult in adult patient patient Lumbar Lumbar Disease Active [place] stenosis stenosis 08-21 [facility] with with 00:00: st neurogenic neurogenic 00 claudicati claudsharti on on History of Problem Resolve 2019-10-07 Memoria - obesity d 21:11:53 l (context-d History Her araujo ependent of - category) obesity (context-d ependent category) Resolved Problem 10/07/2019 [facility] OTHER Diagnosis Active 2019-03-28 Mem oria MALAISE 13:23:00 l OTHER [place] MALAISE Active [facility] Allergies, Adverse Reactions, Alerts Allergy Allergy Status Severity Reaction(s) Onset Inactive Treating Comm ents Source Name Type Date Date Clinician No Known DA Active [facility] 04[facility]18 [place] [facility] No Known DA Active [facility] 04-17 [place] [facility] 00:00: [facility] No Known DA Active [facility] 03-11 [place] Allergie 00:00: [facility]ope [facility] Family History Family Member Diagnosis Comments Start Date Stop Date Source Natural mother Lung cancer [facility]i Social History Social Habit Start Date Stop Date Quantity Comments Source History of tobacco Current smoker [facility] use History [facility] odist Alcohol Std Drinks History [facility] Alcohol Binge Sex Assigned At [facility] Cigarettes smoked 2018-10-25 2018-10-25 [place] [facility] current (pack per 00:00:00 00:00:00 day) - Reported Cigarette 2018-10-25 2018-10-25 [place] [facility] pack-years 00:00:00 00:00:00 Tobacco use and 2018-10-25 2018-10-25 Never used [facility] exposure 00:00:00 00:00:00 Alcohol intake 2018-10-25 2018-10-25 Current drinker [place] [facility] 00:00:00 00:00:00 of alcohol (finding) Alcohol Comment 2018-10-02 2018-10-02 social [facility] 00:00:00 00:00:00 History SDOH 2018-08-18 2018-08-18 1 [place] [facility] Alcohol Frequency 00:00:00 00:00:00 Smoking Status Start Date Stop Date Source Social History 2019-09-07 17:25:39 [facility] Former smoker 2018-10-25 00:00:00 2018-10-25 00:00:00 [place] [facility] Medications Ordered Filled Start Stop Current Ordering Indication Dosage Frequency Signature Comments Components Source Medication Medication Date Date Medication? Clinician (SIG) Name Name cyclobenzap Yes 10mg QD Take 10 mg [place] rine 4-23 by mouth [facility] (FLEXERIL) 17:16: daily. st 10 mg 59 tablet cholecalcif Yes 1000U QD Take 1,000 [place] j[place]y, 4-23 Units by [facility] vitamin D3, 17:16: mouth st (VITAMIN 59 daily. D3) 1,000 unit tablet ascorbic Yes 500mg QD Take 500 [place] acid, 4-23 mg by [facility] vitamin C, 17:16: mouth st (VITAMIN C) 59 daily. 500 MG tablet testosteron Yes Q30D every 30 [place] cypionate 3-10 (thirty) Meth [place] (DEPOTESTOT 00:00: days. st ERONE 00 CYPIONATE) 200 mg/mL injection Vital Signs Vital Name Observation Time Observation Value Comments Source Heart rate 2019-12-05 10:15:00 69 /min [place] [facility] Oxygen saturation in 2019-12-05 10:15:00 95 /min [place] [facility] Arterial blood by Pulse oximetry Systolic blood 2019-12-05 10:00:00 114 mm[Hg] [place] [facility] pressure Diastolic blood 2019-12-05 10:00:00 79 mm[Hg] [place] [facility] pressure Respiratory rate 2019-12-05 10:00:00 18 /min [place] [facility] Body temperature 2019-12-05 09:55:00 36.44 Miladys [place] Systolic (mm Hg) 2019-09-07 17:22:00 Tobin rial [place] Diastolic (mm Hg) 2019-09-07 17:22:00 Mem orial [place] Respitory Rate 2019-09-07 17:22:00 Carlos Alberto Foster Temperature Oral (F) 2019-09-07 17:22:00 97.5 F [facility] Height 2019-09-07 17:22:00 170.18 cm [facility] Weight 2019-09-07 17:22:00 [facility] BMI Calculated 2019-09-07 17:22:00 Carlos Alberto Foster Procedures Procedure Date / Time Performed Performing Clinician Melani e CT GUIDED INJECTION 2019-12-05 10:08:14 Huseyin Childs [facility] XR THORACIC SPINE 2019-10-08 14:01:50 Huseyin Childs [facility]ist COMPLETE 4+ VW XR SPINE SCOLIOSIS 2-3 2019-10-08 14:01:29 Huseyin Childs on [facility] VIEWS XR LUMBAR SPINE AP 2019-10-08 14:01:03 Huseyin Childs ethodist LATERAL FLEXION AND EXTENSION CT THORACIC SPINE WO 2019-10-08 13:43:25 Huseyin Childs [place] CONTRAST CT LUMBAR SPINE WO 2019-10-08 13:43:12 Huseyin Childs ethodist CONTRAST Laparoscopic adjustable [facility] gastric banding Plan of Care Planned Activity Planned Date Details Comments Source Future Scheduled 2020-02-23 INFLUENZA VACCINE [place] [facility] Test 00:00:00 [code = INFLUENZA VACCINE] Future Scheduled 2008 COLONOSCOPY SCREENING [place] [facility] Test 00:00:00 [code = COLONOSCOPY SCREENING] Future Scheduled 2008 SHINGLES VACCINES [place] [facility] Test 00:00:00 (#1) [code = SHINGLES VACCINES (#1)] Encounters Start End Encounter Admission Attending Care Care Encounter Source Date/Time Date/Time Type Type Clinicians Facility Department ID 2019-12-05 2019-12-05 Outpatient AMADEO [facility] [id number] [place] 00:00:00 00:00:00 HUSEYIN [address] 2019-10-08 2019-10-08 Outpatient AMADEO [facility] [id number] [place] 00:00:00 00:00:00 [address] 2019-10-08 2019-10-08 Outpatient AMADEO [facility] [id number] [place] 00:00:00 00:00:00 HUSEYIN [address] 2019-10-08 2019-10-08 Outpatient AMADEO [facility] [id number] [place] 00:00:00 00:00:00 HUSEYIN [address] 2019-10-08 2019-10-08 Outpatient AMADEO [facility] [id number] [place] 00:00:00 00:00:00 HUSEYIN [address] 2019-10-08 2019-10-08 Outpatient AMADEO [facility] [id number] [place] 00:00:00 00:00:00 HUSEYIN [address] 2019-10-08 2019-10-08 Outpatient AMADEO, [facility] [id number] [place] 00:00:00 00:00:00 HUSEYIN [address] 2019-10-05 2019-10-05 Outpatient Elmer, [facility] [id number] 08:15:00 08:15:00 Yung 01 2019-09-07 2019-09-07 Outpatient Elmer, [facility] [id number] 11:15:00 23:59:59 Yung 00 Results Test Description Test Time Test Comments Results Result Sourc e Comments CT Guided 2019-11-23 [facility] [place] Injection [address] 14:33:49 - 12/05/2019 2:36 PM CDTEXAMINATION: CT GUIDED INJECTIONProcedure: CT-guided right sacroiliac joint blockCLINICAL HISTORY: M53.3 Sacrococcygeal disorders not elsewhere classified, G89.29 Other chronic pain, RT SACROILIAC PAINTechnique:Informe d consent was obtained.The patient was placed on the CT table [...] in the recovery room until discharge. Total sedation time was 20 minutes. The right sacroiliac joint was localized with CT fluoroscopy and the skin over [...] patient tolerated the procedure well without immediate medications.Total radiation exposure/total exam DLP 394 mGy.Total sedation time was minutes.IMPRESSION:Stevens ccessful uncomplicated CT guided the right sacroiliac joint block with good clinical response.[facility]-[id number] XR Lumbar Spine 2019-09-23 InterfaceJohn Ap Lateral [address] Flexion And 15:32:10 Incoming - 10/08/2019 Extension 3:35 PM CDTEXAMINATION: Lateral neutral, flexion-extension views; AP view of the lumbar spine in the standing position.CLINICAL HISTORY: M41.20 Other idiopathic scoliosis site unspecified, M41.50 Other secondary scoliosis site unspecified, scoliCOMPARISON: Lumbar spine x-rays from October 20, 2018.FINDINGS: There are relatively stable areas of posterior [...] or vertical rods although overlying structures obscure some details. The posterior bone density fusion is more dense in some areas.IMPRESSION:Incr eased bone density in the posterior element region consistent with more fusion compared to prior exam. Otherwise no significant changes.[facility]-[id number] X XR Spine 2019-09-23 [facility] Scoliosos 2-3 6 Radiology Results Meth odist Views 15:17:10 - 10/08/2019 3:20 PM CDTEXAMINATION: XR SPINE SCOLIOSIS 2-3 VIEWSCLINICAL HISTORY: M41.20 Other idiopathic scoliosis site unspecified, M41.50 Other secondary scoliosis site unspecified, scolioCOMPARISON: Scoliosis x-ray dated February 14, 2019Frontal and lateral views of the entire spine was performed per scoliosis protocol.IMPRESSION:T here is 20 degrees rightward curvature at T5. [...] backwards with a more normal-appearing postural today's imaging.[facility]-[id number] CT Thoracic 2019-09-23 [facility] Spine Wo [address] Contrast 14:27:41 10/08/2019 2:30 PM CDTEXAMINATION: CT THORACIC SPINE WO CONTRASTCLINICAL HISTORY: M54.6 Pain in thoracic spine, thoracic painCOMPARISON: None.TECHNIQUE:Axial helical CT images throughout the THORACIC spine were performed without contrast. Sagittal and coronal reformatted images were generated. CT scans are performed using radiation dose reduction techniques. Technical factors are evaluated and adjusted to ensure appropriate moderation of exposure. Automated dose management technology is applied to adjust radiation exposure while achieving a highly diagnostic quality image.FINDINGS:Brake Lining Curer ior element fixation with pedicle screws, interconnecting rods bone graft starts at T10 extends into the lumbar area. The lumbar fluid collection posterior to the posterior paraspinal soft tissues extends up to the level of T8-11-12 and a smaller than in the lumbar spine.There is narrowing of the disc spaces at T8-9 and T9-10. There is dorsal spondylotic changes with ligamentum flavum thickening throughout the upper lumbar spine.There is a chronic partially calcified moderate-sized right paracentral protrusion at T7-8 with impingement on the thecal sac and the right T7 nerve root.There is a fairly large left paracentral calcified disc protrusion at T8-9 with impingement on the left T8 nerve rootThere is annular bulging and spondylotic spinal canal stenosis at T9-10 with probable cord flattening.IMPRESSION :Postoperative changes of thoracolumbar fusion starting from T10.Multilevel thoracic disc protrusions as discussed above with spinal canal stenosis at T9-10.No acute compression fracture. [facility]-[id number] XR Thoracic 2019-09-23 [facility] Spine Complete 6 Radiology Results Met hodist 4+ Vw 14:11:35 - 10/08/2019 2:14 PM CDTEXAMINATION: XR THORACIC SPINE COMPLETE 4 VWNUMBER OF VIEWS: 6CLINICAL HISTORY: M41.20 Other idiopathic scoliosis site unspecified, M41.50 Other secondary scoliosis site unspecified, scolioCOMPARISON: None.FINDINGS: On the neutral frontal view there is mild curvature of the thoracic spine convex towards the right which is almost completely reduced on the bending right view and mildly accentuated on the bending left view.There are postop changes with bilateral pedicle screw and vertical marguerite internal fixation devices extending from the T9 level inferiorly to the lumbar spine.There is moderate to marked thoracic spondylosis and degenerative change in the discs primarily at the mid and lower thoracic levels.There is no definite fracture demonstrated.IMPRESSI ON:Scoliosis, spondylosis and postoperative changes.[id number] R CT Lumbar Spine 2019-09-23 John Silver Wo Contrast 6 Radiology Results Method ist 14:03:40 Incoming - 10/08/2019 2:06 PM CDTEXAMINATION: CT LUMBAR SPINE WO CONTRASTCLINICAL HISTORY: M54.5 Low back pain, lumbar painCOMPARISON: None.TECHNIQUE:Axial helical CT images throughout the LUMBAR spine were performed without contrast. Sagittal and coronal reformatted images were generated. CT scans are performed using radiation dose reduction techniques. Technical factors are evaluated and adjusted to ensure appropriate moderation of exposure. Automated dose management technology is applied to adjust radiation exposure while achieving a highly diagnostic quality image.FINDINGS:There is anterior interbody fusion at L3-4 to L5-S1. There is posterior element instrumentation and fusion throughout the lumbar spine to the pelvis. There is scoliosis convex to the left.There is a partially calcified posterior extra spinal fluid collection extending from the thoracic area down to the S1 level. The fluid collection measures approximately 8 cm in maximal transverse diameter and increased 20 cm in craniocaudad diameter and approximately 3 cm in maximal diameter at the level of L3. This peripheral rim-like calcification. This is consistent with a chronic partially calcified postoperative pseudomeningocele.The re is no evidence of ostial lysis surrounding the surgical devices.Metallic fusion hardware degrades the image quality but there is no gross compression of the thecal sac within the spinal canal or foramina.There are small calcified right renal stones.IMPRESSION:Tho racolumbar and pelvic fusion.Fairly large peripherally rim calcified posterior extra spinal pseudomeningocele as discussed above.No hardware failure or fracture. [facility]-[id number]
== END 2020-04-27 15:04 | disposition home or self-care (01) | DRG 602 ==
LOC: ER 09:43 → 2ND 13:58 → ERHOLD 04-25 01:20 → 2ND 04-26 12:20
PROVIDERS: ADMIT Hospitalist; ATTEND Hospitalist
DX: L03.116 Cellulitis of left lower limb (principal); J96.01 Acute respiratory failure with hypoxia; I50.31 Acute diastolic (congestive) heart failure; F11.20 Opioid dependence, uncomplicated; J84.9 Interstitial pulmonary disease, unspecified; J44.0 Chronic obstructive pulmonary disease with (acute) lower respiratory infection; J44.1 Chronic obstructive pulmonary disease with (acute) exacerbation; G89.29 Other chronic pain; M54.9 Dorsalgia, unspecified; F17.200 Nicotine dependence, unspecified, uncomplicated; I11.0 Hypertensive heart disease with heart failure; M79.672 Pain in left foot; Z79.899 Other long term (current) drug therapy; Z20.828 Contact with and (suspected) exposure to other viral communicable diseases
CPT/HCPCS: 36415; 70450; 71045; 71046; 71275; 80048; 80053; 80076; 82550; 82805; 82947; 83605; 83735; 83880; 84100; 84145; 84439; 84443; 84484; 85025; 86140; 87040; 93005; 93306; 93971; 94002; 94003; 94640; 94660; 96365; 96375; 97116; 97161; 97530; 99285; J0690; J1650; J1940; J2270; J2920; J3370; J3475; J7030; J7040; J7605; J7606; Q9967; U0003

== ENCOUNTER 2022-05-31 20:02 | Inpatient (IN) | payer BC ==
--- OUTSIDE RECORDS SUMMARY | 2022-05-31 20:12 | XMS REPORT | Continuity of Care Document ---
:[address] [facility] t Address 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 08-21 imbalance imbalance 00:00: Hosp teresa 00 l Scoliosis Scoliosis Disease Active 2019 Met hodi due to due to 08-21 degenerati degenerati 00:00: Ho spita ve disease ve disease 00 l of spine of spine in adult in adult patient patient Lumbar Lumbar Disease Active Methodi stenosis stenosis 08-21 with with 00:00: Hospita neurogenic neurogenic 00 l claudicati claudicati on on [id number] Benign Problem Common prostatic Spirit hyperplasi - [facility] a with [facility] urinary Medical tract Center symptoms [id number] Nicotine Problem Commo n dependence Spirit , - [facility] unspecifie [facility], [facility] uncomplica [facility] Allergies, Adverse Reactions, Alerts Allergy Allergy [...] Comments Start Date Stop Date Source Natural father [facility] Natural mother Lung cancer [facility] Social History Social Habit Start Date Stop Date Quantity Comments Source History [facility] Std Drinks Hospit al History [facility] History of Tobacco Current Smoker Co [facility] Spirit - Use [facility] Alcohol intake 2018-10-25 2018-10-25 Current drinker [facility] dist 00:00:00 00:00:00 of alcohol Hospital (finding) History SDOH 2018-10-20 2018-10-20 1 [facility] Alcohol Frequency 00:00:00 00:00:00 Hospita l Alcohol Comment 2018-10-02 2018-10-02 social [facility] 00:00:00 00:00:00 Hospital Cigarettes smoked 2018-10-02 2018-10-[address] current (pack per 00:00:00 00:00:00 Hospita day) - Reported Cigarette 2018-10-02 2018-10-02 [facility] pack-years 00:00:00 00:00:00 Hospital Tobacco use and 2018-10-02 2018-10-02 Smokeless tobacco [facility] exposure 00:00:00 00:00:00 non-user Hospital Sex Ass[birth year] At [birth year] [facility] 00:00:00 00:00:00 Hospital Smoking Status Start Date Stop Date Source Current Smoker 2022-05-12 00:00:00 Common Spiri t - [facility] Ex-smoker 2018-10-02 00:00:00 2018-10-02 [facility]:00:[facility] Medications Ordered Filled Start Stop Current Ordering Indication Dosage Frequency Signature Comments Components Source Medication Medication Date Date Medication? Clinician (SIG) Name Name cyclobenzap Yes 10mg QD Take 10 mg Methodi rine 4-[address] (FLEXERIL) 17:16: daily. Hospi ta 10 mg 59 l tablet cholecalcif Yes 1000U QD Take 1,000 Methodi josy, 4-[address] vitamin D3, 17:16: mouth Hospi ta (VITAMIN 59 daily. l D3) 1,000 unit tablet ascorbic Yes 500mg QD Take 500 Meth suma acid, 4-[address] vitamin C, 17:16: mouth Hospit a (VITAMIN C) 59 daily. l 500 MG tablet testosteron Yes Q30D every 30 Me thodi e cypionate 3-10 (thirty) st (DEPOTESTOT 00:00: days. Hospi ta ERONE 00 l CYPIONATE) 200 mg/mL injection Cyclobenzap Cyclobenzap No 1{table QD Cyclobenza rine HCl 10 rine HCl 10 t_at_be channing HCl MG MG dtime_a 10 MG s_neede d} Meloxicam Meloxicam No 1{table QD Meloxicam 7.5 MG 7.5 MG t} 7.5 MG Buprenorphi Buprenorphi No 1{table Buprenorph ne ne t_under ine HCl-Naloxon HCl-Naloxon _the_to HCl-Naloxo e HCl 8-2 e HCl 8-2 ngue_an ne HCl 8-2 MG MG d_allow MG _to_dis solve} diazePAM 10 diazePAM 10 No 1{table QD diazePAM MG MG t_as_ne 10 MG eded} busPIRone busPIRone No 1{table BID busPIRone HCl 10 MG HCl 10 MG t} HCl 10 MG hydroCHLORO hydroCHLORO No 1{table QD hydroCHLOR thiazide 25 thiazide 25 t_in_th Othiazide MG MG e_morni 25 MG ng} Vital Signs Vital Name Observation Time Observation Value Comments Source height 2022-05-12 09:30:00 66 [in_i] Common S pirit - [facility] weight 2022-05-12 09:30:00 180.4 [lb_av] Common Spirit - [facility] temperature 2022-05-12 09:30:00 98.3 [degF] Common S pirit [facility] bmi 2022-05-12 09:30:00 29.11 kg/m2 [facility] 2022-05-12 09:30:00 98 % Common S pirit [facility] respiratory rate 2022-05-12 09:30:00 16 /min Comm on [facility] blood pressure 2022-05-12 09:30:00 114 mm[Hg] Common [facility] - systolic [facility] blood pressure 2022-05-12 09:30:00 63 mm[Hg] Common [facility] - diastolic [facility] Procedures This patient has no known procedures. Plan of Care Planned Activity Planned Date Details Comments Source Future Scheduled 2022-05-28 HEPATITIS B VACCINES [facility] Test 19:13:27 (1 of 3 - 3-dose series) [code = HEPATITIS B VACCINES (1 of 3 - 3-dose series)] Future Scheduled 2022-05-28 COVID-19 VACCINE (#1) [facility] Test 19:13:27 [code = COVID-19 VACCINE (#1)] Future Scheduled 2022-05-28 Hepatitis C screening [facility] Test 19:13:27 (procedure) [code = 110964117] Future Scheduled 2022-05-28 COLONOSCOPY SCREENING [facility] Test 19:13:27 [code = COLONOSCOPY SCREENING] Future Scheduled 2022-05-28 SHINGLES VACCINES (1 [facility] Test 19:13:27 of 2) [code = SHINGLES VACCINES (1 of 2)] Future Scheduled 2022-05-28 [facility]ACCINE [facility] Test 19:13:27 [code = INFLUENZA VACCINE] Encounters Start End Encounter Admission Attending Care Care Encounter Source Date/Time Date/Time Type Type Clinicians Facility Department ID 2022-05-12 Outpatient Millan, [facility] [id number] Common 08:52:03 Igor [id number] [facility] 2022-05-12 2022-05-12 OFFICE [facility] [id number] Co mmon 00:00:00 00:00:00 VISIT NEW Spir it PT LEVEL 2 - [facility] 2022-01-18 2022-01-23 Inpatient REYES, [facility] MED [id number] 06:18:00 11:55:00 EVERETT [place] [facility] 2021-12-04 2021-12-04 Outpatient EMY, [facility] MARCOS [id number] 09:47:00 13:54:00 BHANU [place] [facility] 2019-12-05 2019-12-05 Outpatient FRANKLIN, [facility] [id number] [address] 00:00:00 00:00:00 BERNARDO [address] 2019-10-08 2019-10-08 Outpatient FRANKLIN, [facility] [id number] [address] 00:00:00 00:00:00 BERNARDO [address] 2019-10-08 2019-10-08 Outpatient FRANKLIN, [facility] [id number] [address] 00:00:00 00:00:00 BERNARDO [address] 2019-10-08 2019-10-08 Outpatient FRANKLIN, [facility] [id number] [address] 00:00:00 00:00:00 BERNARDO [address] 2019-10-08 2019-10-08 Outpatient FRANKLIN, [facility] [id number] [address] 00:00:00 00:00:00 BERNARDO [address] 2019-10-08 2019-10-08 Outpatient FRANKLIN, [facility] [id number] [address] 00:00:00 00:00:00 BERNARDO [address] 2019-10-08 2019-10-08 Outpatient FRANKLIN, [facility] [id number] [address] 00:00:00 00:00:00 BERNARDO [address] Results This patient has no known results.
[2022-05-31] MEDS ORDERED: ACETAMINOPHEN 325 MG TABLET ONE (20:52)
[2022-05-31 21:33] LABS: Hematocrit 42.6 % (39.6-49.0); Lymphocytes % 5.9 % (15.3-44.8); MCV 88.6 fL (80-100); MPV 7.1 fL (7.6-11.3); RBC Red Blood Cell Count 4.81 M/uL (4.33-5.43)
[2022-05-31 21:38] LABS: Protime INR 1.41
--- NOTE | 2022-05-31 22:48 | RAD REPORT ---
EXAM DESCRIPTION: CT - Abdomen Pelvis Wo Contrast - 05/31/2022 10:27 pm CLINICAL HISTORY: Trauma COMPARISON: Stone Protocol dated 04/23/2019 TECHNIQUE: Axial [address] imaging of the abdomen and pelvis was performed without IV contrast. No IV contrast was given because of allergy, abnormal renal function, patient refusal or physician re quest. No oral contrast administered All CT scans are performed using dose optimization technique as appropriate and may include automated exposure control or mA/KV adjustment according to patient size. FINDINGS: Small right-sided pleural effusion is present. Interstitial and alveolar opacities are pre sent at the right base with air bronchograms seen. Patchy left lung base parenchymal opacification pr esent as well. No cardiomegaly or pericardial effusion. The liver, spleen and pancreas show no suspicious findings on non-contrast imaging. Gallbladder is di lated. No biliary tree dilatation. Gallbladder wall does not appear thickened or edematous. Gallstone s can be occult on CT imaging. No hydronephrosis or suspicious renal mass. Nonobstructing 5 mm calcification noted in calyx on the r ight. Right-sided stent has been removed since the 2019 study. No significant adrenal finding. Isoden se renal masses and pyelonephritis cannot be excluded in the absence of IV contrast. The urinary blad victor manuel is without significant finding. Gastric surgical changes are noted. No dilated small bowel finding. Large stool volume is present dis tending the right-side of the colon. Moderate volume noted on the left side. Mobile cecum is present. Appendicitis is not suspected. No free air, free fluid or inflammatory stranding. No mass or bulky lymphadenopathy. No acute bone findings seen. Patient has very extensive final surgical change. Pedicle rods and screw s line the entirety of the lumbar and lower thoracic spine. No hardware fracture seen. IMPRESSION: Consolidated pneumonia findings are present in the right lung base with small right pleu ral effusion. Minimal left base infiltrates seen. Dilated gallbladder without wall thickening or edema. No biliary tree dilatation. Large stool volume distending the right-side of colon. Colon mass or acute colon wall thickening not seen. Full assessment is limited is the absence of IV contrast.
--- NOTE | 2022-05-31 23:16 | EDPHYS ---
Physician Documentation [facility] Name: Steven Hope Age: 61 yrs Sex: Male : 1960 Arrival Date: 05/31/2022 Time: 20:03 Bed 13 Private MD: ED Physician Joleen Ruiz HPI: 05/31 20:58 This 61 yrs old Male presents to ER via Ambulatory with complaints of Fall, Flank Pain, sp3 left hip pain. 20:58 61-year-old male with a history of multiple back surgeries, kidney stones, currently on sp3 Suboxone for prior medication intake now presents for left-sided flank pain secondary to ground-level fall 5 days ago. Patient states that he was pulling a becky of boxes and slipped and fell and has been dealing with this back/flank pain since then which is progressively getting worse. States he also has a bruise on his left hip but is able to walk and the pain is really more in his back. He denies gross hematuria, urinary frequency, fever, abdominal pain, chest pain, upper back pain, neck pain, headache, head trauma, other extremity trauma, rash, bleeding, any other symptoms on ROS at this time. Patient is on Xarelto for a prior pulmonary embolism many months ago.. Historical: - Allergies: 20:25 No Known Allergies; ld1 - PMHx: 20:25 Back pain; Kidney stones; ld1 - PSHx: 20:25 Back surgery; ld1 20:25 Gastric bypass; ld1 - Immunization history:: Adult Immunizations up to date, Client reports receiving the 2nd dose of the Covid vaccine. - Social history:: Smoking status: Patient reports the use of cigarette tobacco products, smokes one-half pack cigarettes per day, Patient/guardian denies using alcohol. ROS: 21:00 Constitutional: Negative for fever, chills, and weight loss, Eyes: Negative for injury, sp3 pain, redness, and discharge, ENT: Negative for injury, pain, and discharge, Neck: Negative for injury, pain, and swelling, Cardiovascular: Negative for chest pain, palpitations, and edema, Respiratory: Negative for shortness of breath, cough, wheezing, and pleuritic chest pain, Abdomen/GI: Negative for abdominal pain, nausea, vomiting, diarrhea, and constipation, Skin: Negative for injury, rash, and discoloration, Neuro: Negative for headache, weakness, numbness, tingling, and seizure, Psych: Negative for depression, anxiety, suicide ideation, homicidal ideation, and hallucinations, Allergy/Immunology: Negative for hives, rash, and allergies, Endocrine: Negative for neck swelling, polydipsia, polyuria, polyphagia, and marked weight changes. 21:00 All other systems are negative. Exam: 21:01 Constitutional: This is a well developed, well nourished patient who is awake, alert, sp3 and in no acute distress. Head/Face: Normocephalic, atraumatic. Eyes: Pupils equal round and reactive to light, extra-ocular motions intact. Lids and lashes normal. Conjunctiva and sclera are non-icteric and not injected. Cornea within normal limits. Periorbital areas with no swelling, redness, or edema. ENT: Nares patent. No nasal discharge, no septal abnormalities noted. External auditory canals are clear. Oropharynx with no redness, swelling, or masses, exudates, or evidence of obstruction, uvula midline. Mucous membranes moist. Neck: Trachea midline, no thyromegaly or masses palpated, and no cervical lymphadenopathy. Supple, full range of motion without nuchal rigidity, or vertebral point tenderness. No Meningismus. Chest/axilla: Normal chest wall appearance and motion. Nontender with no deformity. No lesions are appreciated. Cardiovascular: Regular rate and rhythm with a normal S1 and S2. No gallops, murmurs, or rubs. Normal PMI, no JVD. No pulse deficits. Respiratory: Lungs have equal breath sounds bilaterally, clear to auscultation and percussion. No rales, rhonchi or wheezes noted. No increased work of breathing, no retractions or nasal flaring. Abdomen/GI: Soft, non-tender, with normal bowel sounds. No distension or tympany. No guarding or rebound. No evidence of tenderness throughout. Skin: Warm, dry with normal turgor. Normal color with no rashes, no lesions, and no evidence of cellulitis. Neuro: Awake and alert, GCS 15, oriented to person, place, time, and situation. Cranial nerves II-XII grossly intact. Motor strength 5/5 in all extremities. Sensory grossly intact. Cerebellar exam normal. Normal gait. Psych: Awake, alert, with orientation to person, place and time. Behavior, mood, and affect are within normal limits. 21:01 Back: Discussed the pain along lower left flank and also lower right flank without upper CVA tenderness. Left hip also has ecchymoses laterally. Full range of motion on hip and no pain on axial load. She does have a hard time getting laying down. He is comfortable in the chair only.. Vital Signs: 20:22 BP 159 / 86; Pulse 93; Resp 18; Temp 98.1(TE); Weight 83.91 kg; Height 5 ft. 8 in. ld1 (172.72 cm); Pain 10/10; 21:43 BP 102 / 60; Pulse 85; Resp 18; Pulse Ox 88% on R/A; jb4 22:15 BP 91 / 53; Pulse 80; Resp 16; Pulse Ox 88% on R/A; jb4 23:30 BP 95 / 65; Pulse 76; Resp 16; Pulse Ox 86% on R/A; jb4 06/01 00:30 BP 91 / 56; Pulse 72; Resp 18; Pulse Ox 94% on R/A; jb4 02:00 BP 91 / 54; Pulse 66; Resp 18; Pulse Ox 100% on 2 lpm NC; jb4 02:30 BP 86 / 55; Pulse 63; Resp 18; Pulse Ox 100% on 2 lpm NC; jb4 03:00 BP 86 / 51; Pulse 62; Resp 16; Temp 97.0(TE); Pulse Ox 100% on 2 lpm NC; jb4 03:30 BP 90 / 47; Pulse 65; Resp 16; Pulse Ox 100% on 2 lpm NC; jb4 04:08 BP 95 / 57; Pulse 68; Resp 17; Temp 97.0(O); Pulse Ox 98% on 2 lpm NC; jb4 04:30 BP 78 / 37; Pulse 61; Resp 18; Pulse Ox 97% on 2 lpm NC; jb4 04:40 BP 101 / 69; Pulse 83; Resp 19; Pulse Ox 94% on 2 lpm NC; jb4 04:50 BP 136 / 59; Pulse 79; Resp 24; Pulse Ox 95% on 2 lpm NC; jb4 05:00 BP 113 / 62; Pulse 83; Resp 25; Pulse Ox 93% on 2 lpm NC; jb4 05/31 20:22 Body Mass Index 28.13 (83.91 kg, 172.72 cm) ld1 05/31 21:43 Pt reports currrent oxygen level is normal for him and denies SOB jb4 MDM: 20:46 Patient medically screened. sp3 21:02 Data reviewed: vital signs, nurses notes. ED course: 61-year-old male with bilateral sp3 flank/back pain and left hip contusion. Initial diagnosis mainly surrounds a trauma evaluation with possibilities including musculoskeletal contusion, bone fracture, intra-abdominal injury/bleeding, retroperitoneal bleeding, kidney stone, other findings. Work-up will include CT scan of the abdomen/pelvis with IV contrast, laboratory values, and pain control only with Tylenol given the fact that he is on Suboxone. Vital signs are normal patient is not tachycardic or hypotensive. Disposition pending depending on final diagnostics.. 23:13 ED course: Patient CT scan demonstrates no acute injury from a traumatic standpoint but sp3 does demonstrate bilateral pneumonias in the lower lobes. WBC count is 17 which further supports the diagnosis. I have offered patient admission but he would like to be discharged and states that he will return if oral antibiotics do not work. We will give 1 dose of Levaquin 5 mg IV here and then discharged on 500 mg p.o. for 1 week. Creatinine is 1.5 and therefore we will not use the 750 mg dose.. 11 00:42 ED course: On discharge, patient now states that he wants to stay secondary to him sp3 feeling weaker than he was earlier. Blood pressure is 91/53 patient now also has a mild O2 requirement.. 05/31 20:46 Order name: Basic Metabolic Panel; Complete Time: 23:03 sp3 05/31 20:46 Order name: CBC with Diff; Complete Time: 23:03 sp3 05/31 20:46 Order name: PT-INR; Complete Time: 23:03 sp3 05/31 23:12 Order name: Blood Culture Adult (2) sp3 06/01 00:46 Order name: Lactate; Complete Time: 01:57 la1 06/01 00:49 Order name: SARS-COV-2 RT PCR (Document "Date of Onset" if Symptomatic); Complete Time: wm 02:27 05/31 22:28 Order name: Abdomen ; Complete Time: 23:03 EDMS 06/01 01:58 Order name: ABG; Complete Time: 02:27 la1 06/01 04:39 Order name: CBC with Automated Diff EDMS 06/01 04:57 Order name: Lactate EDMS 06/01 05:00 Order name: Comprehensive Metabolic Panel EDMS 05/31 20:46 Order name: Labs collected and sent; Complete Time: 21:43 sp3 Administered Medications: 05/31 20:55 Drug: Tylenol 650 mg Route: PO; jb4 23:40 Drug: LevaQUIN (levofloxacin) 500 mg Volume: 100 ml; Route: IVPB; Infused Over: 60 jb4 mins; Site: right antecubital; 06/01 00:40 Follow up: Response: No adverse reaction; IV Status: Completed infusion; IV Intake: jb4 100ml 02:03 Drug: NS 0.9% 1000 ml Route: IV; Rate: 1000 ml; Site: right antecubital; jb4 03:00 Follow up: Response: No adverse reaction; IV Status: Completed infusion; IV Intake: jb4 1000ml 03:16 Drug: NS 0.9% (30 ml/kg) 30 ml/kg Route: IV; Rate: bolus; Site: right antecubital; jb4 Disposition Summary: 06/01/22 00:45 Hospitalization Ordered Hospitalization Status: Inpatient Admission sp3 Provider: Steven Borges spUriel Location: Telemetry/[facility] (Inpatient)(06/01/22 00:45) sp3 Condition: Stable(06/01/22 00:45) sp3 Problem: new sp3 Symptoms: have worsened sp3 Bed/Room Type: Standard sp3 Room Assignment: [facility](06/01/22 02:42) Diagnosis - Other pneumonia, unspecified organism(06/01/22 00:45) sp3 Forms: - Medication Reconciliation Form sp3 - SBAR form sp3 Signatures: Dispatcher [employer] EDHI Agata Burks RN RN mw Song Montero, FRANK-C BANQUET PREP COOK-Cla1 Maxi Earl RN RN jb4 Gloria Jensen RN RN ld1 Joleen Ruiz MD MD sp3 Corrections: (The following items were deleted from the chart) 05/31 22:28 20:47 Abdomen Pelvis W Con+CT.RAD.BRZ ordered. EDHI EDMS 06/01 00:43 05/31 23:16 Home sp3 sp3 06/01 00:43 05/31 23:16 Stable sp3 sp3 06/01 00:43 05/31 23:16 Other pneumonia, unspecified organism sp3 sp3 06/01 02:42 00:45 sp3 mw
--- NOTE | 2022-05-31 23:16 | ER ---
Nurse's Notes [facility] Name: Steven Hope Age: 61 yrs Sex: Male : 1960 Arrival Date: 05/31/2022 Time: 20:03 Bed 13 Private MD: Diagnosis: Other pneumonia, unspecified organism Presentation: 05/31 20:22 Chief complaint: Patient states: Carried heavy boxes last week - C/O VIDYA flank pain. ld1 Denies urinary symptoms. Coronavirus screen: At this time, the client does not indicate any symptoms associated with coronavirus-19. Ebola Screen: No symptoms or risks identified at this time. No acute neurological deficit is noted. Pre-hospital glucose is not applicable to this patient. Initial Sepsis Screen: Does the patient meet any 2 criteria? No. Patient's initial sepsis screen is negative. Does the patient have a suspected source of infection? No. Patient's initial sepsis screen is negative. Risk Assessment: Do you want to hurt yourself or someone else? Patient reports no desire to harm self or others. Onset of symptoms was May 31, 2022. 20:22 Method Of Arrival: Ambulatory ld1 20:22 Acuity: OTILIA 3 ld1 Triage Assessment: 20:25 General: Appears in no apparent distress. uncomfortable, Behavior is cooperative, ld1 appropriate for age. Pain: Complains of pain in back Pain does not radiate. Pain currently is 10 out of 10 on a pain scale. Quality of pain is described as throbbing. EENT: No signs and/or symptoms were reported regarding the EENT system. Neuro: Level of Consciousness is awake, alert, obeys commands, Oriented to person, place, time, situation, Appropriate for age. Cardiovascular: Capillary refill < 3 seconds Patient's skin is warm and dry. Respiratory: Airway is patent Respiratory effort is even, unlabored. GI: Abdomen is flat, non-distended. : No signs and/or symptoms were reported regarding the genitourinary system. Derm: No signs and/or symptoms reported regarding the dermatologic system. Historical: - Allergies: 20:25 No Known Allergies; ld1 - PMHx: 20:25 Back pain; Kidney stones; ld1 - PSHx: 20:25 Back surgery; ld1 20:25 Gastric bypass; ld1 - Immunization history:: Adult Immunizations up to date, Client reports receiving the 2nd dose of the Covid vaccine. - Social history:: Smoking status: Patient reports the use of cigarette tobacco products, smokes one-half pack cigarettes per day, Patient/guardian denies using alcohol. Screenin:40 Abuse screen: Denies threats or abuse. Nutritional screening: No deficits noted. kd3 Tuberculosis screening: No symptoms or risk factors identified. Fall Risk None identified. Assessment: 20:40 Reassessment: see triage note. jb4 21:30 Reassessment: Patient appears in no apparent distress at this time. Patient and/or jb4 family updated on plan of care and expected duration. Pain level reassessed. Patient is alert, oriented x 3, equal unlabored respirations, skin warm/dry/pink. 22:30 Reassessment: Patient appears in no apparent distress at this time. Patient and/or jb4 family updated on plan of care and expected duration. Pain level reassessed. Patient is alert, oriented x 3, equal unlabored respirations, skin warm/dry/pink. 23:22 Reassessment: Patient appears in no apparent distress at this time. Patient and/or jb4 family updated on plan of care and expected duration. Pain level reassessed. Patient is alert, oriented x 3, equal unlabored respirations, skin warm/dry/pink. Pt reports wanting to go home and try out patient treatment, States " If I get worse, I will come back.". Provider attempted to speak with pt, pt continues to want to try out patient. 06/01 00:30 Reassessment: Patient appears in no apparent distress at this time. Patient and/or jb4 family updated on plan of care and expected duration. Pain level reassessed. Patient is alert, oriented x 3, equal unlabored respirations, skin warm/dry/pink. 01:30 Reassessment: Patient appears in no apparent distress at this time. Patient and/or jb4 family updated on plan of care and expected duration. Pain level reassessed. Patient is alert, oriented x 3, equal unlabored respirations, skin warm/dry/pink. 02:24 Reassessment: Patient appears in no apparent distress at this time. Patient and/or jb4 family updated on plan of care and expected duration. Pain level reassessed. Patient is alert, oriented x 3, equal unlabored respirations, skin warm/dry/pink. 03:09 Reassessment: Patient appears in no apparent distress at this time. Patient and/or jb4 family updated on plan of care and expected duration. Pain level reassessed. Patient is alert, oriented x 3, equal unlabored respirations, skin warm/dry/pink. Admitting provider updated on vitals. See MAR. 03:58 Reassessment: Patient appears in no apparent distress at this time. Patient and/or jb4 family updated on plan of care and expected duration. Pain level reassessed. Pt is resting in bed with no s/s of pain or distress noted. 04:45 Reassessment: Pt assisted from the wheel chair to ER stretcher. Reports increased back jb4 pain after moving, asked to take home dose of Suboxone. Informed admitting provider, instructed to tell pt no at this time. Admitting provider notified of 0430 and 0440 VS. No other orders received. Vital Signs: 05/31 20:22 BP 159 / 86; Pulse 93; Resp 18; Temp 98.1(TE); Weight 83.91 kg; Height 5 ft. 8 in. ld1 (172.72 cm); Pain 10/10; 21:43 BP 102 / 60; Pulse 85; Resp 18; Pulse Ox 88% on R/A; jb4 22:15 BP 91 / 53; Pulse 80; Resp 16; Pulse Ox 88% on R/A; jb4 23:30 BP 95 / 65; Pulse 76; Resp 16; Pulse Ox 86% on R/A; jb4 06/01 00:30 BP 91 / 56; Pulse 72; Resp 18; Pulse Ox 94% on R/A; jb4 02:00 BP 91 / 54; Pulse 66; Resp 18; Pulse Ox 100% on 2 lpm NC; jb4 02:30 BP 86 / 55; Pulse 63; Resp 18; Pulse Ox 100% on 2 lpm NC; jb4 03:00 BP 86 / 51; Pulse 62; Resp 16; Temp 97.0(TE); Pulse Ox 100% on 2 lpm NC; jb4 03:30 BP 90 / 47; Pulse 65; Resp 16; Pulse Ox 100% on 2 lpm NC; jb4 04:08 BP 95 / 57; Pulse 68; Resp 17; Temp 97.0(O); Pulse Ox 98% on 2 lpm NC; jb4 04:30 BP 78 / 37; Pulse 61; Resp 18; Pulse Ox 97% on 2 lpm NC; jb4 04:40 BP 101 / 69; Pulse 83; Resp 19; Pulse Ox 94% on 2 lpm NC; jb4 04:50 BP 136 / 59; Pulse 79; Resp 24; Pulse Ox 95% on 2 lpm NC; jb4 05:00 BP 113 / 62; Pulse 83; Resp 25; Pulse Ox 93% on 2 lpm NC; jb4 05/31 20:22 Body Mass Index 28.13 (83.91 kg, 172.72 cm) ld1 05/31 21:43 Pt reports currrent oxygen level is normal for him and denies SOB jb4 ED Course: 20:03 Patient arrived in ED. bp1 20:24 Triage completed. ld1 20:25 Arm band placed on right wrist. ld1 20:31 Joleen Ruiz MD is Attending Physician. sp3 21:20 Inserted saline lock: 20 gauge in right antecubital area, using aseptic technique. oe Blood collected. 21:43 Maxi Earl, THONG is Primary Nurse. jb4 22:28 Abdomen In Process Unspecified. EDMS 06/01 00:45 Steven Borges MD is Hospitalizing Provider. sp3 06:00 No provider procedures requiring assistance completed. Patient admitted, IV remains in kd3 place. Administered Medications: 05/31 20:55 Drug: Tylenol 650 mg Route: PO; jb4 23:40 Drug: LevaQUIN (levofloxacin) 500 mg Volume: 100 ml; Route: IVPB; Infused Over: 60 jb4 mins; Site: right antecubital; 06/01 00:40 Follow up: Response: No adverse reaction; IV Status: Completed infusion; IV Intake: jb4 100ml 02:03 Drug: NS 0.9% 1000 ml Route: IV; Rate: 1000 ml; Site: right antecubital; jb4 03:00 Follow up: Response: No adverse reaction; IV Status: Completed infusion; IV Intake: jb4 1000ml 03:16 Drug: NS 0.9% (30 ml/kg) 30 ml/kg Route: IV; Rate: bolus; Site: right antecubital; jb4 Intake: 00:40 IV: 100ml; Total: 100ml. jb4 03:00 IV: 1000ml; Total: 1100ml. jb4 Outcome: 05/31 23:16 Discharge ordered by . sp3 06/01 00:45 Decision to Hospitalize by Provider. sp3 06:00 Admitted to Med/surg accompanied by tech, via stretcher, room 221, with oxygen, with kd3 chart, Report called to THONG Malave 06:00 Condition: stable 06:00 Discharge instructions given to patient, family, Instructed on the need for admit, Demonstrated understanding of instructions. 06:01 Patient left the ED. kd3 Signatures: Dispatcher [employer] EDMS Maxi Earl, RN RN jb4 Helio Ballesteros Brittany bp1 Dibbern, Lauren, THONG RN ld1 Joleen Ruiz MD MD sp3 Andreina Dorado RN RN kd3 Corrections: (The following items were deleted from the chart) 05:04 04:56 Reassessment: Pt assisted from the wheel chair to ER stretcher. Reports increased jb4 back pain after moving, asked to take home dose of Suboxone. Informed admitting provider, instructed to tell pt no at this time. No other orders received. jb4
[2022-05-31] MEDS ORDERED: Levofloxacin500mg IV 500 MG/100 ML BAG IV ONE (23:30)
[2022-06-01] MEDS ORDERED: NA CHLORIDE 0.9% 1,000 ML ONE ×2 (01:59→03:14)
[2022-06-01 02:17] LABS: Arterial Blood Carboxyhemoglob 5.6 % (0-1.5); Blood Gas Oxyhemoglobin 34.4 % (94-97); Blood O2 Saturation 36.9 % (92-98.5)
--- NOTE | 2022-06-01 02:25 | P.HP ---
Certification for Inpatient Patient admitted to: Inpatient With expected LOS: >2 Midnights Patient will require the following post-hospital care: None Practitioner: I am a practitioner with admitting privileges, knowledge of patient current condition, hospital course, and medical plan of care. Services: Services provided to patient in accordance with Admission requirements found in Title 42 Section 412.3 of the Code of Federal Regulations <Song Montero - Last Filed: 06/01/22 02:21> Patient History Date of Service: 06/01/22 Reason for admission: Sepsis, pneumonia History of Present Illness: 61-year-old male with history of COPD, tobacco abuse, previous PE on anticoagulation, chronic back pain presents to the emergency department for flank pain. Patient's reports that he has been battling with pneumonia on and off for the past 6 months or so after having gastric bypass surgery. He was evaluated in the emergency department his labs were significant for leukocytosis with white blood cell count of 17 sodium 132 chloride 92 creatinine 1.52 GFR 52 glucose 125 his lactate was 1.4 SIRS criteria present including leukocytosis, tachycardia source of infection identified on CAT scan consolidated pneumonia findings present in the right lung base with small right pleural effusion. Minimal left base infiltrate seen. Blood cultures, lactate obtained patient treated with Levaquin in emergency department. Patient blood pressures soft in ED around 90-95 systolic, getting IV fluids now. Has not had 2 pressures less than 90 systolic or maps less than 65. Will admit for further evaluation and management of sepsis, pneumonia. 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 - Family History Mother -: Diabetes - Social History Smoking Status: Current every day smoker Counseled patient to stop smoking for: less than 10 minutes Smoking therapy provided: Yes Alcohol use: No CD- Drugs: No Caffeine use: Yes Place of Residence: Home <Song Montero - Last Filed: 06/01/22 02:21> Date of Service: 06/01/22 <Steven Borges - Last Filed: 06/01/22 10:39> Allergies No Known Allergies Allergy (Unverified 04/24/20 11:28) Home Medications: Buprenorphine HCl/Naloxone HCl [Suboxone 2 mg-0.5 mg Sl Film] 1 each SL DAILY 04/24/20 Albuterol Inhaler [Ventolin Inhaler*] 2 puff IH Q6H PRN #1 hfa.aer.ad 04/27/20 Cephalexin [Keflex] 1 tab PO Q6HR 7 Days #28 cap 04/27/20 Furosemide [Lasix] 1 tab PO DAILY #30 tablet 04/27/20 Mometasone/Formoterol [Dulera 200 Mcg/5 Mcg Inhaler] 2 puff IH BID inhaler 04/27/20 predniSONE [Prednisone] 20 mg PO BID 4 Days #8 tablet 04/27/20 Review of Systems 10-point ROS is otherwise unremarkable General: Chills, Malaise Respiratory: Shortness of Breath <Song Montero - Last Filed: 06/01/22 02:21> Physical Examination - Physical Exam General: Alert, In no apparent distress, Oriented x3 HEENT: Atraumatic, PERRLA, Mucous membr. moist/pink, EOMI, Sclerae nonicteric Neck: Supple, 2+ carotid pulse no bruit, No LAD, Without JVD or thyroid abnormality Respiratory: Clear to auscultation bilaterally, Diminished Cardiovascular: Regular rate/rhythm, Normal S1 S2 Capillary refill: <2 Seconds Gastrointestinal: Normal bowel sounds, No tenderness Musculoskeletal: No tenderness Integumentary: No rashes Neurological: Normal speech, Normal strength at 5/5 x4 extr, Normal tone, Normal affect - Studies Laboratory Data (last 24 hrs) 05/31/22 21:17: PT 15.5 H, INR 1.41 05/31/22 21:17: WBC 17.00 H, Hgb 14.2, Hct 42.6, Plt Count 381 05/31/22 21:17: Sodium 132 L, Potassium 4.0, BUN 29 H, Creatinine 1.51 H, Glucose 125 H <Song Montero - Last Filed: 06/01/22 02:21> - Studies Laboratory Data (last 24 hrs) 05/31/22 21:17: PT 15.5 H, INR 1.41 05/31/22 21:17: WBC 17.00 H, Hgb 14.2, Hct 42.6, Plt Count 381 05/31/22 21:17: Sodium 132 L, Potassium 4.0, BUN 29 H, Creatinine 1.51 H, Glucose 125 H Microbiology Data (last 24 hrs): 05/31/22 23:33 Blood - Blood Anaerobic Blood Culture - Final 05/31/22 23:26 Blood - Blood Anaerobic Blood Culture - Final <Steven Borges - Last Filed: 06/01/22 10:39> Assessment and Plan - Plan Assessment: Sepsis without severe sepsis or septic shock secondary to bilateral pneumonia COPD exacerbation History of PE on anticoagulation Chronic back pain Plan: Sepsis without severe sepsis or septic shock secondary to bilateral pneumonia: Blood cultures obtained in emergency department, lactate within normal limits. Blood pressures initially soft before receiving IV fluids systolic around 95, IV fluids infusing now. Continue antibioticsLevaquin, incentive spirometry. Follow blood cultures. COPD exacerbation: Continue with p.o. steroids, supplemental oxygen as needed, ICS, incentive spirometry. Pulmonology consult in place. History of PE on anticoagulation: Continue Xarelto, patient reports history of PE in December, has been on Xarelto since then. He is compliant with his medications. Chronic back pain: Continue home medications. DVT PPX: Continue Xarelto Code status: Full Discharge Plan: Home Plan to discharge in: 48 Hours - Advance Directives Does patient have a Living Will: No Does patient have a Durable POA for Healthcare: No - Code Status/Comfort Care Code Status Assessed: Yes (Full code) Critical Care: No Time Spent Managing Pts Care (In Minutes): 70 <Song Montero - Last Filed: 06/01/22 02:21> Physician Review: Patient Assessed, Agree with Above Assessment and Plan Physician Review Additional Text: Mr. Hope was seen on rounds. He is persistently hypotensive despite IV fluid bolus. Will start on norepinephrine drip and transfer to ICU. Steven Borges M.D. <Steven Borges - Last Filed: 06/01/22 10:39>
[2022-06-01] MEDS ORDERED: NA CHLORIDE 0.9% 500 ML ONE (03:14)
[2022-06-01] MEDS ORDERED: IPRATROPIUM BROM 0.5MG/2.5ML NEB PRN (03:34)
[2022-06-01] MEDS ORDERED: ACETAMINOPHEN 500 MG TAB PO PRN (03:34)
[2022-06-01] MEDS ORDERED: ONDANSETRON 4 MG/2 ML VIAL IV PRN (03:34)
[2022-06-01] MEDS ORDERED: ALBUTEROL 2.5 MG/3 ML NEB SOL NEB PRN ×3 (03:34→14:00)
--- NOTE | 2022-06-01 04:25 | P.PN ---
Date of Service: 06/01/22 Sepsis reassessment complete, BP has improved to around 95 systolic after IVF bolus.
[2022-06-01 04:39] LABS: Absolute Lymphocytes (CBC) 1.1 K/uL (0.7-4.9); Hematocrit 35.5 % (39.6-49.0); Lymphocytes % 7.2 % (15.3-44.8); MCV 87.9 fL (80-100); MPV 6.9 fL (7.6-11.3); RBC Red Blood Cell Count 4.04 M/uL (4.33-5.43)
[2022-06-01 04:58] LABS: Albumin 2.6 g/dL (3.4-5.0); Bilirubin Total 0.8 mg/dL (0.2-1.0); Potassium 4.3 mmol/L (3.5-5.1); Protein, Total 6.7 g/dL (6.4-8.2)
[2022-06-01 06:23] VITALS: BMI 28.1
[2022-06-01] MEDS ORDERED: NOREPINEPHRINE BITARTRATE/D5W 4 MG/250 ML BAG IV SCH (08:21)
[2022-06-01] MEDS: predniSONE 20 MG TAB PO SCH ×2 (08:57→17:33)
[2022-06-01] MEDS ORDERED: DULERA 200/5 (MOMETASONE/FORMOTEROL) INHALER IH SCH (09:00)
--- NOTE | 2022-06-01 12:33 | P.CNS ---
Date of Consult: 06/01/22 Chief Complaint: Sepsis, pneumonia History of Present Illness: Patient is 61 years of age 3 of COPD thromboembolism chronic back pain admitted with pneumonia gastric bypass surgery was found to be in shock hypotension transferred to the ICU complains of not feeling well this happened rather suddenly denies any pulmonary complaints GI or any GI symptoms According to the patient he was doing fine and just suddenly felt unwell Allergies No Known Allergies Allergy (Unverified 04/24/20 11:28) Home Medications: Buprenorphine HCl/Naloxone HCl [Suboxone 2 mg-0.5 mg Sl Film] 1 each SL DAILY 04/24/20 Albuterol Inhaler [Ventolin Inhaler*] 2 puff IH Q6H PRN #1 hfa.aer.ad 04/27/20 Cephalexin [Keflex] 1 tab PO Q6HR 7 Days #28 cap 04/27/20 Furosemide [Lasix] 1 tab PO DAILY #30 tablet 04/27/20 Mometasone/Formoterol [Dulera 200 Mcg/5 Mcg Inhaler] 2 puff IH BID inhaler 04/27/20 predniSONE [Prednisone] 20 mg PO BID 4 Days #8 tablet 04/27/20 - Past Medical/Surgical History Diabetic: No -: Opioid dependence -: Chronic back pain -: COPD -: PE on anticoagulation -: Multiple back surgeries -: Gastric bypass Psychosocial/ Personal History: Patient is employed in sales, 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 - Family History Mother Medical History: Diabetes - Social History Smoking Status: Current every day smoker Alcohol use: No CD- Drugs: No Caffeine use: Yes Place of Residence: Home Review of Systems 10-point ROS is otherwise unremarkable General: Weakness Physical Examination Temp Pulse Resp BP Pulse Ox 97.6 F 63 14 84/49 L 98 06/01/22 08:00 06/01/22 10:00 06/01/22 10:00 06/01/22 10:00 06/01/22 08:00 General: Alert, Oriented x3, Mild distress Respiratory: Clear to auscultation bilaterally, Normal air movement Cardiovascular: No edema, Normal S1 S2 Gastrointestinal: Normal bowel sounds, Soft and benign, Non-distended Laboratory Data (last 24 hrs) 05/31/22 21:17: PT 15.5 H, INR 1.41 05/31/22 21:17: WBC 17.00 H, Hgb 14.2, Hct 42.6, Plt Count 381 05/31/22 21:17: Sodium 132 L, Potassium 4.0, BUN 29 H, Creatinine 1.51 H, Glucose 125 H - Problems (1) Shock Current Visit: Yes Status: Acute Plan: Patient is 61 years of age multiple medical problems admitted with low blood pressure does have a right lower lobe infiltrate with a pleural effusion renal function improving White count elevated recommend changed to meropenem and vancomycin for now see labs reviewed DC levofloxacin CT scan reviewed bilateral decubitus of the chest start on IV normal saline bolus as needed
[2022-06-01] MEDS ORDERED: VANCOMYCIN 2 GM in NA CHLORIDE 0.9% 500 ML IVPB ONE (13:00)
[2022-06-01] MEDS ORDERED: VANCOMYCIN 1 GM in NA CHLORIDE 0.9% 250 ML IVPB SCH (13:00)
[2022-06-01] MEDS: NA CHLORIDE 0.9% 1,000 ML IV SCH ×2 (13:27→21:28)
[2022-06-01] MEDS: Meropenem 1,000 MG in NA CHLORIDE 0.9% 100 ML IV SCH ×2 (13:29→21:23)
[2022-06-01] MEDS ORDERED: ALBUTEROL INHALER 60 PUFF/8 GM IH PRN (13:33)
--- NOTE | 2022-06-01 14:28 | ECHO ---
HEIGHT: 5 ft 8 in WEIGHT: 185 lb 0 oz DATE OF STUDY: 06/01/[address]: Song Montero NP 2-DIMENSIONAL: YES M.MODE: YES DOPPLER: YES COLOR FLOW: YES TDS: YES PORTABLE: YES DEFINITY: BUBBLE STUDY: DIAGNOSIS: HYPOTENSION/ CONGESTIVE HEART FAILURE CARDIAC HISTORY: CATHERIZATION: SURGERY: PROSTHETIC VALVE: PACEMAKER: MEASUREMENTS (cm) DIASTOLIC (NORMALS) SYSTOLIC (NORMALS) IVSd 1.1 (0.6-1.2) LA Diam 3.8 (1.9-4.0) LVEF 62% LVIDd 4.1 (3.5-5.7) LVIDs 2.7 (2.0-3.5) %FS 33% LVPWd 1.2 (0.6-1.2) Ao Diam 2.6 (2.0-3.7) 2 DIMENSIONAL ASSESSMENT: RIGHT ATRIUM: NORMAL LEFT ATRIUM: NORMAL RIGHT VENTRICLE: NORMAL LEFT VENTRICLE: NORMAL TRICUSPID VALVE: MILD TRICUSPID REGURGITATION MITRAL VALVE: NORMAL PULMONIC VALVE: NORMAL AORTIC VALVE: NORMAL PERICARDIAL EFFUSION: NONE AORTIC ROOT: NORMAL LEFT VENTRICULAR WALL MOTION: NORAML DOPPLER/COLOR FLOW: MILD TRICUSPID REGURGITATION COMMENTS: NORMAL LEFT VENTRICULAR EJECTION FRACTION 55-60%. NORMAL WALL MOTION. NORMAL DIASTOLIC FUNCTION. MILD TRICUSPID REGURGITATION. RIGHT VENTRICULAR SYSTOLIC PRESSURE OF 35-40 mmHg. TECHNOLOGIST: ABHILASH HAGEN
[2022-06-01] MEDS ORDERED: RIVAROXABAN 20 MG TABLET PO SCH (17:00)
[2022-06-01] MEDS: XARELTO 20 MG TABLET PO SCH (17:33)
[2022-06-01] MEDS: ARFORMOTEROL TARTRATE 15 MCG/2 ML VIAL.NEB NEB SCH (20:30)
[2022-06-01] MEDS: NALOXONE HCL SL SCH (21:00)
[2022-06-01] MEDS: BUPRENORPHINE HCL SL SCH (21:00)
[2022-06-01] MEDS: DULERA 200/5 (MOMETASONE/FORMOTEROL) INHALER IH SCH (21:23)
[2022-06-02] MEDS ORDERED: Levofloxacin500mg IV 500 MG/100 ML BAG IV SCH
[2022-06-02] MEDS: NA CHLORIDE 0.9% 1,000 ML IV SCH ×4 (05:00→20:27)
[2022-06-02 05:50] LABS: Albumin 2.3 g/dL (3.4-5.0); Bilirubin Total 0.4 mg/dL (0.2-1.0); Potassium 4.2 mmol/L (3.5-5.1); Protein, Total 6.6 g/dL (6.4-8.2)
[2022-06-02 05:52] LABS: Absolute Lymphocytes (CBC) 0.8 K/uL (0.7-4.9); Hematocrit 35.5 % (39.6-49.0); Lymphocytes % 4.4 % (15.3-44.8); MCV 87.8 fL (80-100); MPV 7.4 fL (7.6-11.3); RBC Red Blood Cell Count 4.04 M/uL (4.33-5.43)
[2022-06-02] MEDS: ARFORMOTEROL TARTRATE 15 MCG/2 ML VIAL.NEB NEB SCH ×2 (07:20→20:15)
[2022-06-02] MEDS: predniSONE 20 MG TAB PO SCH (08:09)
[2022-06-02] MEDS: NALOXONE HCL SL SCH ×2 (08:09→17:17)
[2022-06-02] MEDS: BUPRENORPHINE HCL SL SCH ×2 (08:09→17:17)
[2022-06-02] MEDS: Meropenem 1,000 MG in NA CHLORIDE 0.9% 100 ML IV SCH ×2 (08:10→20:27)
[2022-06-02] MEDS: DULERA 200/5 (MOMETASONE/FORMOTEROL) INHALER IH SCH ×2 (08:24→20:28)
[2022-06-02] MEDS ORDERED: RIVAROXABAN 20 MG TABLET PO SCH (09:00)
--- NOTE | 2022-06-02 10:17 | P.PN ---
Subjective Date of Service: 06/02/22 Chief Complaint: Sepsis, pneumonia No acute events overnight. He was transferred to the intensive care unit yesterday due to hypotension, but never required norepinephrine. His blood pressure has been better controlled with adequate mean arterial pressures. He states that he feels better, and would like to go home; however, he continues to experience shortness of breath with exertion. His SpO2 is 95% on 2 L this morning. Review of Systems 10-point ROS is otherwise unremarkable Respiratory: Cough, SOB with Excertion Physical Examination - Vital Signs Temperature: 97.7 F Blood Pressure: 103/58 Pulse: 75 Respirations: 15 Pulse Ox (%): 95 - Physical Exam General: Alert, In no apparent distress, Oriented x3 HEENT: Atraumatic, PERRLA, Mucous membr. moist/pink, EOMI, Sclerae nonicteric Neck: Supple, JVD not distended Respiratory: Diminished, Expiratory wheezes (faint), Rhonchi/gurgles Cardiovascular: No edema, Regular rate/rhythm, Normal S1 S2, No gallops, No rubs, No murmurs Capillary refill: <2 Seconds Gastrointestinal: Normal bowel sounds, Soft and benign, Non-distended, No tenderness, No rebound, No guarding Musculoskeletal: No clubbing Integumentary: No rashes Neurological: Normal speech, Cranial nerves 3-12 intact, Normal affect - Studies Microbiology Data (last 24 hrs): 05/31/22 23:26 Blood - Blood Anaerobic Blood Culture - Final 05/31/22 23:33 Blood - Blood Anaerobic Blood Culture - Final Assessment And Plan - Plan # Concern for Septic Shock secondary to Bilateral Pneumonia He initially met sepsis criteria based on HR > 90 bpm, RR > 20 breaths/min, and WBC > 12,000 and the suspected source is bilateral pneumonia. Severe sepsis is suspected due to concern for tissue hypoperfusion/organ dysfunction based on hypotension (SBP < 90). Septic shock is suspected due to two SBP < 90 mmHg. - Sepsis order set was initiated - Initial Lactate was 1.4 - Blood cultures drawn before antibiotics were given - Broad spectrum antibiotics started: Vancomycin + Meropenem - In regards to fluids: - 30 mL/kg of IV Normal Saline was given based on patient's actual body weight - Sepsis reassessment completed by Song Montero NP at 04:24 AM on 06/01/2022 # Acute Chronic Obstructive Pulmonary Disease Exacerbation (improved) - Pulmonary Medicine consulted and spoke with Dr. Philip - recommendations appreciated - Bronchodilators, steroids per Pulm - Consulted Respiratory Therapy - Supplemental oxygen to maintain SpO2 > 92% - Assess inhaler technique one improved from COPD exacerbation - Encouraged incentive spirometry # History of Pulmonary Embolism (December 2021) - Continue home rivaroxaban # Chronic Pain Syndrome - Continue home suboxone Steven Borges M.D.
--- NOTE | 2022-06-02 12:04 | P.PN ---
Subjective Date of Service: 06/02/22 Chief Complaint: Sepsis, pneumonia Subjective: Improving (Patient is doing much better blood pressure is now stable) Review of Systems General: Weakness Respiratory: Shortness of Breath Physical Examination - Vital Signs Temperature: 97.7 F Blood Pressure: 103/58 Pulse: 75 Respirations: 15 Pulse Ox (%): 95 - Physical Exam General: Alert, Oriented x3 Respiratory: Diminished Cardiovascular: No edema - Studies Microbiology Data (last 24 hrs): 05/31/22 23:26 Blood - Blood Anaerobic Blood Culture - Final 05/31/22 23:33 Blood - Blood Anaerobic Blood Culture - Final Assessment And Plan - Current Problems (Diagnosis) (1) Pneumonia Current Visit: Yes Status: Acute Plan: Patient is 61 years of age admitted with low blood pressure right lower lobe pneumonia and small pleural effusion doing much better hypotension resolved and currently on IV fluid DC prednisone reduce IV fluids so far cultures are negative DC vancomycin continue with meropenem renal function is now normal white count is still mildly elevated Qualifiers: Pneumonia type: due to unspecified organism Laterality: right Physician Review: Patient Assessed, Agree with Above Assessment and Plan
[2022-06-02] MEDS ORDERED: VANCOMYCIN 1.5 GM in NA CHLORIDE 0.9% 500 ML IVPB SCH (13:00)
[2022-06-02] MEDS ORDERED: BISACODYL E.C. 5 MG TAB PO PRN (13:37)
[2022-06-02] MEDS ORDERED: RIVAROXABAN 10 MG TABLET PO SCH (17:00)
[2022-06-02] MEDS: XARELTO 20 MG TABLET PO SCH (17:18)
[2022-06-02] MEDS ORDERED: BENZONATATE 100 MG CAP PO PRN (23:46)
[2022-06-03 03:45] LABS: Hematocrit 35.3 % (39.6-49.0); Lymphocytes % 5.9 % (15.3-44.8); MCV 87.9 fL (80-100); MPV 7.6 fL (7.6-11.3); RBC Red Blood Cell Count 4.02 M/uL (4.33-5.43)
[2022-06-03 03:55] LABS: Albumin 2.2 g/dL (3.4-5.0); Bilirubin Total 0.3 mg/dL (0.2-1.0); Potassium 3.9 mmol/L (3.5-5.1); Protein, Total 6.4 g/dL (6.4-8.2)
[2022-06-03] MEDS: ARFORMOTEROL TARTRATE 15 MCG/2 ML VIAL.NEB NEB SCH ×2 (07:30→19:48)
[2022-06-03] MEDS: Meropenem 1,000 MG in NA CHLORIDE 0.9% 100 ML IV SCH ×2 (08:28→20:32)
[2022-06-03] MEDS: BUPRENORPHINE HCL SL SCH ×2 (08:34→20:33)
[2022-06-03] MEDS: NALOXONE HCL SL SCH ×2 (08:34→20:33)
[2022-06-03] MEDS: DULERA 200/5 (MOMETASONE/FORMOTEROL) INHALER IH SCH ×2 (09:00→20:34)
[2022-06-03] MEDS: NA CHLORIDE 0.9% 1,000 ML IV SCH (12:06)
[2022-06-03] MEDS: XARELTO 20 MG TABLET PO SCH (17:41)
--- NOTE | 2022-06-03 17:43 | P.PN ---
Subjective Date of Service: 06/03/22 Chief Complaint: Sepsis, pneumonia No acute events overnight. He reports that he would like to go home; however, he is experiencing significant shortness of breath and cough with ambulation. He qualifies for home oxygen and case management is assisting us with arranging this. Review of Systems 10-point ROS is otherwise unremarkable Respiratory: Cough, Dry, SOB with Excertion Physical Examination - Vital Signs Temperature: 97 F Blood Pressure: 96/54 Pulse: 67 Respirations: 17 Pulse Ox (%): 96 Assessment And Plan - Plan - Physical Exam General: Alert, In no apparent distress, Oriented x3 HEENT: Atraumatic, PERRLA, Mucous membr. moist/pink, EOMI, Sclerae nonicteric Neck: Supple, JVD not distended Respiratory: Diminished, Expiratory wheezes (faint), Rhonchi/gurgles Cardiovascular: No edema, Regular rate/rhythm, Normal S1 S2, No gallops, No rubs, No murmurs Capillary refill: <2 Seconds Gastrointestinal: Normal bowel sounds, Soft and benign, Non-distended, No tenderness, No rebound, No guarding Musculoskeletal: No clubbing Integumentary: No rashes Neurological: Normal speech, Cranial nerves 3-12 intact, Normal affect # Concern for Septic Shock secondary to Bilateral Pneumonia He initially met sepsis criteria based on HR > 90 bpm, RR > 20 breaths/min, and WBC > 12,000 and the suspected source is bilateral pneumonia. Severe sepsis is suspected due to concern for tissue hypoperfusion/organ dysfunction based on hypotension (SBP < 90). Septic shock is suspected due to two SBP < 90 mmHg. - Sepsis order set was initiated - Initial Lactate was 1.4 - Blood cultures drawn before antibiotics were given - Broad spectrum antibiotics started: Vancomycin + Meropenem - In regards to fluids: - 30 mL/kg of IV Normal Saline was given based on patient's actual body weight - Sepsis reassessment completed by Song Montero NP at 04:24 AM on 06/01/2022 # Acute Chronic Obstructive Pulmonary Disease Exacerbation (improved) # Acute Hypoxic, Hypercapnic Respiratory Failure due to above - Pulmonary Medicine consulted and spoke with Dr. Philip - recommendations appreciated - Bronchodilators, steroids per Pulm - Consulted Respiratory Therapy - Supplemental oxygen to maintain SpO2 > 92% - Assess inhaler technique one improved from COPD exacerbation - Encouraged incentive spirometry # History of Pulmonary Embolism (December 2021) - Continue home rivaroxaban # Chronic Pain Syndrome - Continue home suboxone Steven Borges M.D.
--- NOTE | 2022-06-03 19:00 | RAD REPORT ---
EXAM DESCRIPTION: RAD - Chest Single View - 06/03/2022 6:49 pm CLINICAL HISTORY: right sided chest pain COMPARISON: Chest Single View dated 04/25/2020; Chest Pa And Lat (2 Views) dated 04/24/2020; Abdomen 1 View (KUB) dated 05/21/2019; Abdomen 1 View (KUB) dated 05/07/2019 FINDINGS: Lines: None. Lungs: Bilateral interstitial and airspace disease. Pleural: Moderate right effusion. Cardiac: Cardiomegaly. Mediastinum: Within normal limits. Bones: No acute fractures. Spinal fusion hardware. Other: None IMPRESSION: Interstitial and airspace disease bilaterally again identified. Worsening consolidation of the right lung base likely a combination of an enlarging pleural effusion an underlying consolidat ion. These findings may represent pneumonia with background of interstitial edema.
[2022-06-04] MEDS: NA CHLORIDE 0.9% 1,000 ML IV SCH (01:50)
[2022-06-04 04:15] LABS: Absolute Lymphocytes (CBC) 1.5 K/uL (0.7-4.9); Hematocrit 37.2 % (39.6-49.0); Lymphocytes % 12.1 % (15.3-44.8); MCV 88.4 fL (80-100); MPV 7.2 fL (7.6-11.3); RBC Red Blood Cell Count 4.21 M/uL (4.33-5.43)
[2022-06-04 04:29] LABS: Albumin 2.1 g/dL (3.4-5.0); Bilirubin Total 0.4 mg/dL (0.2-1.0); Potassium 3.8 mmol/L (3.5-5.1)
[2022-06-04 08:07] VITALS: BP 116/56; TEMP 97.4
[2022-06-04] MEDS: ARFORMOTEROL TARTRATE 15 MCG/2 ML VIAL.NEB NEB SCH (08:37)
--- NOTE | 2022-06-04 08:41 | RAD REPORT ---
EXAM DESCRIPTION: CT - Thorax Wo Con CLINICAL HISTORY: Chest pain pneumonia COMPARISON: Chest For Pe Angio dated 04/24/2020 FINDINGS: Underlying emphysematous changes with pulmonary fibrosis is present. Lung volumes are redu erendira bilaterally. In addition there is a significant right lower lobe airspace opacity present with in ternal necrosis or cavitation suspected. This likely represents pneumonia. There is evidence of a sma ll loculated right pleural effusion trace left pleural effusion. Small amount of pericardial fluid pr esent. Mild adenopathy in the mediastinum and hilar regions. Hardware is present in the thoracic spine. No gross upper abdominal finding. All CT scans are performed using dose optimization technique as appropriate and may include automated exposure control or mA/KV adjustment according to patient size. IMPRESSION: Underlying emphysematous and fibrotic changes are present in the lungs.There is a small loculated right pleural effusion with airspace opacity in the right lung base with internal fluid den sity likely a cavitary or necrotic pneumonia.
[2022-06-04] MEDS: BUPRENORPHINE HCL SL SCH (09:00)
[2022-06-04] MEDS: NALOXONE HCL SL SCH (09:00)
[2022-06-04 09:08] VITALS: O2SAT 91
[2022-06-04] MEDS: DULERA 200/5 (MOMETASONE/FORMOTEROL) INHALER IH SCH (09:46)
[2022-06-04] MEDS: Meropenem 1,000 MG in NA CHLORIDE 0.9% 100 ML IV SCH (09:46)
--- NOTE | 2022-06-04 10:11 | P.DS ---
Admission Date: 06/01/22 Discharge Date: 06/04/22 Disposition: ROUTINE DISCHARGE Discharge Condition: GOOD Reason for Admission: Sepsis, pneumonia Consultations: 1. Pulmonary Medicine Hospital Course: DIAGNOSES: # Concern for Septic Shock secondary to Bilateral Pneumonia # Acute Chronic Obstructive Pulmonary Disease Exacerbation (improved) # Acute Hypoxic, Hypercapnic Respiratory Failure due to above # History of Pulmonary Embolism (December 2021) # Chronic Pain Syndrome HOSPITAL COURSE: Mr. Steven Hope is a 61 year old male with a past medical history significant for chronic obstructive pulmonary disease, history of pulmonary embolism on rivaroxaban, and chronic pain syndrome on suboxone who was admitted to the [facility] on 06/01/2022 for septic shock due to bilateral pneumonia. He was admitted to the Medicine service. Upon further evaluation, he was found to have bilateral pneumonia and concern for septic shock due to hypotension. Chest x-ray revealed, "interstitial and airspace disease bilaterally again identified. Worsening consolidation of the right lung base likely a combination of an enlarging pleural effusion an underlying consolidation. These findings may represent pneumonia with background of interstitial edema." CT chest revealed, "underlying emphysematous and fibrotic changes are present in the lungs.There is a small loculated right pleural effusion with airspace opacity in the right lung base with internal fluid density likely a cavitary or necrotic pneumonia." He was treated with antibiotics, with significant improvement in his symptoms. Pulmonary Medicine was consulted and he was evaluated by Dr. Philip. Per Dr. Philip, he believes that his CT chest findings are consistent with a rightsi ded loculated effusion. He has cleared him for discharge with 14 days of amoxicillinclavulanate and doxycycline. He will follow him up in clinic with a chest x-ray in 2 weeks for possible decortication. Mr. Hope was in agreement this plan I walked around the nursing station with Mr. Hope and he did well, without any issues. He qualified for home oxygen and with the assistance of case management, this was arranged. On 06/04/2022, he was seen on morning rounds and deemed medically stable for discharge. He was discharged with instructions to schedule follow-up appointments with his PCP and with Pulmonary Medicine (Dr. Philip). He was provided prescriptions for amoxicillin-clavulanate and doxycyline. He was given the opportunity to ask questions and reported no further questions. Furthermore, all questions were answered to the best of my ability. A copy of this discharge summary will be sent to the above providers to facilitate continuity of care. Today, I personally spent 20 minutes on his case, of which greater than 50% of the time was spent in patient education, counseling, and coordination of care as described above. - Physical Exam General: Alert, In no apparent distress, Oriented x3 HEENT: Atraumatic, PERRLA, Mucous membr. moist/pink, EOMI, Sclerae nonicteric Neck: Supple, JVD not distended Respiratory: Diminished, but clear to auscultation bilaterally Cardiovascular: No edema, Regular rate/rhythm, Normal S1 S2, No gallops, No r ubs, No murmurs Capillary refill: <2 Seconds Gastrointestinal: Normal bowel sounds, Soft and benign, Non-distended, No tenderness, No rebound, No guarding Musculoskeletal: No clubbing Integumentary: No rashes Neurological: Normal speech, Cranial nerves 3-12 intact, Normal affect Vital Signs/Physical Exam: Temp Pulse Resp BP Pulse Ox 97.4 F 75 18 116/56 L 89 L 06/04/22 08:00 06/04/22 08:00 06/04/22 08:00 06/04/22 08:00 06/04/22 08:00 Laboratory Data at Discharge: WBC 12.40 K/uL (4.3-10.9) H 06/04/22 03:59 Hgb 12.2 g/dL (13.6-17.9) L 06/04/22 03:59 Hct 37.2 % (39.6-49.0) L 06/04/22 03:59 Plt Count 356 K/uL (152-406) 06/04/22 03:59 PT 15.5 SECONDS (9.5-12.5) H 05/31/22 21:17 INR 1.41 05/31/22 21:17 Sodium 139 mmol/L (136-145) 06/04/22 03:59 Potassium 3.8 mmol/L (3.5-5.1) 06/04/22 03:59 BUN 20 mg/dL (7-18) H 06/04/22 03:59 Creatinine 0.71 mg/dL (0.55-1.3) 06/04/22 03:59 Glucose 97 mg/dL (74-106) 06/04/22 03:59 Total Bilirubin 0.4 mg/dL (0.2-1.0) 06/04/22 03:59 AST 16 U/L (15-37) 06/04/22 03:59 ALT 19 U/L (12-78) 06/04/22 03:59 Alkaline Phosphatase 56 U/L (45-117) 06/04/22 03:59 Home Medications: Buprenorphine HCl/Naloxone HCl [Suboxone 2 mg-0.5 mg Sl Film] 1 each SL BID 04/24/20 Albuterol Inhaler [Ventolin Inhaler*] 2 puff IH Q6H PRN #1 hfa.aer.ad 04/27/20 Mometasone/Formoterol [Dulera 200 Mcg/5 Mcg Inhaler] 2 puff IH BID inhaler 04/27/20 Rivaroxaban [Xarelto] 20 mg PO DAILY 06/01/22 Amox/Clavulanate [Augmentin 875-125 Tab] 875 mg PO BID 14 Days #28 tab 06/04/22 Doxycycline Hyclate 100 mg PO BID 14 Days #28 tab 06/04/22 New Medications: Amox/Clavulanate [Augmentin 875-125 Tab] 875 mg PO BID 14 Days #28 tab Doxycycline Hyclate 100 mg PO BID 14 Days #28 tab Physician Discharge Instructions: 1. Please schedule a follow-up appointment with your PCP (KRISTOPHER Thomas) in 3-5 days 2. Please schedule a follow-up appointment with Pulmonary Medicine (Dr. Philip) in 5-7 days - He will schedule you for a repeat chest x-ray in 2-3 weeks Diet: AHA Activity: Ad dora Followup: Blu Philip MD [ACTIVE - CAN ADMIT] - Frank Ross PA [Primary Care Provider] - Time spent managing pt's care (in minutes): 20
--- NOTE | 2022-06-04 10:52 | P.PN ---
Subjective Date of Service: 06/04/22 Chief Complaint: Right-sided loculated effusion Subjective: Improving (Patient is doing well has had some chest discomfort on the right side otherwise has improved) Review of Systems General: Weakness Respiratory: Shortness of Breath Physical Examination - Vital Signs Temperature: 97.4 F Blood Pressure: 116/56 Pulse: 75 Respirations: 18 Pulse Ox (%): 89 - Physical Exam General: Alert, Oriented x3, Mild distress Respiratory: Crackles/rales (Crackles in the right base diminished air entry) Cardiovascular: No edema, Normal S1 S2 Assessment And Plan - Current Problems (Diagnosis) (1) Loculated pleural effusion Current Visit: Yes Status: Acute Plan: Patient has a right-sided loculated effusion and count is declining renal function is now normal patient is afebrile cultures are all negative plan to d ischarge him on Augmentin and doxycycline for at least 2 weeks repeat chest x- ray in 2 weeks may need decortication oxygenation blood pressure is all stable discussed with the patient stable for discharge Physician Review: Patient Assessed, Agree with Above Assessment and Plan
== END 2022-06-04 11:07 | disposition home or self-care (01) | DRG 871 ==
LOC: ER 20:02 → ERHOLD 06-01 03:29 → 2ND 06-01 05:25 → 3RD-ICU 06-01 10:30 → 4TH 06-02 14:06
PROVIDERS: ADMIT Internal Medicine; ATTEND Internal Medicine
DX: A41.9 Sepsis, unspecified organism (principal); J18.9 Pneumonia, unspecified organism; J96.21 Acute and chronic respiratory failure with hypoxia; J96.22 Acute and chronic respiratory failure with hypercapnia; J44.1 Chronic obstructive pulmonary disease with (acute) exacerbation; J44.0 Chronic obstructive pulmonary disease with (acute) lower respiratory infection; M54.9 Dorsalgia, unspecified; G89.4 Chronic pain syndrome; F17.210 Nicotine dependence, cigarettes, uncomplicated; Z98.84 Bariatric surgery status; Z79.01 Long term (current) use of anticoagulants; Z79.52 Long term (current) use of systemic steroids; Z79.899 Other long term (current) drug therapy; Z86.711 Personal history of pulmonary embolism; Z20.822 Contact with and (suspected) exposure to COVID-19; W01.0XXA Fall on same level from slipping, tripping and stumbling without subsequent striking against object, initial encounter; Y93.9 Activity, unspecified; Y92.9 Unspecified place or not applicable
CPT/HCPCS: 36415; 71045; 71250; 74176; 80048; 80053; 80202; 82805; 83605; 85025; 85610; 87040; 87070; 87205; 93306; 94010; 94760; 96361; 96365; 96375; 97116; 97161; 99285; J2185; J3370; J3535; J7030; J7040; J7512; J7605; U0003

== ENCOUNTER 2022-08-31 08:51 | Inpatient (IN) | payer BC ==
--- OUTSIDE RECORDS SUMMARY | 2022-08-31 09:04 | XMS REPORT | Continuity of Care Document ---
:1960 Author Organization [facility] t Address [address] [place] [address] Care Team Providers Name Role Phone Hema [...] teresa 00 l Scoliosis Scoliosis Disease Active 2019- Met hodi due to due to 08-21 degenerati degenerati 00:00: Ho spita ve disease ve disease 00 l of spine of spine in adult in adult patient patient Lumbar Lumbar Disease Active 2019 Methodi stenosis stenosis 08-21 with with 00:00: Hospita neurogenic neurogenic 00 l claudicati claudicati on on [id number] Benign Problem Common prostatic Spirit hyperplasi - [facility] with [facility] symptoms [id number] Nicotine Problem Commo n dependence Spirit , - [facility], [facility] uncomplica Med[facility] Allergies, Adverse Reactions, Alerts Allergy Allergy Status [...] Start Date Stop Date Source Natural father [facility] Natural mother Lung cancer [facility] Social History Social Habit Start Date Stop Date Quantity Comments Source History [facility] Yarsanism Alcohol Std Drinks Hospit al History [facility] Alcohol Binge Hospital History of Tobacco Current Smoker Co [facility]mon Spirit - Use [facility] Alcohol intake 2018-10-25 2018-10-25 Current drinker [facility] 00:00:00 00:00:00 of alcohol Hospital (finding) History SDOH 2018-10-20 2018-10-20 1 Yarsanism Alcohol Frequency 00:00:00 00:00:00 Hospita l Alcohol Comment 2018-10-02 2018-10-02 social Yarsanism 00:00:00 00:00:00 Hospital Cigarettes smoked 2018-10-02 2018-10-[address] current (pack per 00:00:00 00:00:00 Hospita day) - Reported Cigarette 2018-10-02 2018-10-02 Yarsanism pack-years 00:00:00 00:00:00 Hospital Tobacco use and 2018-10-02 2018-10-02 Smokeless tobacco Me [facility] exposure 00:00:00 00:00:00 non-user Hospital Sex Ass[birth year] At [birth year] Yarsanism 00:00:00 00:00:00 Hospital Smoking Status Start Date Stop Date Source Current Smoker 2022-05-12 00:00:00 Common Spiri t - [facility] Ex-smoker 2018-10-02 00:00:00 2018-10-02 [facility] Ordered Filled Start Stop Current Ordering Indication Dosage Frequency Signature Comments Components Source Medication Medication Date Date Medication? Clinician (SIG) Name Name cyclobenzap Yes 10mg QD Take 10 mg Methodi rine 4-[address] (FLEXERIL) 17:16: daily. Hospi ta 10 mg 59 l tablet cholecalcif 0 Yes 1000U QD Take 1,000 Methodi josy, 4-[address] vitamin D3, 17:16: mouth Hospi ta (VITAMIN 59 daily. l D3) 1,000 unit tablet ascorbic 0 Yes 500mg QD Take 500 Meth suma acid, 4-[address] vitamin C, 17:16: mouth Hospit a (VITAMIN C) 59 daily. l 500 MG tablet cyclobenzap Yes 10mg QD Take 10 mg Methodi rine 4-[address] (FLEXERIL) 17:16: daily. Hospi ta 10 mg 59 l tablet cholecalcif Yes 1000U QD Take 1,000 Methodi josy, 4-[address] vitamin D3, 17:16: mouth Hospi ta (VITAMIN 59 daily. l D3) 1,000 unit tablet ascorbic 0 Yes 500mg QD Take 500 Meth suma acid, 4-[address] vitamin C, 17:16: mouth Hospit a (VITAMIN C) 59 daily. l 500 MG tablet testosteron 0 Yes Q30D every 30 Me thodi e cypionate 3-10 (thirty) st (DEPOTESTOT 00:00: days. Hospi ta ERONE 00 l CYPIONATE) 200 mg/mL injection testosteron 0 Yes Q30D every 30 Me thodi e cypionate 3-10 (thirty) st (DEPOTESTOT 00:00: days. Hospi ta ERONE 00 l CYPIONATE) 200 mg/mL injection hydroCHLORO hydroCHLORO No 1{table QD hydroCHLOR thiazide 25 thiazide 25 t_in_th Othiazide MG MG e_morni 25 MG ng} Cyclobenzap Cyclobenzap No 1{table QD Cyclobenza rine [...] HCl 10 MG t} HCl 10 MG Vital Signs Vital Name Observation Time Observation Value Comments Source height 2022-05-12 09:30:00 66 [in_i] [facility] weight 2022-05-12 09:30:00 180.4 [lb_av] [facility] temperature 2022-05-12 09:30:00 98.3 [degF] [facility] bmi 2022-05-12 09:30:00 29.11 kg/m2 [facility] oximetry 2022-05-12 09:30:00 98 % [facility] respiratory rate 2022-05-12 09:30:00 16 /min Comm on [facility] blood pressure 2022-05-12 09:30:00 114 mm[Hg] [facility] systolic [facility] blood pressure 2022-05-12 09:30:00 63 mm[Hg] [facility] diastolic [facility] Procedures This patient has no known procedures. Plan of Care Planned Activity Planned Date Details Comments Source Future Scheduled 2022-08-31 COVID-19 VACCINE (#1) [facility] Test 08:59:32 [code = COVID-19 VACCINE (#1)] Future Scheduled 2022-08-31 Hepatitis C screening [facility] Test 08:59:32 (procedure) [code = 613054328] Future Scheduled 2022-08-31 COLONOSCOPY SCREENING [facility] Test 08:59:32 [code = COLONOSCOPY SCREENING] Future Scheduled 2022-08-31 SHINGLES VACCINES (1 Met [facility] Test 08:59:32 of 2) [code = SHINGLES VACCINES (1 of 2)] Future Scheduled 2022-08-31 INFLUENZA VACCINE Method [facility] Hospital Test 08:59:32 [code = INFLUENZA VACCINE] Future Scheduled 2022-05-28 HEPATITIS B VACCINES Met [facility] Test 19:13:27 (1 of 3 - 3-dose series) [code = HEPATITIS B VACCINES (1 of 3 - 3-dose series)] Future Scheduled 2022-05-28 COVID-19 VACCINE (#1) [facility] Test 19:13:27 [code = COVID-19 VACCINE (#1)] Future Scheduled 2022-05-28 Hepatitis C screening [facility] Test 19:13:27 (procedure) [code = 230300290] Future Scheduled 2022-05-28 COLONOSCOPY SCREENING [facility] Test 19:13:27 [code = COLONOSCOPY SCREENING] Future Scheduled 2022-05-28 SHINGLES VACCINES (1 Met [facility] Test 19:13:27 of 2) [code = SHINGLES VACCINES (1 of 2)] Future Scheduled 2022-05-28 INFLUENZA VACCINE Method [facility] Test 19:13:27 [code = INFLUENZA VACCINE] Encounters Start End Encounter Admission Attending Care Care Encounter Source Date/Time Date/Time Type Type Clinicians Facility Department ID 2022-05-12 [facility] [id number] Common 08:52:03 Igor [id number] [facility] 2022-05-12 2022-05-12 OFFICE [facility] [id number] Co mmon 00:00:00 00:00:00 VISIT NEW Spir it PT LEVEL 2 - [facility] 2022-01-18 2022-01-23 Inpatient AMY, [facility] [id number] 06:18:00 11:55:00 [facility] 2021-12-04 2021-12-04 [facility] [id number] 09:47:00 13:54:00 [place] 2019-12-05 2019-12-05 [facility] [id number] Pax 00:00:00 00:00:00 [facility] 2019-10-08 2019-10-08 [facility] [id number] Pax 00:00:00 00:00:00 BERNARDO [address] 2019-10-08 2019-10-08 Outpatient [facility], [facility] [id number] Pax 00:00:00 00:00:00 BERNARDO [address] 2019-10-08 2019-10-08 Outpatient [facility] [id number] Pax 00:00:00 00:00:00 BERNARDO [address] 2019-10-08 2019-10-08 Outpatient [facility] [id number] Pax 00:00:00 00:00:00 BERNARDO [address] 2019-10-08 2019-10-08 Outpatient [facility] [id number] Pax 00:00:00 00:00:00 BERNARDO [address] 2019-10-08 2019-10-08 Outpatient [facility] [id number] Pax 00:00:00 00:00:00 BERNARDO [address] Results This patient has no known results.
[2022-08-31] MEDS ORDERED: Ringers Lactate 1,000 ML IV ONE (09:57)
[2022-08-31 10:03] LABS: Absolute Lymphocytes (CBC) 1.3 K/uL (0.7-4.9); Hematocrit 37.7 % (39.6-49.0); Lymphocytes % 10.7 % (15.3-44.8); MPV 7.3 fL (7.6-11.3); RBC Red Blood Cell Count 4.44 M/uL (4.33-5.43)
[2022-08-31 10:16] LABS: Albumin 2.7 g/dL (3.4-5.0); Bilirubin Total 0.3 mg/dL (0.2-1.0); Potassium 4.3 mmol/L (3.5-5.1); Protein, Total 7.4 g/dL (6.4-8.2)
[2022-08-31 10:47] LABS: Urine Blood Negative (Negative); Urine Glucose Negative (Negative); Urine Protein Negative (Negative); Urine Specific Gravity 1.025 (1.005-1.030); Urine pH 5.5 (5.0-7.0)
--- NOTE | 2022-08-31 10:52 | RAD REPORT ---
EXAM DESCRIPTION: CT - Chest For Pe Angio - 08/31/2022 10:34 am CLINICAL HISTORY: SOB COMPARISON: Thorax Wo Con dated 06/04/2022; Chest For Pe Angio dated 04/24/2020 TECHNIQUE: Dynamically enhanced 3 mm thick images of the chest were obtained during administration o f approximately 150mL Isovue 370 IV contrast. Coronal and oblique MIP reconstruction images were gene rated and reviewed. Exam utilizes a protocol to evaluate the pulmonary arterial tree. All CT scans are performed using dose optimization technique as appropriate and may include automated exposure control or mA/KV adjustment according to patient size. FINDINGS: No pulmonary emboli are identified. The aorta as imaged shows no acute or suspicious finding. No pericardial thickening or effusion. A large left pleural effusion is present filling the majority of the left hemithorax. There is near c omplete left lower lobe atelectasis. Areas of airspace consolidation are seen within a contracted lef t lower lobe. In the left upper lobe there are numerous areas of subpleural nodularity and subpleural airspace opacification similar or progressive from the May 2022 study. Patient has underlying f ibro emphysematous lung disease. Several small subpleural bulla and bleb noted throughout the upper l matthew horne. Small right pleural effusion is present. This has a bi-convex configuration which could i ndicate loculation. There is partial atelectasis of the adjacent right lower lobe. No abnormal mediastinal lymphadenopathy. There are bilateral small hilar lymph nodes that are probabl y reactive. No chest wall masses or abnormal axillary lymphadenopathy. IMPRESSION: No pulmonary emboli. Large left pleural effusion occupying more than 50% of the left hemithorax. There is near complete at electasis of the left lower lobe. Small right pleural effusion is seen with a biconvex configuration which could indicate loculation. T here is partial atelectasis of the right lower lobe. Left lower lobe airspace opacification and multiple sites of subpleural left upper lobe airspace opac ification present. Superimposed left lung field pneumonia is possible. Significant underlying fibro emphysematous lung disease.
--- NOTE | 2022-08-31 10:56 | RAD REPORT ---
EXAM DESCRIPTION: CT - Abdomen Pelvis W Contrast - 08/31/2022 10:34 am CLINICAL HISTORY: ABD PAIN COMPARISON: No comparisons TECHNIQUE: Biphasic, helical CT imaging of the abdomen and pelvis was performed following 100 ml non -ionic IV contrast. Oral contrast: No. All CT scans are performed using dose optimization technique as appropriate and may include automated exposure control or mA/KV adjustment according to patient size. FINDINGS: Chest findings are detailed in separate report. Liver is grossly abnormal. In segment IV there is a large heterogeneous mostly hypodense mass at leas t 6.2 cm AP x 7.2 cm TR. A few small cysts are scattered in the liver. There are multiple additional areas of decreased attenuation showing suspicious characteristics. Liver has a slightly nodular capsu le contour. No portal vein thrombus identifiable. Spleen and pancreas show no suspicious findings. Gallbladder and biliary tree are also without suspic ious finding. Symmetric renal function is seen with no hydronephrosis or suspicious renal mass. No pyelonephritis o r acute parenchymal process. Renal cysts are present. Urinary bladder is mostly contracted limiting a ssessment. No adrenal abnormalities. No dilated bowel loops or bowel wall thickening. No free air or pneumatosis. No omental thickening. No bulky lymphadenopathy identified. No hernia defects seen. Patient has extensive degenerative changes as well is very extensive surgical change in the lumbar sp ine and lower thoracic spine. The hardware present causes very substantial spray artifact limiting ab dominal and pelvic CT detail. IMPRESSION: Large 7 centimeter mass in segment IV of the liver suspicious for malignancy. There are multiple additional small liver lesions throughout both lobes also seen as suspicious. No abnormal lymphadenopathy. No omental thickening or other evidence for distant disease.
--- NOTE | 2022-08-31 11:16 | EDPHYS ---
Physician Documentation [facility] Name: Steven Hope Age: 62 yrs Sex: Male : 1960 Arrival Date: 08/31/2022 Time: 08:53 Bed 20 Private MD: ED Physician Joleen Ruiz HPI: 08/31 08:57 This 62 yrs old Male presents to ER via Ambulatory with complaints of Back Pain. jmm 08:57 The patient presents with pain that is acute. Onset: The symptoms/episode jmm began/occurred gradually, 1 day(s) ago. Is a 62-year-old male with history of kidney stones the presents emerged part with complaints of left lower back pain beginning approximately a day ago. Patient also states he feels weak and short of breath and is concerned that he may have sepsis. Patient was hospitalized for pneumonia 3 months ago.. Historical: - Allergies: 09:08 No Known Allergies; ld1 - PMHx: 09:08 Back pain; Kidney stones; ld1 - PSHx: 09:08 back surgery; Gastric Bypass; ld1 - Immunization history:: Adult Immunizations up to date, Client reports receiving the 2nd dose of the Covid vaccine. - Social history:: Smoking status: Patient reports the use of cigarette tobacco products, Patient/guardian denies using tobacco, Stopped _ months ago 2 Patient/guardian denies using alcohol. ROS: 08:57 Respiratory: Positive for shortness of breath. jmm 08:57 Back: Positive for pain with movement. 08:57 All other systems are negative. Exam: 08:57 Constitutional: This is a well developed, well nourished patient who is awake, alert, jmm and in no acute distress. Head/Face: atraumatic. Eyes: EOMI, no conjunctival erythema appreciated ENT: Moist Mucus Membranes Neck: Trachea midline, Supple Chest/axilla: Normal chest wall appearance and motion. Cardiovascular: Regular rate and rhythm. No edema appreciated Respiratory: Normal respirations, no respiratory distress appreciated Abdomen/GI: Non distended Back: Normal ROM Skin: General appearance color normal MS/ Extremity: Moves all extremities, no obvious deformities appreciated, no edema noted to the lower extremities Neuro: Awake and alert Psych: Behavior is normal, Mood is normal, Patient is cooperative and pleasant Vital Signs: 09:03 Temp 97.7(O); ld1 09:03 BP 110 / 77; Pulse 90; Resp 18; Temp 97.7(O); Weight 74.84 kg; Height 5 ft. 8 in. ld1 (172.72 cm); Pain 5/10; 09:03 Pulse Ox 85% on R/A; ld1 10:49 BP 106 / 74; Pulse 75; Pulse Ox 95% on R/A; ap3 09:03 Body Mass Index 25.09 (74.84 kg, 172.72 cm) ld1 MDM: 08:57 Patient medically screened. [facility] 11:13 Data reviewed: vital signs, nurses notes. Management of patient was discussed with the jmm following: Dr. Ruiz, Dr. Philip. I considered the following discharge prescriptions or medication management in the emergency department Medications were administered in the Emergency Department. See MAR. Counseling: I had a detailed discussion with the patient and/or guardian regarding: the historical points, exam findings, and any diagnostic results supporting the discharge/admit diagnosis, lab results, radiology results, the need for further work-up and treatment in the hospital. ED course: I discussed the patient with Dr. Philip whom will consult on admission. I discussed the patient with KVNG Parker whom accepted the patient to Dr. Fay service. . 08/31 09:04 Order name: CBC with Diff; Complete Time: 10:11 [facility] 08/31 09:04 Order name: CMP; Complete Time: 10:19 [facility] 08/31 09:04 Order name: Lipase; Complete Time: 10:19 [facility] 08/31 09:57 Order name: COVID-19/FLU A+B; Complete Time: 14:17 [facility] 08/31 10:47 Order name: Urine Dipstick-Ancillary; Complete Time: 10:53 [facility] 08/31 11:07 Order name: Lactate w/ 2H reflex if indic. [facility] 08/31 11:07 Order name: Blood Culture Adult (2) [facility] 08/31 12:02 Order name: Magnesium [facility] 08/31 12:02 Order name: T4 Free [facility] 08/31 12:02 Order name: Thyroid Stimulating Hormone [facility] 08/31 12:02 Order name: Urinalysis [facility] 08/31 12:02 Order name: Basic Metabolic Panel [facility] 08/31 12:02 Order name: Basic Metabolic Panel [facility] 08/31 12:02 Order name: CBC with Automated Diff [facility] 08/31 09:04 Order name: IV Saline Lock; Complete Time: 09:50 [facility] 08/31 09:04 Order name: Labs collected and sent; Complete Time: 09:50 [facility] 08/31 09:04 Order name: Urine Dipstick-Ancillary (obtain specimen); Complete Time: 10:47 [facility] 08/31 09:31 Order name: CT Chest For PE Angio; Complete Time: 10:53 [facility] 08/31 09:31 Order name: CT Abd/Pelvis - IV Contrast Only; Complete Time: 10:57 [facility] 08/31 10:49 Order name: Labs - recollect needed: recollect covid in pcr tube; Complete Time: 11:22 08/31 12:02 Order name: Heart Healthy [facility] 08/31 12:02 Order name: CBC with Automated Diff [facility] 08/31 12:02 Order name: Phosphorus [facility] 08/31 12:02 Order name: Phosphorus [facility] 08/31 12:04 Order name: Hemoglobin A1c [facility] 08/31 12:04 Order name: Lipid Profile [facility] Administered Medications: 09:57 Drug: Lactated Ringers Solution 1000 ml Route: IV; Rate: 1000 bolus; Site: right ap3 antecubital; 14:38 Drug: Zosyn (piperacillin-tazobactam) 3.375 grams Route: IVPB; Infused Over: 60 mins; ap3 Site: right antecubital; Disposition Summary: 08/31/22 11:16 Hospitalization Ordered Hospitalization Status: Inpatient Admission [facility] Provider: Theodora Alberto [facility] jmm Condition: Stable jmm Problem: an acute exacerbation jmm Symptoms: are unchanged [facility] Bed/Room Type: Standard [facility] Room Assignment: 417(08/31/22 12:48) bd Diagnosis - Hypoxia jmm - Pleural Effusion [facility] Forms: - Medication Reconciliation Form jmm - SBAR form [facility] Signatures: Dispatcher [employer] EDMS Tash Avalos Joel, PA PA jmm Linda Scott RN RN ap3 Gloria Jensen RN RN ld1 Corrections: (The following items were deleted from the chart) 12:48 11:16 jmm bd
--- NOTE | 2022-08-31 11:16 | ER ---
Nurse's Notes [facility] Name: Steven Hope Age: 62 yrs Sex: Male : 1960 Arrival Date: 08/31/2022 Time: 08:53 Bed 20 Private MD: Diagnosis: Hypoxia;Pleural Effusion Presentation: 08/31 09:03 Chief complaint: Patient states: Back pain X 1 week. Pt reports pain radiating to left ld1 side this morning. "I think it could be a kidney stone." Pt 85% RA at time of arrival to ER. Pt denies shortness of breath. Coronavirus screen: At this time, the client does not indicate any symptoms associated with coronavirus-19. Ebola Screen: No symptoms or risks identified at this time. Initial Sepsis Screen: Does the patient meet any 2 criteria? No. Patient's initial sepsis screen is negative. Does the patient have a suspected source of infection? No. Patient's initial sepsis screen is negative. Risk Assessment: Do you want to hurt yourself or someone else? Patient reports no desire to harm self or others. Onset of symptoms was August 31, 2022. 09:03 Method Of Arrival: Ambulatory ld1 09:03 Acuity: OTILIA 3 ld1 Triage Assessment: 09:08 General: Appears in no apparent distress. comfortable, Behavior is calm, cooperative, ld1 appropriate for age. Pain: Complains of pain in back Pain does not radiate. Pain currently is 5 out of 10 on a pain scale. Quality of pain is described as throbbing. EENT: No signs and/or symptoms were reported regarding the EENT system. Neuro: Level of Consciousness is awake, alert, obeys commands, Oriented to person, place, time, situation. Cardiovascular: Capillary refill < 3 seconds Patient's skin is warm and dry. Respiratory: Airway is patent Respiratory effort is even, unlabored. GI: Abdomen is flat, non-distended. : No signs and/or symptoms were reported regarding the genitourinary system. Derm: No signs and/or symptoms reported regarding the dermatologic system. Musculoskeletal: No signs and/or symptoms reported regarding the musculoskeletal system. Historical: - Allergies: 09:08 No Known Allergies; ld1 - PMHx: 09:08 Back pain; Kidney stones; ld1 - PSHx: 09:08 back surgery; Gastric Bypass; ld1 - Immunization history:: Adult Immunizations up to date, Client reports receiving the 2nd dose of the Covid vaccine. - Social history:: Smoking status: Patient reports the use of cigarette tobacco products, Patient/guardian denies using tobacco, Stopped _ months ago 2 Patient/guardian denies using alcohol. Screenin:48 [facility] ED Fall Risk Assessment (Adult) History of falling in the last 3 months, ap3 including since admission No falls in past 3 months (0 pts) Confusion or Disorientation No (0 pts) Intoxicated or Sedated No (0 pts) Impaired Gait No (0 pts) Mobility Assist Device Used No (0 pt) Altered Elimination No (0 pt) Score/Fall Risk Level. Abuse screen: Denies threats or abuse. Nutritional screening: No deficits noted. Tuberculosis screening: No symptoms or risk factors identified. Assessment: 12:04 Reassessment: Patient and/or family updated on plan of care and expected duration. Pain ap3 level reassessed. Patient is alert, oriented x 3, equal unlabored respirations, skin warm/dry/pink. 14:45 Reassessment: report given to ap3 Vital Signs: 09:03 Temp 97.7(O); ld1 09:03 BP 110 / 77; Pulse 90; Resp 18; Temp 97.7(O); Weight 74.84 kg; Height 5 ft. 8 in. ld1 (172.72 cm); Pain 5/10; 09:03 Pulse Ox 85% on R/A; ld1 10:49 BP 106 / 74; Pulse 75; Pulse Ox 95% on R/A; ap3 09:03 Body Mass Index 25.09 (74.84 kg, 172.72 cm) ld1 ED Course: 08:53 Patient arrived in ED. mr 08:54 Cruz Tony PA is PHCP. jm 08:54 Joleen Ruiz MD is Attending Physician. [facility] 09:08 Triage completed. ld1 09:08 Arm band placed on right wrist. ld1 09:50 Linda Scott, THONG is Primary Nurse. ap3 10:35 CT Chest For PE Angio In Process Unspecified. EDMS 10:36 CT Abd/Pelvis - IV Contrast Only In Process Unspecified. EDMS 10:48 Patient has correct armband on for positive identification. Bed in low position. Call ap3 light in reach. Side rails up X 1. Adult w/ patient. Pulse ox on. NIBP on. Door closed. Noise minimized. 11:15 Theodora Alberto MD is Hospitalizing Provider. geraldine 12:04 Admitting physician to see patient. ap3 15:30 No provider procedures requiring assistance completed. Patient admitted, IV remains in ap3 place. Administered Medications: 09:57 Drug: Lactated Ringers Solution 1000 ml Route: IV; Rate: 1000 bolus; Site: right ap3 antecubital; 14:38 Drug: Zosyn (piperacillin-tazobactam) 3.375 grams Route: IVPB; Infused Over: 60 mins; ap3 Site: right antecubital; Medication: 10:48 VIS not applicable for this client. ap3 Outcome: 11:16 Decision to Hospitalize by Provider. elvira 15:31 Admitted to Tele ap3 15:31 Condition: good 15:31 Instructed on the need for admit. 15:31 Patient left the ED. ap3 Signatures: Dispatcher [employer] EDMS Cruz Tony PA PA Yamileth Mojica mr MikesondraLinda, RN RN ap3 Gloria Jensen RN RN ld1
[2022-08-31] MEDS ORDERED: NA CHLORIDE 0.9% 100 ML ONE (11:22)
[2022-08-31] MEDS ORDERED: PIPERACIL/TAZO 3.375 GM VIAL IV ONE (11:22)
[2022-08-31] MEDS ORDERED: ONDANSETRON 4 MG/2 ML VIAL IV PRN (11:59)
--- NOTE | 2022-08-31 12:02 | P.HP ---
Certification for Inpatient Patient admitted to: Inpatient With expected LOS: >2 Midnights Patient will require the following post-hospital care: None Practitioner: I am a practitioner with admitting privileges, knowledge of patient current condition, hospital course, and medical plan of care. Services: Services provided to patient in accordance with Admission requirements found in Title 42 Section 412.3 of the Code of Federal Regulations Patient History Date of Service: 08/31/22 Reason for admission: Left flank pain, Hypoxia History of Present Illness: Patient is a 62-year-old male with a past medical history significant for chronic back pain, gastric bypass who presents with complaint of left flank pain that has been ongoing for the past 5 days. Patient indicated that pain radiates to his back. Patient rated pain as 9/10 in severity and described pain as aching in quality. Patient reported associated signs and symptoms of fatigue and weakness. Patient denies any other signs and symptoms. Symptoms are aggravated or relieved by nothing. Patient decided to present to the hospital due to worsening symptoms. Of note, spouse reported the patient's O2 sat has been in the 80s on room air. Allergies No Known Allergies Allergy (Unverified 04/24/20 11:28) Home Medications: Buprenorphine HCl/Naloxone HCl [Suboxone 2 mg-0.5 mg Sl Film] 1 each SL BID 04/24/20 Albuterol Inhaler [Ventolin Inhaler*] 2 puff IH Q6H PRN #1 hfa.aer.ad 04/27/20 Mometasone/Formoterol [Dulera 200 Mcg/5 Mcg Inhaler] 2 puff IH BID inhaler 04/27/20 Rivaroxaban [Xarelto] 20 mg PO DAILY 06/01/22 Amox/Clavulanate [Augmentin 875-125 Tab] 875 mg PO BID 14 Days #28 tab 06/04/22 Doxycycline Hyclate 100 mg PO BID 14 Days #28 tab 06/04/22 - Past Medical/Surgical History Diabetic: No -: Opioid dependence -: Chronic back pain -: COPD -: PE on anticoagulation -: Multiple back surgeries -: Gastric bypass Psychosocial/ Personal History: Patient is employed in sales, 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 - Family History Mother -: Diabetes - Social History Smoking Status: Former smoker Alcohol use: No CD- Drugs: No Caffeine use: Yes Place of Residence: Home Review of Systems General: Weakness, Other (fatogue ), Unremarkable Eyes: Unremarkable ENT: Unremarkable Respiratory: Other (Hypoxia ) Cardiovascular: Unremarkable Gastrointestinal: Unremarkable Genitourinary: Unremarkable Musculoskeletal: Unremarkable Integumentary: Unremarkable Neurological: Weakness, Other (Fatigue) Lymphatics: Unremarkable Physical Examination - Studies Laboratory Data (last 24 hrs) 08/31/22 09:50: Sodium 135 L, Potassium 4.3, BUN 16, Creatinine 1.11, Glucose 100, Total Bilirubin 0.3, AST 31, ALT 16, Alkaline Phosphatase 92, Lipase 89 08/31/22 09:50: WBC 12.60 H, Hgb 12.5 L, Hct 37.7 L, Plt Count 336 Assessment and Plan - Plan --Pleural effusion. Imaging indicates large left pleural effusion occupying more than 50% of the left hemithorax. There is near complete atelectasis of the left lower lobe and Small right pleural effusion. Warehouse Lead consulted. Will await further recommendations. --Pneumonia. Noted on imaging. Continue antibiotics, neb treatment with albuterol\Atrovent and O2 therapy prn. -- Chronic back pain. We will manage pain with current pain medication regimen. --Acute respiratory failure. Secondary to pleural effusion and pneumonia. Continue current treatment regimen. --Leukocytosis. Blood cultures pending. Continue antibiotics. --CKD 2. Stable. We will continue to monitor renal functions. --Anemia of chronic disease. H&H stable. We will continue to monitor hemoglobin and transfuse if less than 7.0. --DVT prophylaxis with Lovenox subQ. Discharge Plan: Home Plan to discharge in: Greater than 2 days - Advance Directives Does patient have a Living Will: No Does patient have a Durable POA for Healthcare: Yes - Code Status/Comfort Care Code Status Assessed: Yes Physician Review: Patient Assessed, Agree with Above Assessment and Plan Critical Care: No
[2022-08-31 12:31] LABS: SARS-COV-2 RT PCR NEGATIVE (NEGATIVE)
[2022-08-31] MEDS: IPRATROPIUM BROM 0.5MG/2.5ML NEB SCH ×2 (14:25→20:20)
[2022-08-31] MEDS: ALBUTEROL 2.5 MG/3 ML NEB SOL NEB SCH ×2 (14:25→20:20)
[2022-08-31] MEDS ORDERED: IPRATROPIUM BROM 0.5MG/2.5ML ONE (14:27)
[2022-08-31] MEDS ORDERED: ALBUTEROL 2.5 MG/3 ML NEB SOL ONE (14:27)
[2022-08-31 15:38] LABS: Magnesium 1.6 mg/dL (1.6-2.4); Thyroid Stimulating Hormone 1.37 uIU/mL (0.358-3.740)
[2022-08-31] MEDS: ENOXAPARIN 40 MG/0.4 ML SQ SCH (15:40)
[2022-08-31] MEDS ORDERED: CEFTRIAXONE 1,000 MG in NA CHLORIDE 0.9% 50 ML IVPB SCH (16:00)
[2022-08-31] MEDS ORDERED: AZITHROMYCIN IV 500 MG in NA CHLORIDE 0.9% 250 ML IVPB SCH (16:00)
[2022-08-31 16:04] VITALS: BMI 24.9
[2022-08-31] MEDS ORDERED: MAGNESIUM SULFATE 1 gm IVPB 1 GM/100 ML BAG IV ONE (16:30)
[2022-08-31] MEDS: HOME MED 1 EA UNK [DULERA 200/5 (MOMETASONE/FORMOTEROL) INHALER] IH SCH (20:03)
[2022-08-31] MEDS: HYDROCODONE/APAP 5/325 MG TAB PO PRN (23:44)
[2022-09-01] MEDS: IPRATROPIUM BROM 0.5MG/2.5ML NEB SCH ×4 (02:00→19:10)
[2022-09-01] MEDS: ALBUTEROL 2.5 MG/3 ML NEB SOL NEB SCH ×4 (02:00→19:30)
[2022-09-01 03:46] LABS: Absolute Lymphocytes (CBC) 1.1 K/uL (0.7-4.9); Hematocrit 42.4 % (39.6-49.0); Lymphocytes % 8.3 % (15.3-44.8); MPV 7.3 fL (7.6-11.3); RBC Red Blood Cell Count 4.99 M/uL (4.33-5.43)
[2022-09-01 03:59] LABS: Phosphorus 3.7 mg/dL (2.5-4.9); Potassium 4.3 mmol/L (3.5-5.1)
[2022-09-01] MEDS ORDERED: CEFTRIAXONE 1000 MG/VIAL ONE (07:52)
--- NOTE | 2022-09-01 08:11 | RAD REPORT ---
EXAM DESCRIPTION: [facility] Single View09/01/2022 7:51 am CLINICAL HISTORY: Pleural effusion COMPARISON: August 31, 2022 FINDINGS: Large loculated left pleural effusion without significant change. Small right pleural effusion. Left lung opacities a combination of atelectasis and pneumonia. Mild right lung opacities likely pneu monia Heart is normal size
[2022-09-01] MEDS: HOME MED 1 EA UNK [DULERA 200/5 (MOMETASONE/FORMOTEROL) INHALER] IH SCH ×2 (09:00→21:00)
[2022-09-01] MEDS ORDERED: RIVAROXABAN 20 MG TABLET PO SCH (09:00)
[2022-09-01] MEDS: ASPIRIN 81 MG CHEWABLE TABLET PO SCH (09:28)
[2022-09-01] MEDS: ENOXAPARIN 40 MG/0.4 ML SQ SCH (09:29)
[2022-09-01] MEDS: Levofloxacin 750mg IV 750 MG/150 ML BAG IV SCH (09:32)
[2022-09-01] MEDS: THIAMINE 200 MG/2 ML INJ IVP SCH ×2 (09:36→21:10)
[2022-09-01] MEDS: ACETAMINOPHEN 325 MG TABLET PO PRN (09:38)
[2022-09-01 10:11] LABS: Protime INR 1.2
--- NOTE | 2022-09-01 12:34 | P.CNS ---
Date of Consult: 09/01/22 Chief Complaint: Left flank pain, Hypoxia History of Present Illness: Patient is 62 years of age was doing well admitted with acute onset of severe posterior flank pain and appeared in the hospital this morning when I went to see him he was confused delirious nonresponsive to the he is lost a lot of weight no fever chills Allergies No Known Allergies Allergy (Unverified 04/24/20 11:28) Home Medications: Buprenorphine HCl/Naloxone HCl [Suboxone 2 mg-0.5 mg Sl Film] 1 each SL BID 04/24/20 Albuterol Inhaler [Ventolin Inhaler*] 2 puff IH Q6H PRN #1 hfa.aer.ad 04/27/20 Mometasone/Formoterol [Dulera 200 Mcg/5 Mcg Inhaler] 2 puff IH BID inhaler 04/27/20 Rivaroxaban [Xarelto] 20 mg PO DAILY 06/01/22 Amox/Clavulanate [Augmentin 875-125 Tab] 875 mg PO BID 14 Days #28 tab 06/04/22 Doxycycline Hyclate 100 mg PO BID 14 Days #28 tab 06/04/22 - Past Medical/Surgical History Diabetic: No -: Opioid dependence -: Chronic back pain -: COPD -: PE on anticoagulation -: Multiple back surgeries -: Gastric bypass Psychosocial/ Personal History: Patient is employed in sales, 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 - Family History Mother Medical History: Diabetes - Social History Smoking Status: Current every day smoker Alcohol use: No CD- Drugs: No Caffeine use: Yes Place of Residence: Home Review of Systems is unable to be obtained Physical Examination Temp Pulse Resp BP Pulse Ox 98.3 F 83 14 94/48 L 90 L 09/01/22 12:00 09/01/22 12:00 09/01/22 12:00 09/01/22 12:00 09/01/22 12:00 General: Delirious, Unresponsive Respiratory: Diminished (Diminished on the left side) Cardiovascular: No edema, Normal pulses, Regular rate/rhythm, Normal S1 S2 - Problems (1) Pleural effusion Current Visit: Yes Status: Acute Plan: Patient is 62 years of age admitted with severe onset of left-sided chest pain has a significant pleural effusion on the left side significant worsening since the x-ray done on July 02 last year patient's white count is elevated we will plan to do a thoracentesis stop the Eliquis for now patient was on Xarelto not sure what dose patient is hypoxic low blood pressure changed to IV levofloxacin (2) Liver mass Current Visit: Yes Status: Acute Plan: 7 cm mass liver Need biopsy
[2022-09-02] MEDS: ALBUTEROL 2.5 MG/3 ML NEB SOL NEB SCH ×4 (02:00→20:10)
[2022-09-02] MEDS: IPRATROPIUM BROM 0.5MG/2.5ML NEB SCH ×4 (02:00→20:10)
[2022-09-02] MEDS: ACETAMINOPHEN 325 MG TABLET PO PRN (07:14)
[2022-09-02] MEDS: ENOXAPARIN 40 MG/0.4 ML SQ SCH (08:20)
[2022-09-02] MEDS: Levofloxacin 750mg IV 750 MG/150 ML BAG IV SCH (08:20)
[2022-09-02] MEDS: ASPIRIN 81 MG CHEWABLE TABLET PO SCH (08:20)
[2022-09-02] MEDS: HOME MED 1 EA UNK [DULERA 200/5 (MOMETASONE/FORMOTEROL) INHALER] IH SCH ×2 (08:21→21:00)
--- NOTE | 2022-09-02 08:21 | RAD REPORT ---
EXAM DESCRIPTION: RADChest Single View09/02/2022 5:43 am CLINICAL HISTORY: pleural effusion COMPARISON: Chest Single View dated 09/01/2022; Chest Pa And Lat (2 Views) dated 07/22/2022; Chest Sin gle View dated 06/03/2022; Chest Single View dated 04/25/2020 FINDINGS: The lungs demonstrate partial improvement of aeration in the left upper to mid lung. A la yering moderate pleural effusion with underlying airspace opacification is noted at the left base. Pa tchy right basilar airspace opacification, partially improved compared to the chest radiograph from t he previous day. No pneumothorax or effusion. The cardiomediastinal contours are unremarkable. IMPRESSION: Layering moderate left pleural effusion with underlying airspace disease or atelectasis. Partial improvement of airspace opacification in the left upper to mid lung and right lung base.
[2022-09-02] MEDS: THIAMINE 200 MG/2 ML INJ IVP SCH ×2 (09:14→21:17)
--- NOTE | 2022-09-02 10:16 | P.PN ---
Subjective Date of Service: 09/01/22 Review of Systems 10-point ROS is otherwise unremarkable Physical Examination - Vital Signs Temperature: 97.2 F Blood Pressure: 91/42 Pulse: 70 Respirations: 18 Pulse Ox (%): 97 - Physical Exam General: Alert, In no apparent distress, Oriented x3 HEENT: Atraumatic, PERRLA, EOMI Neck: Supple, JVD not distended Respiratory: Diminished Cardiovascular: Regular rate/rhythm, Normal S1 S2, No murmurs Gastrointestinal: Normal bowel sounds, Soft and benign, Non-distended, No tenderness Musculoskeletal: No clubbing, No swelling, No tenderness Neurological: Sensation intact, Cranial nerves 3-12 intact - Studies Medications List Reviewed: Yes Assessment & Plan - Problems (Diagnosis) (1) Liver mass Current Visit: Yes Status: Acute (2) Pleural effusion Current Visit: Yes Status: Acute (3) COPD (chronic obstructive pulmonary disease) Current Visit: No Status: Acute Qualifiers: COPD type: unspecified COPD Qualified Code(s): J44.9 - Chronic obstructive pulmonary disease, unspecified - Advance Directives Does patient have a Living Will: No Does patient have a Durable POA for Healthcare: Yes Physician Review: Patient Assessed, Agree with Above Assessment and Plan
[2022-09-02 11:36] LABS: Absolute Lymphocytes (CBC) 1.1 K/uL (0.7-4.9); Hematocrit 36.3 % (39.6-49.0); Lymphocytes % 10.7 % (15.3-44.8); MCV 85.6 fL (80-100); MPV 6.9 fL (7.6-11.3); RBC Red Blood Cell Count 4.24 M/uL (4.33-5.43)
[2022-09-02 11:43] LABS: Protime INR 1.25
[2022-09-02 12:00] LABS: Albumin 2.4 g/dL (3.4-5.0); Bilirubin Total 0.2 mg/dL (0.2-1.0); Potassium 3.9 mmol/L (3.5-5.1); Protein, Total 6.9 g/dL (6.4-8.2)
--- NOTE | 2022-09-02 12:59 | P.PN ---
Subjective Date of Service: 09/02/22 Chief Complaint: Left flank pain, Hypoxia No change in patient's condition he complains of lower left lower flank pain that is severe with sleep disruption denies any pulmonary complaints no shortness of breath cough chest pain fever Review of Systems General: Weakness, As per HPI Physical Examination - Vital Signs Temperature: 97.5 F Blood Pressure: 92/52 Pulse: 79 Respirations: 18 Pulse Ox (%): 91 - Physical Exam General: Alert, Oriented x3, Moderate distress Respiratory: Clear to auscultation bilaterally Cardiovascular: No edema, Normal S1 S2 Gastrointestinal: Normal bowel sounds, Soft and benign - Studies Medications List Reviewed: Yes Assessment And Plan - Current Problems (Diagnosis) (1) Pleural effusion Current Visit: Yes Status: Acute Plan: Patient admitted with left-sided flank pain does have effusion on the left side had thoracentesis before Xarelto is currently on hold plan for thoracentesis tomorrow Viktoriya's reviewed white count was elevated procalcitonin level is also declined changed to p.o. levofloxacin possibly underlying infection labs chemistries reviewed (2) Liver mass Current Visit: Yes Status: Acute Plan: 7 cm mass liver Need biopsy patient has been scheduled for a biopsy Physician Review: Patient Assessed, Agree with Above Assessment and Plan
[2022-09-02] MEDS: levoFLOXacin 750 MG TAB PO SCH (14:00)
[2022-09-02] MEDS ORDERED: ALBUMIN HUMAN 25% 50 ML IV ONE (14:18)
[2022-09-02] MEDS ORDERED: POTASSIUM CL SA 10 MEQ TAB PO ONE (17:38)
--- NOTE | 2022-09-02 19:40 | RAD REPORT ---
EXAM DESCRIPTION: US - Liver Only - 09/02/2022 2:03 pm CLINICAL HISTORY: Liver mass FINDINGS: Largest lesion within the liver measures approximately 6 centimeters and lies within the p eriphery of the liver extending towards the dome. It is relatively isoechoic. This will be biopsied t omorrow. IMPRESSION: Hepatic metastatic disease
[2022-09-03] MEDS: ALBUTEROL 2.5 MG/3 ML NEB SOL NEB SCH ×4 (01:25→20:14)
[2022-09-03] MEDS: IPRATROPIUM BROM 0.5MG/2.5ML NEB SCH ×4 (01:25→20:14)
[2022-09-03 05:03] LABS: Potassium 3.8 mmol/L (3.5-5.1)
[2022-09-03] MEDS: HOME MED 1 EA UNK [DULERA 200/5 (MOMETASONE/FORMOTEROL) INHALER] IH SCH ×2 (09:00→20:26)
[2022-09-03] MEDS ORDERED: POTASSIUM CL SA 10 MEQ TAB PO ONE (09:00)
[2022-09-03] MEDS: THIAMINE 200 MG/2 ML INJ IVP SCH ×2 (09:29→20:27)
[2022-09-03] MEDS ORDERED: FENTANYL CITR 100 MCG/2 ML ONE (09:48)
[2022-09-03] MEDS ORDERED: MIDAZOLAM HCL 2 MG/2 ML INJ ONE (09:49)
[2022-09-03] MEDS ORDERED: NALOXONE 0.4 MG/ML VIAL ONE (09:49)
[2022-09-03] MEDS ORDERED: NA CHLORIDE 0.9% 500 ML ONE (11:05)
[2022-09-03] MEDS: HYDROCODONE/APAP 5/325 MG TAB PO PRN ×2 (12:05→18:21)
[2022-09-03 13:00] LABS: Appearance SLT. TURBID (CLEAR); Body Fluid Source PLEURAL; Body Fluid WBC 1612 /mm^3
[2022-09-03 13:01] LABS: Color of fluid Yellow (COLORLESS)
--- NOTE | 2022-09-03 13:18 | RAD REPORT ---
EXAM DESCRIPTION: US - Thoracentesis w/ US Guide - 09/03/2022 11:01 am CLINICAL HISTORY: Left pleural effusion TECHNIQUE: The risks, benefits alternatives to the procedure were explained to the patient and infor med consent obtained. Skiin ,subcutaneous tissues and pleura anesthetized with lidocaine. Under sonographic guidance, an 8 Sinhala catheter was placed into the posterior lower left pleural sp robert. 1.5 liters of yellow fluid removed and given to pathology Patient experienced no immediate complication IMPRESSION: Thoracentesis
--- NOTE | 2022-09-03 13:20 | RAD REPORT ---
EXAM DESCRIPTION: US - Liver Biopsy Procedure - 09/03/2022 12:14 pm CLINICAL HISTORY: Liver mass TECHNIQUE: Risks, benefits and alternatives to the procedure were explained to the patient and infor med consent obtained. Skin, subcutaneous tissues and hepatic capsule were anesthetize with Lidocaine. Under sonographic ana dance a 17 gauge needle was placed into the dominant lesion within the liver. Through this an 18 gaug e needle placed. Four 2 centimeter core specimens were obtained and put in formalin and given to path ology. Post biopsy images do not demonstrate a hematoma. Patient experienced no immediate complication. Patient was given 3 milligrams Versed said and 150 micrograms fentanyl intravenously. Vital signs mon itored. Conscious sedation performed by the nurse in attendance for approximately 30 minutes IMPRESSION: Core biopsies of the liver vas
--- NOTE | 2022-09-03 14:01 | RAD REPORT ---
EXAM DESCRIPTION: RAD - Chest Single View - 09/03/2022 1:38 pm CLINICAL HISTORY: effusion s/p theoracentesis COMPARISON: Chest Single View dated 09/02/2022; Chest Single View dated 09/01/2022; Chest Pa And Lat (2 Views) dated 07/22/2022; Chest Single View dated 06/03/2022; Thoracentesis w/ US Guide dated ; Liver Biopsy Procedure dated 09/03/2022; Abdomen Pelvis W Contrast dated 08/31/2022 FINDINGS: Lines: None. Lungs: Worsening aeration of the left lung. Bilateral interstitial airspace disease. Elevation of rig ht hemidiaphragm . Pleural: Status post left-sided thoracentesis. Left pleural effusion has decreased in size. Cardiac: Similar size and configuration . Mediastinum: Within normal limits. Bones: No acute fractures. Lower thoracic fusion hardware. Other: None IMPRESSION: No pneumothorax following left-sided thoracentesis. Increasing widespread opacities in l eft lung could be due to a component of re-expansion pulmonary edema.
[2022-09-03] MEDS: levoFLOXacin 750 MG TAB PO SCH (14:10)
[2022-09-03 15:34] LABS: Absolute Lymphocytes (CBC) 1.4 K/uL (0.7-4.9); Hematocrit 37.5 % (39.6-49.0); Lymphocytes % 12.6 % (15.3-44.8); MCV 85.1 fL (80-100); MPV 6.8 fL (7.6-11.3); RBC Red Blood Cell Count 4.41 M/uL (4.33-5.43)
[2022-09-03 15:49] LABS: Albumin 2.5 g/dL (3.4-5.0); Bilirubin Total 0.3 mg/dL (0.2-1.0); Potassium 4.1 mmol/L (3.5-5.1); Protein, Total 6.9 g/dL (6.4-8.2)
[2022-09-03] MEDS: ACETAMINOPHEN 325 MG TABLET PO PRN (23:02)
[2022-09-04] MEDS: IPRATROPIUM BROM 0.5MG/2.5ML NEB SCH ×4 (02:55→20:10)
[2022-09-04] MEDS: ALBUTEROL 2.5 MG/3 ML NEB SOL NEB SCH ×4 (02:55→20:10)
[2022-09-04] MEDS: HYDROCODONE/APAP 5/325 MG TAB PO PRN ×3 (06:13→22:27)
[2022-09-04] MEDS: levoFLOXacin 750 MG TAB PO SCH (07:45)
[2022-09-04] MEDS: THIAMINE 200 MG/2 ML INJ IVP SCH ×2 (07:46→21:20)
[2022-09-04] MEDS: HOME MED 1 EA UNK [DULERA 200/5 (MOMETASONE/FORMOTEROL) INHALER] IH SCH ×2 (07:46→21:00)
[2022-09-04] MEDS: METHYLPREDNISOLONE 40 MG INJ IV SCH ×2 (09:23→16:19)
[2022-09-04] MEDS: ACETAMINOPHEN 325 MG TABLET PO PRN (10:22)
--- NOTE | 2022-09-04 10:28 | P.PN ---
Subjective Date of Service: 09/04/22 Chief Complaint: Left flank pain, Hypoxia Patient is improving chronic pain quiring constant pain medication chest x-ray looks little worse minimal oxygen requirement Review of Systems General: Malaise Respiratory: Shortness of Breath Musculoskeletal: Other (Pain as stated for) Physical Examination - Vital Signs Temperature: 97.3 F Blood Pressure: 117/55 Pulse: 76 Respirations: 18 Pulse Ox (%): 93 - Physical Exam General: Alert, Oriented x3, Other (Drowsy from pain medication) Respiratory: Clear to auscultation bilaterally, Diminished (Patient on the left side with some crackle) Cardiovascular: No edema, Normal S1 S2 - Studies Medications List Reviewed: Yes Assessment And Plan - Current Problems (Diagnosis) (1) Pleural effusion Current Visit: Yes Status: Acute Plan: S/p thoracentesis lymphocytic predominant Viktoriya's pending vital signs stable possible discharge home on prednisone and levofloxacin patient wants to go home able to ambulate at the bedside will evaluate for home O2 (2) Liver mass Current Visit: Yes Status: Acute Plan: 7 cm mass liver Need biopsy FNA done Physician Review: Patient Assessed, Agree with Above Assessment and Plan
[2022-09-05] MEDS: METHYLPREDNISOLONE 40 MG INJ IV SCH ×2 (00:04→09:11)
[2022-09-05] MEDS: IPRATROPIUM BROM 0.5MG/2.5ML NEB SCH ×2 (01:45→07:56)
[2022-09-05] MEDS: ALBUTEROL 2.5 MG/3 ML NEB SOL NEB SCH ×2 (01:45→07:56)
[2022-09-05] MEDS: HYDROCODONE/APAP 5/325 MG TAB PO PRN (05:03)
[2022-09-05 08:04] VITALS: O2SAT 92
[2022-09-05 08:16] VITALS: BP 102/56; TEMP 98.1
[2022-09-05] MEDS: HOME MED 1 EA UNK [DULERA 200/5 (MOMETASONE/FORMOTEROL) INHALER] IH SCH (09:00)
[2022-09-05] MEDS: levoFLOXacin 750 MG TAB PO SCH (09:12)
[2022-09-05] MEDS: THIAMINE 200 MG/2 ML INJ IVP SCH (09:12)
[2022-09-05] MEDS ORDERED: MORPHINE 2 MG/ML SYR IV ONE (09:19)
[2022-09-06 19:53] LABS: TOTAL PROTEIN, PLEURAL FLUID 4.3 g/dL
[2022-09-08 08:21] LABS: ALBUMIN, PLEURAL FLUID 2.3 g/dL
== END 2022-09-05 11:41 | disposition home or self-care (01) | DRG 435 ==
LOC: ER 08:51 → ERHOLD 11:54 → 4TH 14:45
PROVIDERS: ADMIT Hospitalist; ATTEND Hospitalist
PROC: 0W9B3ZX Drainage of Left Pleural Cavity, Percutaneous Approach, Diagnostic (ICD-10-PCS; principal; 2022-09-02)
PROC: 0FB03ZX Excision of Liver, Percutaneous Approach, Diagnostic (ICD-10-PCS; 2022-09-03)
DX: C22.8 Malignant neoplasm of liver, primary, unspecified as to type (principal); J18.9 Pneumonia, unspecified organism; J96.00 Acute respiratory failure, unspecified whether with hypoxia or hypercapnia; J44.0 Chronic obstructive pulmonary disease with (acute) lower respiratory infection; J91.0 Malignant pleural effusion; N18.2 Chronic kidney disease, stage 2 (mild); D63.8 Anemia in other chronic diseases classified elsewhere; K76.9 Liver disease, unspecified; D72.829 Elevated white blood cell count, unspecified; Z98.84 Bariatric surgery status; Z79.01 Long term (current) use of anticoagulants; Z87.891 Personal history of nicotine dependence; Z86.711 Personal history of pulmonary embolism; Z79.899 Other long term (current) drug therapy; Z20.822 Contact with and (suspected) exposure to COVID-19
CPT/HCPCS: 0240U; 32555; 36415; 47000; 71045; 71275; 74177; 76705; 80048; 80053; 80061; 81003; 82042; 82105; 82140; 82945; 83036; 83605; 83615; 83690; 83735; 84100; 84145; 84157; 84439; 84443; 85025; 85610; 85730; 87040; 87070; 88108; 88305; 88307; 89050; 94640; 94760; 96374; 99285; J0456; J1650; J2250; J2270; J2310; J2543; J2920; J3010; J3411; J3475; J7040; J7050; J7120; J7613; J7644; P9047; Q9967